=== PATIENT | female | born 1945 | race Caucasian/White ===

== ENCOUNTER 2016-09-05 20:29 | Emergency (ER) | payer OTHER, MEDICARE ==
[~2016-09-05] VITALS: Ht 167.6 cm; Wt 81.7 kg
[~2016-09-05 20:29] MED LIST: CALCTAB5 PO; CHOL100010 PO; CLON1TAB3 PO; FLEC100T21 PO; HYD50 PO; MAGN400T6 PO; METO25TA56 PO; PRT/40 PO; RIVA1TAB4 PO
[2016-09-05 20:37] VITALS: TEMP 36.8; Ht 167.6 cm; Wt 81.7 kg
[2016-09-05] MEDS ORDERED: HydrALAZINE HCL 20 MG/ML VIAL IV. STA (21:36)
--- NOTE | 2016-09-05 21:56 | DIAGNOSTIC IMAGING REPORT ---
CHEST ONE VIEW PORTABLE CLINICAL HISTORY: Chest pain. COMPARISON STUDY: Chest radiograph September 21, 2015. FINDINGS: Lung volumes are normal. There is no pneumothorax or pleural effusion. There is no evidence of pulmonary edema. Mild cardiomegaly is unchanged. No consolidation is identified to suggest pneumonia. IMPRESSION: No acute cardiopulmonary findings. No change in appearance of the chest. Electronically signed by: Joey Hill M.D. 09/05/2016 9:55 PM Dictated Date/Time: 09/05/2016 9:54 PM
[2016-09-05] MEDS ORDERED: CHOL200010 PO (22:08)
[2016-09-05] MEDS ORDERED: FLEC150T PO (22:08)
[2016-09-05] MEDS ORDERED: CALC-393 PO (22:08)
[2016-09-05 22:10] VITALS: O2SAT 98
[2016-09-05 22:17] LABS: BASO % 0.3 %; BASO ABS # 0.03 K/uL (0-0.2); COMPLETE YES; EOS % 2.5 %; HEMATOCRIT 41.5 % (37-47); IG% 0.2 %; LYMPH % 22.3 %; LYMPH ABS # 1.99 K/uL (1.2-3.4); MEAN CELL VOLUME 88.1 fL (80-100); MEAN CORPUSCULAR HEMOGLOBIN 31.8 pg (25-34); MEAN CORPUSCULAR HGB CONC 36.1 g/dl (32-36); MEAN PLATELET VOLUME 9.5 fL (7.4-10.4); MONO % 12.6 %; NEUT % 62.1 %; PLATELET COUNT 260 K/uL (130-400); RED BLOOD COUNT 4.71 M/uL (4.2-5.4); WHITE BLOOD COUNT 8.94 K/uL (4.8-10.8)
[2016-09-05 22:36] LABS: URINE APPEARANCE CLEAR (CLEAR); URINE BILIRUBIN NEG (NEG); URINE COLOR YELLOW; URINE NITRITE NEG (NEG); URINE SPECIFIC GRAVITY 1.002 (1.000-1.030); UROBILINOGEN NEG (NEG); ZZUR CULT IF INDIC CLEAN CATCH NO
--- NOTE | 2016-09-05 22:36 | DIAGNOSTIC IMAGING REPORT ---
CT OF THE HEAD WITHOUT CONTRAST CLINICAL HISTORY: Headache. Hypertension. COMPARISON STUDY: Head CT November 30, 2015. CT DOSE: 537.48 mGy.cm TECHNIQUE: Helical axial images of the head were obtained without IV contrast. Automated exposure control was utilized for the study. FINDINGS: No acute intracranial hemorrhage, midline shift or mass effect is present. Ventricular system is stable. Basilar cisterns are patent. There are no extra-axial collections. Peña-white differentiation is maintained. There are no findings to suggest acute dural sinus thrombosis or acute territorial infarct. There are no significant calvarial abnormalities. Visualized portions of the sinuses and mastoid air cells are clear. IMPRESSION: No acute intracranial findings. Electronically signed by: Joey Hill M.D. 09/05/2016 10:34 PM Dictated Date/Time: 09/05/2016 10:32 PM
[2016-09-05 22:46] LABS: MANUAL MICROSCOPIC REQUIRED? NO; REVIEW REQ? NO
[2016-09-05 22:51] LABS: ALT/SGPT 27 U/L (12-78); BLOOD UREA NITROGEN 21 mg/dl (7-18); BUN/CREATININE RATIO 24.2 (10-20); CALCIUM 9.2 mg/dl (8.5-10.1); CARBON DIOXIDE 31 mmol/L (21-32); CHLORIDE 101 mmol/L (98-107); CREATININE 0.86 mg/dl (0.60-1.20); GLUCOSE 97 mg/dl (70-99); POTASSIUM 3.8 mmol/L (3.5-5.1); SODIUM 139 mmol/L (136-145)
[2016-09-05 23:04] LABS: ALKALINE PHOSPHATASE 107 U/L (45-117); AST/SGOT 21 U/L (15-37)
--- NOTE | 2016-09-05 23:13 | EMERGENCY ROOM VISIT NOTE ---
ED Visit Note First contact with patient: 21:27 Patient with history of hypertension and elevated blood pressure. Reexamination patient is nonfocal neurologically he has decreased blood pressure after IV hydralazine. I agree with Zo Hart physician butcher assistant workup Problem List Medical Problems: (1) AF (atrial fibrillation) Status: Chronic (2) GERD (gastroesophageal reflux disease) Status: Chronic (3) HTN (hypertension) Status: Chronic (4) Migraine Status: Chronic (5) Restless Legs Syndrome Status: Chronic Current/Historical Medications Scheduled Calcium Carbonate (Calcium), 600 MG PO DAILY Cholecalciferol (Vitamin D), 2,000 UNIT PO DAILY Clonazepam (Klonopin), 1 MG PO HS Flecainide Acetate (Flecainide Acetate), 150 MG PO BID Hydrochlorothiazide (Hydrochlorothiazide), 50 MG PO DAILY Magnesium Oxide (Mag-Ox), 800 MG PO QAM Metoprolol Tartrate (Lopressor) (Lopressor), 25 MG PO BID Pantoprazole (Pantoprazole Sodium), 40 MG PO QPM Rivaroxaban (Xarelto), 20 MG PO QPM Allergies Coded Allergies: Oxycodone (Verified Allergy, Unknown, adverse effects on blood pressure, ) Prednisone (Verified Adverse Reaction, Intermediate, WEAKNESS, 11/30/15) Lisinopril (Verified Adverse Reaction, Unknown, cough, 11/30/15) Reports Dr Meng/project director, took pt off this medication Morphine (Verified Adverse Reaction, Unknown, ADVERSE EFFECTS OF BLOOD PRESSURE, 11/30/15) Vital Signs Date Time Temp Pulse Resp B/P Pulse Ox O2 Delivery O2 Flow Rate FiO2 09/05/16 22:10 98 Room Air 09/05/16 22:10 98 Room Air 09/05/16 22:10 66 16 199/100 98 Room Air 09/05/16 22:04 57 09/05/16 20:37 36.8 53 18 232/109 97 Room Air Laboratory Results 09/05/16 22:00 Red Blood Count 4.71, Mean Corpuscular Volume 88.1, Mean Corpuscular Hemoglobin 31.8, Mean Corpuscular Hemoglobin Concent 36.1, Mean Platelet Volume 9.5, Neutrophils (%) (Auto) 62.1, Lymphocytes (%) (Auto) 22.3, Monocytes (%) (Auto) 12.6, Eosinophils (%) (Auto) 2.5, Basophils (%) (Auto) 0.3, Neutrophils # (Auto ) 5.55, Lymphocytes # (Auto) 1.99, Monocytes # (Auto) 1.13, Eosinophils # (Auto ) 0.22, Basophils # (Auto) 0.03 09/05/16 22:00 Test 09/05/16 22:00 White Blood Count 8.94 K/uL (4.8-10.8) Red Blood Count 4.71 M/uL (4.2-5.4) Hemoglobin 15.0 g/dL (12.0-16.0) Hematocrit 41.5 % (37-47) Mean Corpuscular Volume 88.1 fL (80-100) Mean Corpuscular Hemoglobin 31.8 pg (25-34) Mean Corpuscular Hemoglobin Concent 36.1 g/dl (32-36) Platelet Count 260 K/uL (130-400) Mean Platelet Volume 9.5 fL (7.4-10.4) Neutrophils (%) (Auto) 62.1 % Lymphocytes (%) (Auto) 22.3 % Monocytes (%) (Auto) 12.6 % Eosinophils (%) (Auto) 2.5 % Basophils (%) (Auto) 0.3 % Neutrophils # (Auto) 5.55 K/uL (1.4-6.5) Lymphocytes # (Auto) 1.99 K/uL (1.2-3.4) Monocytes # (Auto) 1.13 K/uL (0.11-0.59) Eosinophils # (Auto) 0.22 K/uL (0-0.5) Basophils # (Auto) 0.03 K/uL (0-0.2) RDW Standard Deviation 38.5 fL (36.4-46.3) RDW Coefficient of Variation 12.0 % (11.5-14.5) Immature Granulocyte % (Auto) 0.2 % Immature Granulocyte # (Auto) 0.02 K/uL (0.00-0.02) Urine Color YELLOW Urine Appearance CLEAR (CLEAR) Urine pH 6.0 (4.5-7.5) Urine Specific [place] 1.002 (1.000-1.030) Urine Protein NEG (NEG) Urine Glucose (UA) NEG (NEG) Urine Ketones NEG (NEG) Urine Occult Blood NEG (NEG) Urine Nitrite NEG (NEG) Urine Bilirubin NEG (NEG) Urine Urobilinogen NEG (NEG) Urine Leukocyte Esterase MODERATE (NEG) Urine WBC (Auto) 5-10 /hpf (0-5) Urine RBC (Auto) 0-4 /hpf (0-4) Urine Hyaline Casts (Auto) 0 /lpf (0-5) Urine Epithelial Cells (Auto) 10-20 /lpf (0-5) Urine Bacteria (Auto) NEG (NEG) Anion Gap 7.0 mmol/L (3-11) Est Creatinine Clear Calc Drug Dose 62.8 ml/min Estimated GFR () 77.7 Estimated GFR (Non- 67.0 BUN/Creatinine Ratio 24.2 (10-20) Calcium Level 9.2 mg/dl (8.5-10.1) Total Bilirubin 0.3 mg/dl (0.2-1) Direct Bilirubin mg/dl (0-0.2) Aspartate Amino Transf (AST/SGOT) 21 U/L (15-37) Alanine Aminotransferase (ALT/SGPT) 27 U/L (12-78) Alkaline Phosphatase 107 U/L (45-117) Troponin I < 0.015 ng/ml (0-0.045) Total Protein 7.3 gm/dl (6.4-8.2) Albumin 3.7 gm/dl (3.4-5.0) Thyroid Stimulating Hormone (TSH) 3.560 uIu/ml (0.300-4.500) Chemistry Specimen Hemolysis Medications Administered Medications (Trade) Dose Ordered Sig/Rebecca Route Start Time Stop Time Status Last Admin Dose Admin Hydralazine HCl (HydrALAZINE INJ) 10 mg NOW STAT IV. 09/05/16 21:36 09/05/16 21:37 DC 09/05/16 22:15 10 MG Departure Information Referrals Tessie Pathak DO (PCP) Patient Instructions My [facility]
[2016-09-05 23:20] VITALS: BP 148/84; PULSE 70; O2SAT 98
--- NOTE | 2016-09-06 01:05 | EMERGENCY ROOM VISIT NOTE ---
History First contact with patient: 21:27 Chief Complaint: HYPERTENSION Stated Complaint: HIGH BP History of Present Illness The patient is a 71 year old female who presents to the Emergency Room with complaints of headache and head pressure with elevated blood pressure today that started around 5:30 PM. Patient states she's had problems with her blood pressure. She describes the headache as throbbing, ranging in severity 5 out of 10 throughout the frontal region. Nothing makes it better or worse. Patient denies chest pain, dyspnea, fever, chills, nausea, vomiting, diarrhea, weakness, numbness, tingling, vision problems, leg pain or swelling. No other complains per patient. No history of heart attack or stroke. She is on Xarelto for A. fib. No Other blood thinners. 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 Review of Systems See HPI for pertinent positives & negatives. A total of 10 systems reviewed and were otherwise negative. Past Medical/Surgical History Medical Problems: (1) AF (atrial fibrillation) (2) GERD (gastroesophageal reflux disease) (3) HTN (hypertension) (4) Migraine (5) Restless Legs Syndrome Family History Cancer FH: heart disease Stroke Social History Smoking Status: Never Smoker Marital Status: Housing Status: lives with significant other Occupation Status: retired Current/Historical Medications Scheduled Calcium Carbonate (Calcium), 600 MG PO DAILY Cholecalciferol (Vitamin D), 2,000 UNIT PO DAILY Clonazepam (Klonopin), 1 MG PO HS Flecainide Acetate (Flecainide Acetate), 150 MG PO BID Hydrochlorothiazide (Hydrochlorothiazide), 50 MG PO DAILY Magnesium Oxide (Mag-Ox), 800 MG PO QAM Metoprolol Tartrate (Lopressor) (Lopressor), 25 MG PO BID Pantoprazole (Pantoprazole Sodium), 40 MG PO QPM Rivaroxaban (Xarelto), 20 MG PO QPM Allergies Coded Allergies: Oxycodone (Verified Allergy, Unknown, adverse effects on blood pressure, ) Prednisone (Verified Adverse Reaction, Intermediate, WEAKNESS, 11/30/15) Lisinopril (Verified Adverse Reaction, Unknown, cough, 11/30/15) Reports Dr Meng/pigment making supervisor, took pt off this medication Morphine (Verified Adverse Reaction, Unknown, ADVERSE EFFECTS OF BLOOD PRESSURE, 11/30/15) Physical Exam Vital Signs Date Time Temp Pulse Resp B/P Pulse Ox O2 Delivery O2 Flow Rate FiO2 09/05/16 23:20 70 16 148/84 98 09/05/16 22:10 98 Room Air 09/05/16 22:10 98 Room Air 09/05/16 22:10 66 16 199/100 98 Room Air 09/05/16 22:04 57 09/05/16 20:37 36.8 53 18 232/109 97 Room Air Physical Exam VITALS: Vitals are noted on the nurse's note and reviewed by myself. Vital signs hypertensive. GENERAL: Pleasant female, in no acute distress, nondiaphoretic, well-developed well-nourished. SKIN: The skin was without rashes, erythema, edema, or bruising. There is no tenting of the skin. Capillary reflex less than 2 seconds. HEAD: Normocephalic atraumatic. EARS: External auditory canals clear, tympanic membranes pearly dewey without erythema or effusion bilaterally. EYES: Pupils equal round and reactive to light and accommodation. Conjunctivae without injection, sclerae without icterus. Extraocular movements intact. NOSE: Patent, turbinates without inflammation or discharge. No sinus tenderness. MOUTH: Mucous membranes moist. Pharynx without erythema or exudate. Uvula midline. Airway patent. Tongue does not deviate. NECK: Supple without nuchal rigidity. No lymphadenopathy. No thyromegaly. Cervical spine is nontender. No JVD. HEART: Regular rate and rhythm without murmurs gallops or rubs. LUNGS: Clear to auscultation bilaterally without wheezes, rales or rhonchi. No dullness to percussion. No retractions or accessory muscle use. ABDOMEN: Positive bowel sounds x 4. Normal tympanic percussion. Soft, nontender, without masses or organomegaly. Carrillo sign negative. No guarding or rebound tenderness. MUSCULOSKELETAL: No muscle atrophy, erythema, or edema noted. NEURO: Patient was alert and oriented to person place and time. Normal sensation to light and sharp touch. No focal neurological deficits. Cranial nerves II through XII grossly intact. No pronator drift. Cerebellar exam intact. 5 out of 5 strength throughout Medical Decision & Procedures Laboratory Results 09/05/16 22:00 Red Blood Count 4.71, Mean Corpuscular Volume 88.1, Mean Corpuscular Hemoglobin 31.8, Mean Corpuscular Hemoglobin Concent 36.1, Mean Platelet Volume 9.5, Neutrophils (%) (Auto) 62.1, Lymphocytes (%) (Auto) 22.3, Monocytes (%) (Auto) 12.6, Eosinophils (%) (Auto) 2.5, Basophils (%) (Auto) 0.3, Neutrophils # (Auto ) 5.55, Lymphocytes # (Auto) 1.99, Monocytes # (Auto) 1.13, Eosinophils # (Auto ) 0.22, Basophils # (Auto) 0.03 09/05/16 22:00 Test 09/05/16 22:00 White Blood Count 8.94 K/uL (4.8-10.8) Red Blood Count 4.71 M/uL (4.2-5.4) Hemoglobin 15.0 g/dL (12.0-16.0) Hematocrit 41.5 % (37-47) Mean Corpuscular Volume 88.1 fL (80-100) Mean Corpuscular Hemoglobin 31.8 pg (25-34) Mean Corpuscular Hemoglobin Concent 36.1 g/dl (32-36) Platelet Count 260 K/uL (130-400) Mean Platelet Volume 9.5 fL (7.4-10.4) Neutrophils (%) (Auto) 62.1 % Lymphocytes (%) (Auto) 22.3 % Monocytes (%) (Auto) 12.6 % Eosinophils (%) (Auto) 2.5 % Basophils (%) (Auto) 0.3 % Neutrophils # (Auto) 5.55 K/uL (1.4-6.5) Lymphocytes # (Auto) 1.99 K/uL (1.2-3.4) Monocytes # (Auto) 1.13 K/uL (0.11-0.59) Eosinophils # (Auto) 0.22 K/uL (0-0.5) Basophils # (Auto) 0.03 K/uL (0-0.2) RDW Standard Deviation 38.5 fL (36.4-46.3) RDW Coefficient of Variation 12.0 % (11.5-14.5) Immature Granulocyte % (Auto) 0.2 % Immature Granulocyte # (Auto) 0.02 K/uL (0.00-0.02) Urine Color YELLOW Urine Appearance CLEAR (CLEAR) Urine pH 6.0 (4.5-7.5) Urine Specific [place] 1.002 (1.000-1.030) Urine Protein NEG (NEG) Urine Glucose (UA) NEG (NEG) Urine Ketones NEG (NEG) Urine Occult Blood NEG (NEG) Urine Nitrite NEG (NEG) Urine Bilirubin NEG (NEG) Urine Urobilinogen NEG (NEG) Urine Leukocyte Esterase MODERATE (NEG) Urine WBC (Auto) 5-10 /hpf (0-5) Urine RBC (Auto) 0-4 /hpf (0-4) Urine Hyaline Casts (Auto) 0 /lpf (0-5) Urine Epithelial Cells (Auto) 10-20 /lpf (0-5) Urine Bacteria (Auto) NEG (NEG) Anion Gap 7.0 mmol/L (3-11) Est Creatinine Clear Calc Drug Dose 62.8 ml/min Estimated GFR () 77.7 Estimated GFR (Non- 67.0 BUN/Creatinine Ratio 24.2 (10-20) Calcium Level 9.2 mg/dl (8.5-10.1) Total Bilirubin 0.3 mg/dl (0.2-1) Direct Bilirubin mg/dl (0-0.2) Aspartate Amino Transf (AST/SGOT) 21 U/L (15-37) Alanine Aminotransferase (ALT/SGPT) 27 U/L (12-78) Alkaline Phosphatase 107 U/L (45-117) Troponin I < 0.015 ng/ml (0-0.045) Total Protein 7.3 gm/dl (6.4-8.2) Albumin 3.7 gm/dl (3.4-5.0) Thyroid Stimulating Hormone (TSH) 3.560 uIu/ml (0.300-4.500) Chemistry Specimen Hemolysis Medications Administered Medications (Trade) Dose Ordered Sig/Rebecca Route Start Time Stop Time Status Last Admin Dose Admin Hydralazine HCl (HydrALAZINE INJ) 10 mg NOW STAT IV. 09/05/16 21:36 09/05/16 21:37 DC 09/05/16 22:15 10 MG ED Course Prior records/ancillary studies reviewed regarding the history above. Triage Nursing notes reviewed. Additional history obtained from the family. The patient's history was concerning for hypertension. Differential diagnosis: Etiologies such as benign hypertension, hypertensive emergency, cardiovascular pathology, pheochromocytoma, electrolyte abnormality, renal disease, endorgan damage, as well as others were entertained. Physical examination: As above. No signs of end organ damage. ER treatment provided: Hydralazine On reassessment the patient felt better. Diagnostic interpretation by me: The electrocardiogram was negative for pathologic change. Normal sinus, normal intervals, no acute ST-T wave changes. Impression sinus bradycardia interpreted by myself The labs revealed no worrisome leukocytosis or electrolyte abnormality Imaging studies: Head CT was read by radiology and negative for intracranial bleed This appears to be consistent with effort and urgency. Patient's blood pressure did improve. She is advised to monitor her blood pressure. Patient was neurovascularly and neurologically intact. She is well-appearing. She is advised to monitor blood pressure and follow-up family care in a few days or here in the ER sooner for chest pain, difficulty breathing, elevated blood pressure, numbness, tingling, worsening signs or symptoms or as needed. By the evaluation outlined above emergent etiologies such as hypertensive emergency, pheochromocytoma, endorgan damage, cardiac ischemia, aortic dissection, pulmonary embolism, pneumonia, pneumothorax, infections, gastrointestinal, as well as others were deemed relatively unlikely. The pt informed about the findings as listed above. All questions were answered and pleased with the treatment. Return instructions were outlined and the patient was discharged in stable condition. Referral: The patient was referred back to their primary care physician for follow-up in 2 to 3 days for a recheck of the current condition. Case reviewed with my attending Medical Decision As above Impression Primary Impression: Hypertensive urgency Departure Information Referrals Tessie Pathak DO (PCP) Patient Instructions My [facility]
[2016-09-26] MEDS ORDERED: CRG125 PO (13:18)
[2016-09-26] MEDS ORDERED: CZR25 PO (13:18)
== END 2016-09-05 23:24 | disposition home or self-care (01) ==
LOC: C.EDB 20:32 → C.EDC 23:24
DX: I16.0 Hypertensive urgency (principal); I48.91 Unspecified atrial fibrillation; K21.9 Gastro-esophageal reflux disease without esophagitis; G43.909 Migraine, unspecified, not intractable, without status migrainosus; G25.81 Restless legs syndrome; Z80.9 Family history of malignant neoplasm, unspecified; Z82.49 Family history of ischemic heart disease and other diseases of the circulatory system; Z79.01 Long term (current) use of anticoagulants; Z79.899 Other long term (current) drug therapy

== ENCOUNTER 2016-09-24 20:26 | Observation (INO) | payer OTHER, MEDICARE ==
[~2016-09-24] VITALS: Ht 167.6 cm; Wt 81.2 kg
[~2016-09-24 20:26] MED LIST changes: +CALC-393 PO; -CALCTAB5 PO; -CHOL100010 PO; +CHOL200010 PO; -FLEC100T21 PO; +FLEC150T PO; +PANT40TA2 PO; -PRT/40 PO
--- NOTE | 2016-09-24 21:04 | DIAGNOSTIC IMAGING REPORT ---
CHEST ONE VIEW PORTABLE CLINICAL HISTORY: Chest pain. Hypertension COMPARISON STUDY: Chest radiograph September 05, 2016. FINDINGS: There is no pneumothorax or pleural effusion. Linear left basilar opacity is suggestive of atelectasis. Mild cardiomegaly is unchanged. Interstitial thickening is unchanged. There is no consolidation to suggest pneumonia. IMPRESSION: No acute cardiopulmonary findings. Stable cardiomegaly and interstitial thickening. Electronically signed by: Joey Hill M.D. 09/24/2016 9:03 PM Dictated Date/Time: 09/24/2016 9:02 PM
[2016-09-24 21:06] LABS: BASO % 0.4 %; BASO ABS # 0.03 K/uL (0-0.2); COMPLETE YES; EOS % 3.6 %; HEMATOCRIT 40.9 % (37-47); IG% 0.1 %; LYMPH % 28.6 %; LYMPH ABS # 1.91 K/uL (1.2-3.4); MEAN CELL VOLUME 88.7 fL (80-100); MEAN CORPUSCULAR HEMOGLOBIN 31.9 pg (25-34); MEAN CORPUSCULAR HGB CONC 35.9 g/dl (32-36); MEAN PLATELET VOLUME 9.9 fL (7.4-10.4); MONO % 12.6 %; NEUT % 54.7 %; PLATELET COUNT 266 K/uL (130-400); RED BLOOD COUNT 4.61 M/uL (4.2-5.4); WHITE BLOOD COUNT 6.67 K/uL (4.8-10.8)
[2016-09-24] MEDS ORDERED: LABETALOL HCL IV 5 MG/ML 20ML IV STA (21:12)
[2016-09-24 21:15] LABS: INR 1.1 (0.9-1.1); PARTIAL THROMBOPLASTIN RATIO 1.3
[2016-09-24 21:50] LABS: POTASSIUM 3.7 mmol/L (3.5-5.1)
[2016-09-24 21:51] LABS: BUN/CREATININE RATIO 19.6 (10-20); CALCIUM 9.2 mg/dl (8.5-10.1); CREATININE 0.93 mg/dl (0.60-1.20)
[2016-09-24] MEDS ORDERED: CTP1CL PO (22:12)
[2016-09-24 22:39] LABS: MAGNESIUM 1.7 mg/dl (1.8-2.4)
[2016-09-24] MEDS ORDERED: LOSARTAN POTASSIUM 25 MG TAB PO ONE (23:34)
[2016-09-24] MEDS ORDERED: POTASSIUM CHLORIDE 10 MEQ TABCR PO STA (23:34)
[2016-09-24] MEDS ORDERED: CLONAZEPAM 1 MG TAB PO ONE (23:34)
[2016-09-24] MEDS ORDERED: MAGNESIUM SULFATE 1GM / D5W 1 GM in PREMIXED IN D5W 100 ML IV ONE (23:45)
[2016-09-24] MEDS ORDERED: HYDROmorphone INJ 0.5 MG/0.5 ML SYR IV PRN (23:45)
[2016-09-24] MEDS ORDERED: ONDANSETRON INJ 2 MG/ML 2 ML VIAL IV PRN (23:45)
[2016-09-24] MEDS ORDERED: LORAZEPAM 2 MG/ML 1 ML VIAL IV PRN (23:45)
[2016-09-24] MEDS ORDERED: TRAMADOL HCL 50 MG TAB PO PRN (23:45)
[2016-09-25] VITALS (11 sets, daily range): BP systolic 118–199; BP diastolic 74–93; PULSE 51–80; TEMP 36.3–36.5; O2SAT 94–97; Ht 167.6 cm; Wt 81.2 kg
[2016-09-25] MEDS ORDERED: IV FLUIDS COMPLETED PRN (00:15)
[2016-09-25] MEDS ORDERED: MAGNESIUM SULFATE 1GM / D5W 1 GM BAG ONE (00:26)
[2016-09-25] MEDS ORDERED: CLONAZEPAM 0.5 MG TAB ONE (00:26)
--- NOTE | 2016-09-25 00:28 | EMERGENCY ROOM VISIT NOTE ---
History Report prepared by Carlin: Veronika Tariq Under the Supervision of: Dr. Lázaro Painter M.D. First contact with patient: 20:31 Chief Complaint: CHEST PAIN Stated Complaint: CHEST PAIN, HIGH BP 191/98 History of Present Illness The patient is a 71 year old female who presents to the Emergency Room with complaints of intermittent left sided chest pain beginning 30 minutes prior to arrival. She described the pain as a heaviness and gas sensation. The patient is experiencing shortness of breath. She also notes her blood pressure has been rising for the past 2 hours with her highest reading being 191/98. She states that she is taking her blood pressure medication. The patient's blood pressure medication was recently adjusted after her last ED visit for hypertension. She is currently on Losartan and Clonidine. She states her last dosage of Clonidine was at 6:30pm this evening. She states she stopped taking losartan because of side effects. The patient denies chest pain like this before, nausea, or diaphoresis. 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 A total of 10 systems reviewed and were otherwise negative. Past Medical & Surgical Medical Problems: (1) AF (atrial fibrillation) (2) GERD (gastroesophageal reflux disease) (3) HTN (hypertension) (4) Migraine (5) Restless Legs Syndrome Family History Cancer FH: heart disease Stroke Social History Smoking Status: Never Smoker Marital Status: Housing Status: lives with significant other Occupation Status: retired Current/Historical Medications Scheduled Calcium Carbonate (Calcium), 600 MG PO DAILY Cholecalciferol (Vitamin D), 2,000 UNIT PO DAILY Clonazepam (Klonopin), 1 MG PO HS Flecainide Acetate (Flecainide Acetate), 150 MG PO BID Hydrochlorothiazide (Hydrochlorothiazide), 50 MG PO DAILY Magnesium Oxide (Mag-Ox), 800 MG PO QAM Metoprolol Tartrate (Lopressor) (Lopressor), 25 MG PO BID Pantoprazole (Pantoprazole Sodium), 40 MG PO QPM Rivaroxaban (Xarelto), 20 MG PO QPM Scheduled PRN Clonidine Hcl (Catapres), 0.1 MG PO BID PRN for blood pressure Allergies Coded Allergies: Oxycodone (Verified Allergy, Unknown, adverse effects on blood pressure, ) Prednisone (Verified Adverse Reaction, Intermediate, WEAKNESS, 09/24/16) Lisinopril (Verified Adverse Reaction, Unknown, cough, 09/24/16) Reports Dr Meng/brush material preparer, took pt off this medication Morphine (Verified Adverse Reaction, Unknown, ADVERSE EFFECTS OF BLOOD PRESSURE, 09/24/16) Physical Exam Vital Signs Date Time Temp Pulse Resp B/P Pulse Ox O2 Delivery O2 Flow Rate FiO2 09/24/16 21:40 60 09/24/16 21:26 153/88 09/24/16 20:51 95 Room Air 09/24/16 20:30 36.8 62 20 210/86 96 Room Air Physical Exam Constitutional: Vital signs reviewed. Severely hypertensive. Eyes: Pupils are equal round reactive to light. Conjunctiva are noninjected. ENT: Pharynx is clear without erythema or exudate. Mucous membranes are moist. Neck supple without meningeal signs. Respiratory: Clear to auscultation bilaterally. Breath sounds are equal bilaterally. Cardiovascular: Regular rate and rhythm. No rubs or gallops. GI: Soft, nondistended and nontender. Bowel sounds are present. Musculoskeletal: No peripheral edema. No lower extremity tenderness. Integumentary: No cyanosis. Neurological: The patient is awake and alert. No focal deficits. Psychiatric: Normal affect. Medical Decision & Procedures ER Provider Diagnostic Interpretation: X-ray results as stated below per interpretation by me and the radiologist: CHEST ONE VIEW PORTABLE CLINICAL HISTORY: Chest pain. Hypertension COMPARISON STUDY: Chest radiograph September 05, 2016. FINDINGS: There is no pneumothorax or pleural effusion. Linear left basilar opacity is suggestive of atelectasis. Mild cardiomegaly is unchanged. Interstitial thickening is unchanged. There is no consolidation to suggest pneumonia. IMPRESSION: No acute cardiopulmonary findings. Stable cardiomegaly and interstitial thickening. Electronically signed by: Joey Hill M.D. 09/24/2016 9:03 PM Dictated Date/Time: 09/24/2016 9:02 PM Laboratory Results 09/24/16 20:48 Red Blood Count 4.61, Mean Corpuscular Volume 88.7, Mean Corpuscular Hemoglobin 31.9, Mean Corpuscular Hemoglobin Concent 35.9, Mean Platelet Volume 9.9, Neutrophils (%) (Auto) 54.7, Lymphocytes (%) (Auto) 28.6, Monocytes (%) (Auto) 12.6, Eosinophils (%) (Auto) 3.6, Basophils (%) (Auto) 0.4, Neutrophils # (Auto ) 3.64, Lymphocytes # (Auto) 1.91, Monocytes # (Auto) 0.84, Eosinophils # (Auto ) 0.24, Basophils # (Auto) 0.03 09/24/16 20:48 Test 09/24/16 20:48 09/24/16 20:54 White Blood Count 6.67 K/uL (4.8-10.8) Red Blood Count 4.61 M/uL (4.2-5.4) Hemoglobin 14.7 g/dL (12.0-16.0) Hematocrit 40.9 % (37-47) Mean Corpuscular Volume 88.7 fL (80-100) Mean Corpuscular Hemoglobin 31.9 pg (25-34) Mean Corpuscular Hemoglobin Concent 35.9 g/dl (32-36) Platelet Count 266 K/uL (130-400) Mean Platelet Volume 9.9 fL (7.4-10.4) Neutrophils (%) (Auto) 54.7 % Lymphocytes (%) (Auto) 28.6 % Monocytes (%) (Auto) 12.6 % Eosinophils (%) (Auto) 3.6 % Basophils (%) (Auto) 0.4 % Neutrophils # (Auto) 3.64 K/uL (1.4-6.5) Lymphocytes # (Auto) 1.91 K/uL (1.2-3.4) Monocytes # (Auto) 0.84 K/uL (0.11-0.59) Eosinophils # (Auto) 0.24 K/uL (0-0.5) Basophils # (Auto) 0.03 K/uL (0-0.2) RDW Standard Deviation 38.7 fL (36.4-46.3) RDW Coefficient of Variation 12.1 % (11.5-14.5) Immature Granulocyte % (Auto) 0.1 % Immature Granulocyte # (Auto) 0.01 K/uL (0.00-0.02) Prothrombin Time 12.0 SECONDS (9.0-12.0) Prothromb Time International Ratio 1.1 (0.9-1.1) Activated Partial Thromboplast Time 33.6 SECONDS (21.0-31.0) Partial Thromboplastin Ratio 1.3 Anion Gap 10.0 mmol/L (3-11) Est Creatinine Clear Calc Drug Dose 58.3 ml/min Estimated GFR () 70.7 Estimated GFR (Non- 61.0 BUN/Creatinine Ratio 19.6 (10-20) Calcium Level 9.2 mg/dl (8.5-10.1) Magnesium Level 1.7 mg/dl (1.8-2.4) Total Bilirubin 0.3 mg/dl (0.2-1) Direct Bilirubin 0.1 mg/dl (0-0.2) Aspartate Amino Transf (AST/SGOT) 23 U/L (15-37) Alanine Aminotransferase (ALT/SGPT) 48 U/L (12-78) Alkaline Phosphatase 119 U/L (45-117) Total Protein 7.1 gm/dl (6.4-8.2) Albumin 3.9 gm/dl (3.4-5.0) Lipase 433 U/L (73-393) Bedside Troponin I 0.000 ng/ml (0-0.045) Laboratory results as reviewed by me. Medications Administered Medications (Trade) Dose Ordered Sig/Rebecca Route Start Time Stop Time Status Last Admin Dose Admin Clonazepam (Klonopin Tab) 1 mg STK-MED ONCE .ROUTE 09/25/16 00:26 09/25/16 00:27 DC 09/25/16 00:21 1 MG Magnesium Sulfate (Magnesium Sulfate) 1 gm STK-MED ONCE .ROUTE 09/25/16 00:26 09/25/16 00:27 DC 09/25/16 00:22 1 GM ECG Indication: chest pain Rate (beats per minute): 61 Rhythm: sinus rhythm Findings: no acute ischemic change, no ectopy ED Course 2032: The patient was evaluated in room C5. A complete history and physical exam was performed. 2110: Patient blood pressure is 170/11. No chest pain at this time. 2111: Normodyne IV 10 mg IV. 2128: Nurse went to give Labetalol and pressure was 153/88. Medication will be cancelled. 2155: I reassessed the patient and discussed her test results with her. 2201: I spoke with Dr. OcKaterin. We discussed the patient and her results. The patient will be further evaluated by Dr. Joseph Pedraza. Medical Decision This is a 71-year-old female presents with high blood pressure and chest pain. Differential diagnosis includes unstable angina, SD, pleurisy, hypertensive emergency, medication noncompliance. I did perform a limited focused review of portions of the patient's old chart on the electronic medical record. The patient was in the ED September 05 for headache and high blood pressure. A head CT was negative. She was treated with Hydralazine and discharged home. I did evaluate the patient as noted above. She is not currently having any chest pain at this time. IV access was established. The patient was placed on a continuous urology surgeon. I did order and personally review the patient's 12-lead EKG and chest x-ray as described above. I did order and review the patient's blood work as noted in the electronic medical record. Troponin is negative. Initially the patient was severely hypertensive. I did watch her for some time and her blood pressure did come down but was still significantly elevated. I therefore ordered her IV labetalol but as the patient was about to receive it her nurse rechecked her blood pressure and it came down significantly and so the labetalol was canceled. I did discuss the test results with the patient. I did recommend hospitalization for repeat cardiac enzymes and further evaluation. I did discuss the case with the hospitalist and comp field case manager. Consults Time Called: 2199 Consulting Physician: Dr. Joseph Pedraza Returned Call: [address] Ray. We discussed the patient and her results. The patient will be further evaluated by Dr. Joseph Pedraza. Impression Primary Impression: Left sided chest pain Additional Impression: Poorly-controlled hypertension Scribe Attestation The scribe's documentation has been prepared under my direct and personally reviewed by me in its entirety. I confirm that the note above accurately reflects all work, treatment, procedures, and medical decision making performed by me. Departure Information Dispostion Being Evaluated By Hospitalist Referrals Tessie Pathak DO (PCP) Problem Qualifiers
[2016-09-25] MEDS ORDERED: ACETAMINOPHEN 325 MG TAB PO PRN (00:45)
[2016-09-25] MEDS ORDERED: NITROGLYCERIN 0.4 MG SL PER TAB CHARGE SL PRN (00:45)
--- NOTE | 2016-09-25 07:23 | HISTORY & PHYSICAL EXAMINATION ---
DATE OF ADMISSION: 09/24/2016 PRIMARY CARE DOCTOR: Dr. Pathak Hx obtained from px and records. CHIEF COMPLAINT: Chest pain. HISTORY OF PRESENT ILLNESS: Medical history is significant for PA-Fib on Xarelto, hypertension, arthritis and PSVT as per records. Recent confinement in October 2014 for knee surgery. In the last few weeks, patient's blood pressure was noted to be high - SBP as high as 230s at home sometimes. She would feel tired, short of breath with palpitations. No unusual stress but px's daughter feels patient is tired out by out of town travels. Patient admits to some fluid retention. Hands little swollen. Rings feel "tight'" Denies dietary indiscretion. Denies NSAID intake. She was seen at the Emergency Room a few weeks ago. She was seen by her PCP a few weeks ago. Losartan was added to her regimen. Clonidine was prescribed for SBP > 160. SBP down to 90s w one dose of Losartan as per px. PX felt that her throat would close off w/ one dose Clonidine. Patient was in touch with her communications media professor as well. Scheduled a followup in 2 weeks. Tonight she had left-sided chest pain like gas, no fever, no chills. SBP noted to be in the 210s. Patient was given labetalol in the Emergency Room. Currently, blood pressure was noted to be in the 150s. PX currently comfortable. MEDICAL HISTORY: As above. 2D Echo March 2015 LVH, normal systolic function. SURGERIES: She has had knee surgery. HOME MEDICATIONS: Include; magnesium oxide, Lopressor, Protonix, Xarelto and flecainide ALLERGIES: TO LISINOPRIL AND PREDNISONE. FAMILY HISTORY: Heart disease. PERSONAL AND SOCIAL HISTORY: Nonsmoker. No chronic intake of alcoholic beverages. 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 REVIEW OF SYSTEMS: As per HPI. all other ROS negative PHYSICAL EXAMINATION: VITAL SIGNS: Blood pressure was noted to be 210/86 later 150/70 pulse rate 60, RR 20 temp 36.3, sats 97 on room air. GENERAL: Noted to be comfortable, slightly overweight. no respiratory distress, slightly anxious. SKIN: Normal color. HEENT: Maybeury palpebral conjunctivae. Dry mucosa. NECK: Short neck. LUNGS: Decreased breath sounds. HEART: Regular rate and rhythm. ABDOMEN: Soft and nontender. EXTREMITIES: No LE edema, no tenderness. NEUROLOGIC: No gross focality. LABORATORIES: Hemoglobin was noted to be 14.7, hematocrit 40, white cell count 6.6, platelets 266. Sodium 140, K 3.7, chloride 96, CO2 30, BUN 18, creatinine 0.93, glucose 100 trop 0 Chest x-ray; cardiomegaly, interstitial thickening. EKG; rate 60, normal sinus rhythm, no ischemia. ASSESSMENT: 1. Chest pain likely secondary to hypertensive urgency unclear precipitant. 2. Paroxysmal atrial fibrillation, px NSR on Xarelto. PLAN: Observation PCU. Monitor BP response to addition of Losartan to regimen 2D echo. Cardio consult RE, chest pain, HTN (Patient known to Dr. Zambrano) Further management as per G cardiology. DVT prophylaxis, Xarelto. Full code. MTDD
[2016-09-25] MEDS: LOSARTAN POTASSIUM 25 MG TAB PO SCH (07:56)
[2016-09-25 08:10] LABS: BASO % 0.6 %; BASO ABS # 0.03 K/uL (0-0.2); COMPLETE YES; EOS % 3.4 %; HEMATOCRIT 40.9 % (37-47); IG% 0.2 %; LYMPH % 27.7 %; LYMPH ABS # 1.29 K/uL (1.2-3.4); MEAN CELL VOLUME 87.8 fL (80-100); MEAN CORPUSCULAR HEMOGLOBIN 31.1 pg (25-34); MEAN CORPUSCULAR HGB CONC 35.5 g/dl (32-36); MEAN PLATELET VOLUME 9.6 fL (7.4-10.4); MONO % 12.7 %; NEUT % 55.4 %; PLATELET COUNT 246 K/uL (130-400); RED BLOOD COUNT 4.66 M/uL (4.2-5.4); WHITE BLOOD COUNT 4.66 K/uL (4.8-10.8)
[2016-09-25 08:41] LABS: BLOOD UREA NITROGEN 19 mg/dl (7-18); BUN/CREATININE RATIO 25.2 (10-20); CALCIUM 9.2 mg/dl (8.5-10.1); CARBON DIOXIDE 31 mmol/L (21-32); CHLORIDE 100 mmol/L (98-107); CREATININE 0.75 mg/dl (0.60-1.20); GLUCOSE 95 mg/dl (70-99); POTASSIUM 3.9 mmol/L (3.5-5.1); SODIUM 138 mmol/L (136-145)
[2016-09-25] MEDS: FLECAINIDE ACETATE 100 MG TAB PO SCH ×2 (08:54→20:54)
[2016-09-25] MEDS: HYDROCHLOROTHIAZIDE 50 MG TAB PO SCH (08:56)
[2016-09-25] MEDS ORDERED: METOPROLOL TARTRATE 25 MG TAB PO SCH (09:00)
[2016-09-25] MEDS ORDERED: CARVEDILOL 6.25 MG TAB PO ONE (10:45)
--- NOTE | 2016-09-25 12:36 | CARDIOLOGY CONSULTATION ---
DATE OF CONSULTATION: 09/25/2016 DATE OF CONSULTATION: 09/25/2016. REFERRING PHYSICIAN: Dr. Ruiz. REASON FOR CONSULTATION: Hypertensive urgency. CHIEF COMPLAINT ON ADMISSION: Headache, elevated blood pressure. HISTORY OF PRESENT ILLNESS: Ms. Dumont is a 71-year-old female with a history of PSVT, AFib, labile hypertension with recent hospitalizations for hypertensive urgency. She presented to the Emergency Department with elevated blood pressure, headache, and fleeting chest discomfort. The patient took oral clonidine prior to arrival in the ED. She was given intravenous labetalol. Blood pressures have improved overnight. Her a.m. dose of metoprolol was held due to parameters. Her blood pressure slowly trending upwards. She is currently feeling well from a cardiovascular perspective. Denies chest pain, shortness of breath, palpitations, visual changes, focal weakness, slurred speech, or gait instability. No lightheadedness, dizziness, syncope or near syncope. Denies personal history of coronary disease, congestive heart failure, rheumatic fever as a child, or peripheral vascular disease. Her most recent stress test was performed in 2014 and was negative for inducible ischemia. Recent medication changes include addition of losartan 25 mg daily by her PCP as well as the addition of p.r.n. clonidine by her PCP for episodes of elevated systolic blood pressure. The patient notes travelling recently to [place]. She experienced 2-3 episodes of elevated blood pressure during that trip. She admits to eating frequently in restaurants as well as intermittent excessive sodium intake. Offers no other complaints at this time. REVIEW OF SYSTEMS: The pertinent positives noted above. A comprehensive 10-system review is otherwise negative. PAST MEDICAL HISTORY: 1. Paroxysmal atrial fibrillation. 2. Labile hypertension. 3. Paroxysmal supraventricular tachycardia. 4. GERD. 5. Restless leg syndrome. 6. Osteoarthritis status post knee replacement. 7. Atypical chest pain. 8. 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 PAST SURGICAL HISTORY: Knee replacement. FAMILY HISTORY: Negative for premature coronary artery disease or sudden cardiac . SOCIAL HISTORY: Lifelong smoker. Denies alcohol or illicit drug use. ALLERGIES: LISINOPRIL -- COUGH. PREDNISONE. OUTPATIENT MEDICATIONS: 1. Losartan 25 mg daily. 2. Clonidine 0.1 mg tablet twice a day as needed. 3. Xarelto 20 mg daily. 4. Zovirax 1 capsule every 4 hours while awake. 5. Klonopin 1 tablet at bedtime as needed. 6. Flecainide 150 mg twice daily. 7. Hydrochlorothiazide 50 mg daily. 8. Protonix 40 mg daily. 9. Metoprolol 25 mg twice daily. 10. Albuterol inhaler daily. 11. Magnesium 400 mg twice daily. 12. Vitamin D daily. 13. Calcium daily. ECG on admission demonstrates sinus bradycardia, no acute ST changes. Chest x-ray on admission, no acute cardiopulmonary findings. LABORATORY DATA: Cardiac enzymes are negative x2 sets. Sodium 138, potassium 3.9, chloride 100, CO2 is 31, BUN is 19, creatinine is 0.75, INR is 1.1. White blood cell count 6.67, hemoglobin is 14.5. Platelet count is 246. INR is 1.1. Resting 2D transthoracic echo is pending. PHYSICAL EXAMINATION: VITAL SIGNS: Temperature 36.4 degrees centigrade, pulse 54 beats per minute and regular, respiratory rate is 18 breaths per minute, blood pressure 160/74. SAO2 is 97% on room air. GENERAL: NAD, awake, alert and oriented x3. HEAD, EYES, EARS, NOSE, AND THROAT: Her mucous membranes are moist. No scleral icterus. Conjunctivae pink. Left-sided subconjunctival hemorrhage. NECK: Supple. There is no JVD, no HJR, no carotid bruit. HEART: Regular with a normal S1 and S2. There is no murmur, rub, or gallop. LUNGS: Clear. There are no rales, rhonchi or wheeze. ABDOMEN: Soft and nontender. There is no rebound or guarding. Normal bowel sounds. EXTREMITIES: Warm and dry without clubbing, cyanosis, or edema. Dorsalis pedis pulses are 2/4 bilaterally. NEUROLOGIC EXAMINATION: Demonstrates no focal motor deficit. Cranial nerves are grossly intact. PSYCHIATRIC: Normal affect and mood. FINAL IMPRESSIONS: 1. Hypertensive urgency. 2. Paroxysmal atrial fibrillation, currently sinus rhythm on chronic flecainide therapy. Chronically anticoagulated with Xarelto. 3. Atypical chest discomfort. 4. Transient headache related to #1. 5. History of paroxysmal supraventricular tachycardia -- no recurrence. 6. History of tdpdhoyfhip-slbhemuyae-bpvrsl inhibitor induced cough, tolerating angiotensin-receptor alejandro. PLAN AND RECOMMENDATIONS: I had a long discussion with the patient regarding her poorly controlled labile hypertension and multiple ER visits in recent weeks regarding spikes in her blood pressure. It appears she was intolerant to clonidine due to an abnormal "lump in her throat." She has tolerated low dose angiotensin receptor alejandro recently added by her PCP. I will discontinue her metoprolol today in favor of carvedilol 6.25 mg twice daily. Other cardiovascular medications will be continued as listed above which I reviewed and updated today. Testing 2D transthoracic echo will be reviewed when available.
--- NOTE | 2016-09-25 14:19 | Progress Note ---
Internal Med Progress Note Date of Service: Sep 25, 2016. Provider Documentation: SUBJECTIVE: The patient was seen and examined Feels a lot better today BP is improving Denies any chest pain,palpitation ,sob OBJECTIVE: Vital Signs-as noted below Exam: General-no distress at rest Eyes-normal ENT-normal Neck-Supple Lungs-clear to ausucltate bilaterally Heart-Regular,no murmur appreciated Abdomen-Benign,no masses,bowel sound present Extremities-No edema Neuro-AAox3 Lab data as noted below. ASSESSMENT & PLAN: Hypertensive Urgency Seems to have labile HTN Symptoms are suggestive from High BP Appreciate Cardiology input Has been on Coreg,HCTZ and ACEI Medications titrated and BP is improving Chest pain likely secondary to hypertensive urgency Serial Hipolito negative Await ECHO Paroxysmal atrial fibrillation, px NSR on Xarelto. No acute issue DVT prophylaxis, Xarelto. Full code. DISPOSITION Awaited Vital Signs: Date Time Temp Pulse Resp B/P Pulse Ox O2 Delivery O2 Flow Rate FiO2 09/25/16 11:00 36.4 64 176/87 96 Room Air 09/25/16 10:00 51 160/74 58 179/81 09/25/16 07:26 36.4 54 18 169/75 97 Room Air 09/25/16 04:00 Room Air 09/25/16 04:00 36.3 80 18 118/74 97 Room Air 09/25/16 01:45 36.5 60 20 168/77 94 Room Air 09/25/16 00:27 57 18 150/69 93 Room Air 09/24/16 21:40 60 09/24/16 21:26 153/88 09/24/16 20:51 95 Room Air 09/24/16 20:30 36.8 62 20 210/86 96 Room Air Lab Results: Results Past 24 Hours Test 09/24/16 20:48 09/24/16 20:54 09/25/16 07:34 Range/Units White Blood Count 6.67 4.66 4.8-10.8 K/uL Red Blood Count 4.61 4.66 4.2-5.4 M/uL Hemoglobin 14.7 14.5 12.0-16.0 g/dL Hematocrit 40.9 40.9 37-47 % Mean Corpuscular Volume 88.7 87.8 80-100 fL Mean Corpuscular Hemoglobin 31.9 31.1 25-34 pg Mean Corpuscular Hemoglobin Concent 35.9 35.5 32-36 g/dl Platelet Count 266 246 130-400 K/uL Mean Platelet Volume 9.9 9.6 7.4-10.4 fL Neutrophils (%) (Auto) 54.7 55.4 % Lymphocytes (%) (Auto) 28.6 27.7 % Monocytes (%) (Auto) 12.6 12.7 % Eosinophils (%) (Auto) 3.6 3.4 % Basophils (%) (Auto) 0.4 0.6 % Neutrophils # (Auto) 3.64 2.58 1.4-6.5 K/uL Lymphocytes # (Auto) 1.91 1.29 1.2-3.4 K/uL Monocytes # (Auto) 0.84 0.59 0.11-0.59 K/uL Eosinophils # (Auto) 0.24 0.16 0-0.5 K/uL Basophils # (Auto) 0.03 0.03 0-0.2 K/uL RDW Standard Deviation 38.7 38.6 36.4-46.3 fL RDW Coefficient of Variation 12.1 12.1 11.5-14.5 % Immature Granulocyte % (Auto) 0.1 0.2 % Immature Granulocyte # (Auto) 0.01 0.01 0.00-0.02 K/uL Prothrombin Time 12.0 9.0-12.0 SECONDS Prothromb Time International Ratio 1.1 0.9-1.1 Activated Partial Thromboplast Time 33.6 21.0-31.0 SECONDS Partial Thromboplastin Ratio 1.3 Sodium Level 136 138 136-145 mmol/L Potassium Level 3.7 3.9 3.5-5.1 mmol/L Chloride Level 96 100 98-107 mmol/L Carbon Dioxide Level 30 31 21-32 mmol/L Anion Gap 10.0 7.0 3-11 mmol/L Blood Urea Nitrogen 18 19 7-18 mg/dl Creatinine 0.93 0.75 0.60-1.20 mg/dl Est Creatinine Clear Calc Drug Dose 58.3 71.8 ml/min Estimated GFR () 70.7 91.7 Estimated GFR (Non- 61.0 79.1 BUN/Creatinine Ratio 19.6 25.2 10-20 Random Glucose 123 95 70-99 mg/dl Calcium Level 9.2 9.2 8.5-10.1 mg/dl Magnesium Level 1.7 2.0 1.8-2.4 mg/dl Total Bilirubin 0.3 0.2-1 mg/dl Direct Bilirubin 0.1 0-0.2 mg/dl Aspartate Amino Transf (AST/SGOT) 23 15-37 U/L Alanine Aminotransferase (ALT/SGPT) 48 12-78 U/L Alkaline Phosphatase 119 45-117 U/L Total Protein 7.1 6.4-8.2 gm/dl Albumin 3.9 3.4-5.0 gm/dl Lipase 433 339 73-393 U/L Bedside Troponin I 0.000 0-0.045 ng/ml Troponin I < 0.015 0-0.045 ng/ml Thyroid Stimulating Hormone (TSH) 3.010 0.300-4.500 uIu/ml
--- NOTE | 2016-09-25 15:46 | ECHOCARDIOGRAM REPORT ---
*NOTICE TO RECEIVING REPUBLICAN AGENCY This information is strictly Confidential and protected under [place] law. [place] law prohibits you from making any further disclosure of this information unless further disclosure is expressly permitted by the written consent of the person to whom it pertains or is authorized by law. A general authorization for the release of medical or other information is not sufficient for this purpose. Hospital accepts no responsibility if the information is made available to any other person, INCLUDING THE PATIENT. Interpretation Summary * Name: NAFISA ALANIS Study Date: 09/25/2016 08:58 AM BP: 118/74 mmHg * Patient Location: .[facility]\S\N280\S\2 HR: 53 * : 1945 (M/d/yyy) Gender: Female Height: 66 in * Age: 71 yrs Ethnicity: [place] Weight: 182 lb * Ordering Physician: aHwk Ruiz * Referring Physician: Self, Referred * Performed By: Alessia Perez RCS * * Reason For Study: CHEST PAIN * BSA: 1.9 m2 * The study was technically adequate. * Compared to prior study, there is no significant change. * -- Conclusions -- * Left ventricular systolic function is normal. * Ejection Fraction = 65-70%. * There is mild concentric left ventricular hypertrophy. * Diastolic dysfunction, Grade II (pseudonormalization pattern). * There is mild tricuspid regurgitation. Procedure Details * A complete two-dimensional transthoracic echocardiogram was performed (2D, M-mode, Doppler and color flow Doppler). Left Ventricle * The left ventricle is normal in size. * There is no thrombus. * There is mild concentric left ventricular hypertrophy. * Ejection Fraction = 65-70%. * Left ventricular systolic function is normal. * The left ventricular wall motion is normal. Right Ventricle * The right ventricular cavity size is normal (basal dimension <4.2 cm in right ventricular apical 4-chamber view). * The right ventricular systolic function is normal as assessed by tricuspid annular plane systolic excursion (TAPSE) (normal >1.5 cm). Atria * The left atrium is mildly dilated. * Right atrial size is normal. * There is no evidence of atrial septal defect, but resolution does not allow assessment for a patent foramen ovale. Mitral Valve * The mitral valve anatomy is normal. * There is no mitral valve stenosis. * Significant mitral regurgitation is absent. Tricuspid Valve * The tricuspid valve anatomy is normal. * There is no tricuspid stenosis. * There is mild tricuspid regurgitation. * Doppler findings do not suggest pulmonary hypertension. Aortic Valve * The aortic valve is trileaflet. * Aortic valve sclerosis mild, without significant aortic valvular stenosis. * There is no significant aortic regurgitation. Pulmonic Valve * The pulmonary valve is inadequately visualized, but the Doppler data is adequate for interpretation. * There is no pulmonic valvular stenosis. * Mild pulmonic valvular regurgitation. Great Vessels * The aortic root is normal size. Pericardium/Pleural * There is no pericardial effusion. Left Ventricular Diastolic Function * Diastolic dysfunction, Grade II (pseudonormalization pattern). MMode 2D Measurements and Calculations IVSd 1.3 cm IVSs 1.4 cm LVIDd 3.8 cm LVIDs 2.9 cm LVPWd 1.2 cm LVPWs 1.5 cm IVS/LVPW 1.1 FS 25.2 % EDV(Teich) 63.3 ml ESV(Teich) 31.4 ml EF(Teich) 50.4 % EDV(cubed) 56.3 ml ESV(cubed) 23.6 ml EF(cubed) 58.1 % % IVS thick 7.2 % % LVPW thick 27.4 % LV mass(C)d 161.0 grams LV mass(C)dI 83.8 grams/m\S\2 LV mass(C)s 138.3 grams LV mass(C)sI 72.0 grams/m\S\2 SV(Teich) 31.9 ml SI(Teich) 16.6 ml/m\S\2 SV(cubed) 32.7 ml SI(cubed) 17.0 ml/m\S\2 Ao root diam 3.4 cm Ao root area 9.2 cm\S\2 ACS 2.0 cm LA dimension 3.2 cm LA/Ao 0.95 LVOT diam 2.0 cm LVOT area 3.1 cm\S\2 LVAd ap4 29.9 cm\S\2 LVLd ap4 7.8 cm EDV(MOD-sp4) 92.5 ml EDV(sp4-el) 97.9 ml LVAs ap4 18.5 cm\S\2 LVLs ap4 6.2 cm ESV(MOD-sp4) 46.8 ml ESV(sp4-el) 46.9 ml EF(MOD-sp4) 49.4 % EF(sp4-el) 52.1 % LVAd ap2 25.5 cm\S\2 LVLd ap2 6.7 cm EDV(MOD-sp2) 79.8 ml EDV(sp2-el) 82.0 ml LVAs ap2 16.9 cm\S\2 LVLs ap2 6.2 cm ESV(MOD-sp2) 38.2 ml ESV(sp2-el) 39.0 ml EF(MOD-sp2) 52.1 % EF(sp2-el) 52.5 % LVLd %diff -15.02 % EDV(MOD-bp) 90.7 ml LVLs %diff 0.71 % ESV(MOD-bp) 42.2 ml EF(MOD-bp) 53.5 % SV(MOD-sp4) 45.7 ml SI(MOD-sp4) 23.8 ml/m\S\2 SV(MOD-sp2) 41.6 ml SI(MOD-sp2) 21.6 ml/m\S\2 SV(MOD-bp) 48.5 ml SI(MOD-bp) 25.3 ml/m\S\2 SV(sp4-el) 51.0 ml SI(sp4-el) 26.6 ml/m\S\2 SV(sp2-el) 43.0 ml SI(sp2-el) 22.4 ml/m\S\2 Doppler Measurements and Calculations MV E max dale 71.2 cm/sec MV A max dale 39.9 cm/sec MV E/A 1.8 MV P1/2t max dale 105.3 cm/sec MV P1/2t 61.0 msec MVA(P1/2t) 3.6 cm\S\2 MV dec slope 505.2 cm/sec\S\2 MV dec time 0.33 sec Ao V2 max 118.1 cm/sec Ao max PG 5.6 mmHg Ao max PG (full) 1.4 mmHg GENE(V,A) 2.7 cm\S\2 GENE(V,D) 2.7 cm\S\2 LV V1 max PG 4.2 mmHg LV V1 max 102.3 cm/sec PA V2 max 111.8 cm/sec PA max PG 5.0 mmHg PI max dale 198.9 cm/sec PI max PG 15.8 mmHg PI dec slope 205.1 cm/sec\S\2 PI P1/2t 284.1 msec TR max dale 235.5 cm/sec
[2016-09-25] MEDS: CARVEDILOL 6.25 MG TAB PO SCH (18:25)
[2016-09-25] MEDS ORDERED: PANTOprazole SOD 40 MG TAB PO SCH (21:00)
[2016-09-25] MEDS ORDERED: CLONAZEPAM 1 MG TAB PO SCH (21:00)
[2016-09-25] MEDS ORDERED: RIVAROXABAN 10 MG TAB PO SCH (21:00)
[2016-09-26 00:01] VITALS: O2SAT 94
[2016-09-26 04:00] VITALS: O2SAT 94
[2016-09-26 04:27] VITALS: BP 169/81; PULSE 63; TEMP 36.8; O2SAT 94
[2016-09-26 07:15] VITALS: BP 158/80; PULSE 60; TEMP 36.4; O2SAT 95
[2016-09-26 07:43] LABS: BUN/CREATININE RATIO 21.8 (10-20); CALCIUM 8.9 mg/dl (8.5-10.1); CREATININE 0.79 mg/dl (0.60-1.20); POTASSIUM 3.8 mmol/L (3.5-5.1)
[2016-09-26] MEDS: LOSARTAN POTASSIUM 25 MG TAB PO SCH (07:55)
[2016-09-26] MEDS: FLECAINIDE ACETATE 100 MG TAB PO SCH (07:55)
[2016-09-26] MEDS: CARVEDILOL 6.25 MG TAB PO SCH (07:55)
[2016-09-26] MEDS: HYDROCHLOROTHIAZIDE 50 MG TAB PO SCH (07:55)
[2016-09-26 08:00] VITALS: O2SAT 95
[2016-09-26] MEDS ORDERED: CARVEDILOL 6.25 MG TAB PO STA (10:51)
--- NOTE | 2016-09-26 11:02 | Cardiology Follow-Up ---
Subjective General Date of Service: Sep 26, 2016. Pt evaluation today including: conversation w/ patient, conversation w/ family , physical exam, chart review, lab review, review of studies, review of inpatient medication list History of Present Illness The patient is a 71 year old female seen and examined. Reports fatigue today. No CP, CLAROS, or SOB. Denies focal weakness. Complains of having a 'raspy' voice. Offers no other complaints. 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, took pt off this medication Morphine (Verified Adverse Reaction, Unknown, ADVERSE EFFECTS OF BLOOD PRESSURE, 09/24/16) Social History Smoking Status: Never Smoker Hx Tobacco Use In Past Year?: No Hx Alcohol Use - Type And Amou: Yes (WINE-A GLASS ON A RARE OCCASION) Hx Substance Use - Type And Am: No Problem List Medical Problems: (1) Anticoagulant long-term use Status: Acute (2) Concussion Status: Acute (3) Hypertensive urgency Status: Acute (4) Hypertensive urgency Status: Acute (5) Left sided chest pain Status: Acute (6) Poorly-controlled hypertension Status: Acute Review of Systems Respiratory: No cough, No dyspnea at rest, No dyspnea on exertion, No hemoptysis, No shortness of breath, No sputum, No wheezing Cardiac: No PND, No chest pain, No claudication, No edema, No orthopnea, No palpitations Physical Exam Vital Signs Last Vital Signs Documentation Date Time Temp Pulse Resp B/P Pulse Ox O2 Delivery O2 Flow Rate FiO2 09/26/16 08:00 95 Room Air 09/26/16 07:15 36.4 60 18 158/80 Physical Exam Constitutional: General Apperance: overweight Level of Distress: NAD Ambulation: ambulating normally Head: normocephalic, atraumatic ENMT: pertinent finding (left sided subconjunctial hemorrhage) Neck: supple, trachea midline Lungs: Auscultation: breath sounds normal, no wheezing, no rales/crackles, no rhonchi Cardiovascular: Heart Auscultation: RRR, normal S1, normal S2, no murmurs Peripheral Pulses: Carotid Pulse: normal on the left, normal on the right Abdomen: Bowel Sounds: normal Inspection & Palpation: soft, non-distended, no tenderness, guarding & rebound Musculoskeletal: normal, normal strength (5/5 throughout) Extremities: no cyanosis, no edema, no clubbing, no ulcers Neurologic: Gait & Station: pertinent finding (No focal neurologic deficit) Cranial Nerves: grossly intact Assessment and Plan Assessment and Plan FINAL IMPRESSIONS: 1. Hypertensive urgency - resolved - BP improved with transition to carvedilol 2. Paroxysmal atrial fibrillation, currently sinus rhythm on chronic flecainide therapy. Chronically anticoagulated with Xarelto. 3. Atypical chest discomfort - resolved 4. Transient headache related to #1. 5. History of paroxysmal supraventricular tachycardia -- no recurrence. 6. History of rjwjxtezxla-bfiahlrnhm-vvxaqv inhibitor induced cough, tolerating angiotensin-receptor alejandro. PLAN AND RECOMMENDATIONS: Increase carvedilol to 12.5mg BID. Give additional 6.25mg x1 this AM. Continue losartan and HCTZ as previously ordered. No further cardiac testing at this time. Patient will be discharged to follow up with her PCP. She will follow up with Dr. Zambrano as outpatient as well. Laboratory Results Last 24 Hours Test 09/26/16 06:50 Sodium Level 138 mmol/L Potassium Level 3.8 mmol/L Chloride Level 101 mmol/L Carbon Dioxide Level 29 mmol/L Anion Gap 8.0 mmol/L Blood Urea Nitrogen 17 mg/dl Creatinine 0.79 mg/dl Est Creatinine Clear Calc Drug Dose 68.1 ml/min Estimated GFR () 86.1 Estimated GFR (Non- 74.3 BUN/Creatinine Ratio 21.8 Random Glucose 95 mg/dl Calcium Level 8.9 mg/dl
--- NOTE | 2016-09-26 11:51 | Progress Note ---
Internal Med Progress Note Date of Service: Sep 26, 2016. Provider Documentation: SUBJECTIVE: The patient was seen and examined Feels a lot better today BP is improving Denies any chest pain,palpitation ,sob Ambulating well Ready to go home OBJECTIVE: Vital Signs-as noted below Exam: General-no distress at rest Eyes-normal ENT-normal Neck-Supple Lungs-clear to ausucltate bilaterally Heart-Regular,no murmur appreciated Abdomen-Benign,no masses,bowel sound present Extremities-No edema Neuro-AAox3 Lab data as noted below. ASSESSMENT & PLAN: Hypertensive Urgency Seems to have labile HTN Symptoms are suggestive from High BP Appreciate Cardiology input Has been on Coreg,HCTZ and ACEI Medications titrated and BP is improving Blood pressure is well controlled with increasing dose of medication Chest pain likely secondary to hypertensive urgency Serial Hipolito negative Await ECHO- * Left ventricular systolic function is normal. * Ejection Fraction = 65-70%. * There is mild concentric left ventricular hypertrophy. * Diastolic dysfunction, Grade II (pseudonormalization pattern). * There is mild tricuspid regurgitation. Paroxysmal atrial fibrillation, px NSR on Xarelto. No acute issue DVT prophylaxis, Xarelto. Full code. DISPOSITION Discharge home today Vital Signs: Date Time Temp Pulse Resp B/P Pulse Ox O2 Delivery O2 Flow Rate FiO2 09/26/16 08:00 95 Room Air 09/26/16 07:15 36.4 60 18 158/80 95 Room Air 09/26/16 04:27 36.8 63 20 169/81 94 Room Air 09/26/16 04:00 94 Room Air 09/26/16 04:00 Room Air 09/26/16 00:01 94 Room Air 09/25/16 23:09 36.4 61 16 153/74 97 Room Air 09/25/16 20:37 177/93 09/25/16 20:00 94 Room Air 09/25/16 18:25 199/80 09/25/16 16:00 94 Room Air 09/25/16 14:27 36.4 56 16 137/81 94 Room Air Lab Results: Results Past 24 Hours Test 09/26/16 06:50 Range/Units Sodium Level 138 136-145 mmol/L Potassium Level 3.8 3.5-5.1 mmol/L Chloride Level 101 98-107 mmol/L Carbon Dioxide Level 29 21-32 mmol/L Anion Gap 8.0 3-11 mmol/L Blood Urea Nitrogen 17 7-18 mg/dl Creatinine 0.79 0.60-1.20 mg/dl Est Creatinine Clear Calc Drug Dose 68.1 ml/min Estimated GFR () 86.1 Estimated GFR (Non- 74.3 BUN/Creatinine Ratio 21.8 10-20 Random Glucose 95 70-99 mg/dl Calcium Level 8.9 8.5-10.1 mg/dl
[2016-09-26] MEDS ORDERED: CZR25 PO (13:18)
[2016-09-26] MEDS ORDERED: CRG125 PO (13:18)
--- NOTE | 2016-09-26 13:20 | Discharge Instructions ---
Discharge Instructions Date of Service Sep 26, 2016. Admission Reason for Admission: Chest Pain Discharge Discharge Diagnosis / Problem: Hypertensive Urgency,Chest pain Discharge Goals Goal(s): Prevent Disease Progression Activity Recommendations Activity Limitations: resume your previous activity . Instructions / Follow-Up Instructions / Follow-Up Dr Pathak on 10/01/16 at 11:20AM Current Hospital Diet Patient's current hospital diet: AHA Diet (Heart Healthy) Discharge Diet Recommended Diet: AHA Diet (Heart Healthy), Low Sodium Diet (2gm Na) Pending Studies Studies pending at discharge: no Medical Emergencies . Who to Call and When: Medical Emergencies: If at any time you feel your situation is an emergency, please call 911 immediately. . Non-Emergent Contact Non-Emergency issues call your: Primary Care Provider . Past History Medical & Surgical History: (1) History of atrial fibrillation (2) Hypertension (3) AF (atrial fibrillation) (4) Chest pain (5) Hypertensive urgency . "Provider Documentation" section prepared by Giuliana Duron. VTE Core Measure Inpt VTE Proph given/why not?: Other Anticoagulation (Xarelto)
[2016-09-26 13:25] VITALS: BP 158/80; PULSE 60; TEMP 36.4; O2SAT 95
--- NOTE | 2016-09-26 17:57 | Discharge Summary ---
Discharge Summary Date of Service Sep 26, 2016. Discharge Summary Admission Date: Sep 24, 2016 at 23:08 Discharge Date: Sep 26, 2016 Discharge Disposition: Home Principal Diagnosis: Hypertensive Urgency,Chest pain Secondary Diagnoses/Problems: Please see H&P and Hospital Progress note Consultations: Cardiology Medication Reconciliation New Medications: Carvedilol (Carvedilol) 12.5 Mg Tab 12.5 MG PO BID for 30 Days, #60 TAB Losartan Potassium (Losartan Potassium) 25 Mg Tab 25 MG PO QAM for 30 Days, #30 TAB Continued Medications: Calcium Carbonate (Calcium) 600 Mg Tab 600 MG PO DAILY Cholecalciferol (Vitamin D) 2,000 Unit Cap 2000 UNIT PO DAILY Clonazepam (Klonopin) 1 Mg Tab 1 MG PO HS, #50 RESTLESS LEG Clonidine Hcl (Catapres) 0.1 Mg Tab 0.1 MG PO BID PRN for blood pressure, #60 TAKES NEEDED FOR BLOOD PRESSUE Flecainide Acetate (Flecainide Acetate) 150 Mg Tab 150 MG PO BID, #60 Hydrochlorothiazide (Hydrochlorothiazide) 50 Mg Tab 50 MG PO DAILY, #30 Magnesium Oxide (Mag-Ox) 400 Mg Tab 800 MG PO QAM, TAB Pantoprazole (Pantoprazole Sodium) 40 Mg Tab 40 MG PO QPM, #60 Rivaroxaban (Xarelto) 20 Mg Tab 20 MG PO QPM, #30 with supper Discontinued Medications: Metoprolol Tartrate (Lopressor) (Lopressor) 25 Mg Tab 25 MG PO BID, #60 Admission Information HPI (per Admitting provider): DATE OF ADMISSION: 09/24/2016 PRIMARY CARE DOCTOR: Dr. Pathak Hx obtained from px and records. CHIEF COMPLAINT: Chest pain. HISTORY OF PRESENT ILLNESS: Medical history is significant for PA-Fib on Xarelto, hypertension, arthritis and PSVT as per records. Recent confinement in October 2014 for knee surgery. In the last few weeks, patient's blood pressure was noted to be high - SBP as high as 230s at home sometimes. She would feel tired, short of breath with palpitations. No unusual stress but px's daughter feels patient is tired out by out of town travels. Patient admits to some fluid retention. Hands little swollen. Rings feel "tight'" Denies dietary indiscretion. Denies NSAID intake. She was seen at the Emergency Room a few weeks ago. She was seen by her PCP a few weeks ago. Losartan was added to her regimen. Clonidine was prescribed for SBP > 160. SBP down to 90s w one dose of Losartan as per px. PX felt that her throat would close off w/ one dose Clonidine. Patient was in touch with her commercial lines manager as well. Scheduled a followup in 2 weeks. Tonight she had left-sided chest pain like gas, no fever, no chills. SBP noted to be in the 210s. Patient was given labetalol in the Emergency Room. Currently, blood pressure was noted to be in the 150s. PX currently comfortable. MEDICAL HISTORY: As above. 2D Echo March 2015 LVH, normal systolic function. SURGERIES: She has had knee surgery. HOME MEDICATIONS: Include; magnesium oxide, Lopressor, Protonix, Xarelto and flecainide ALLERGIES: TO LISINOPRIL AND PREDNISONE. FAMILY HISTORY: Heart disease. PERSONAL AND SOCIAL HISTORY: Nonsmoker. No chronic intake of alcoholic beverages. 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 REVIEW OF SYSTEMS: As per HPI. all other ROS negative PHYSICAL EXAMINATION: VITAL SIGNS: Blood pressure was noted to be 210/86 later 150/70 pulse rate 60, RR 20 temp 36.3, sats 97 on room air. GENERAL: Noted to be comfortable, slightly overweight. no respiratory distress, slightly anxious. SKIN: Normal color. HEENT: Sehili palpebral conjunctivae. Dry mucosa. NECK: Short neck. LUNGS: Decreased breath sounds. HEART: Regular rate and rhythm. ABDOMEN: Soft and nontender. EXTREMITIES: No LE edema, no tenderness. NEUROLOGIC: No gross focality. LABORATORIES: Hemoglobin was noted to be 14.7, hematocrit 40, white cell count 6.6, platelets 266. Sodium 140, K 3.7, chloride 96, CO2 30, BUN 18, creatinine 0.93, glucose 100 trop 0 Chest x-ray; cardiomegaly, interstitial thickening. EKG; rate 60, normal sinus rhythm, no ischemia. ASSESSMENT: 1. Chest pain likely secondary to hypertensive urgency unclear precipitant. 2. Paroxysmal atrial fibrillation, px NSR on Xarelto. PLAN: Observation PCU. Monitor BP response to addition of Losartan to regimen 2D echo. Cardio consult RE, chest pain, HTN (Patient known to Dr. Zambrano) Further management as per [facility] cardiology. DVT prophylaxis, Xarelto. Full code. Hospital Course Hypertensive Urgency Seems to have labile HTN Symptoms are suggestive from High BP Appreciate Cardiology input Has been on Coreg,HCTZ and ACEI Medications titrated and BP is improving Blood pressure is well controlled with increasing dose of medication Chest pain likely secondary to hypertensive urgency Serial Hipolito negative Await ECHO- * Left ventricular systolic function is normal. * Ejection Fraction = 65-70%. * There is mild concentric left ventricular hypertrophy. * Diastolic dysfunction, Grade II (pseudonormalization pattern). * There is mild tricuspid regurgitation. Paroxysmal atrial fibrillation, px NSR on Xarelto. No acute issue DVT prophylaxis, Xarelto. Full code. DISPOSITION Discharge home today Total time spent on discharge = 35 minutes This includes examination of the patient, discharge planning, medication reconciliation, and communication with other providers. Discharge Instructions Date of Service Sep 26, 2016. Admission Reason for Admission: Chest Pain Discharge Discharge Diagnosis / Problem: Hypertensive Urgency,Chest pain Discharge Goals Goal(s): Prevent Disease Progression Activity Recommendations Activity Limitations: resume your previous activity . Instructions / Follow-Up Instructions / Follow-Up Dr Pathak on 10/01/16 at 11:20AM Current Hospital Diet Patient's current hospital diet: AHA Diet (Heart Healthy) Discharge Diet Recommended Diet: AHA Diet (Heart Healthy), Low Sodium Diet (2gm Na) Pending Studies Studies pending at discharge: no Medical Emergencies . Who to Call and When: Medical Emergencies: If at any time you feel your situation is an emergency, please call 911 immediately. . Non-Emergent Contact Non-Emergency issues call your: Primary Care Provider . Past History Medical & Surgical History: (1) History of atrial fibrillation (2) Hypertension (3) AF (atrial fibrillation) (4) Chest pain (5) Hypertensive urgency . "Provider Documentation" section prepared by Giuliana Duron. VTE Core Measure Inpt VTE Proph given/why not?: Other Anticoagulation (Xarelto) <Electronically signed by Giuliana Duron M.D.> Additional Copies To Tessie Pathak,DO
[2016-09-26] MEDS ORDERED: CARVEDILOL 12.5 MG TAB PO SCH (21:00)
[2017-02-26] MEDS ORDERED: HYDR-2977 PO (17:51)
== END 2016-09-26 13:46 | disposition home or self-care (01) ==
LOC: ENRESERVDT → ENRESERVTM → C.EDB 20:27 → C.MED 23:08
PROVIDERS: ADMIT Internal Medicine; ATTEND Internal Medicine
DX: I16.0 Hypertensive urgency (principal); R07.9 Chest pain, unspecified; I48.0 Paroxysmal atrial fibrillation; K21.9 Gastro-esophageal reflux disease without esophagitis; Z88.5 Allergy status to narcotic agent; Z88.8 Allergy status to other drugs, medicaments and biological substances; Z79.01 Long term (current) use of anticoagulants; Z82.49 Family history of ischemic heart disease and other diseases of the circulatory system; M19.90 Unspecified osteoarthritis, unspecified site

== ENCOUNTER → 2016-10-29 | Outpatient (CLI) | payer OTHER, MEDICARE ==
[~2016-10-29] MED LIST changes: +CHOL1000 PO; +CRG125 PO; +CTP1CL PO; +CZR25 PO; +CZR50 PO; +HYDR-2977 PO; -METO25TA56 PO; +ZNTT/150 PO
--- NOTE | 2016-10-29 14:26 | MAMMOGRAPHY REPORT ---
BILATERAL DIGITAL SCREENING MAMMOGRAM WITH CAD: 10/29/2016 CLINICAL HISTORY: Routine screening. Patient has no complaints. TECHNIQUE: Bilateral CC and MLO views were obtained. Current study was also evaluated with a Comput er Aided Detection (CAD) system. COMPARISON: Comparison is made to exams dated: 10/06/2015 mammogram, 10/04/2014 mammogram, 08/28/2013 m ammogram, 07/29/2012 mammogram, 07/09/2011 mammogram, and 07/07/2010 mammogram - [facility] enter. BREAST COMPOSITION: There are scattered areas of fibroglandular density in both breasts. FINDINGS: There are benign-appearing calcifications, stable in each breast. No new suspicious mass, architectural distortion or cluster of microcalcifications is seen. IMPRESSION: ACR BI-RADS CATEGORY 1: NEGATIVE There is no mammographic evidence of malignancy. A 1 year screening mammogram is recommended. The p atient will receive written notification of the results. Approximately 10% of breast cancers are not detected with mammography. A negative mammographic repor t should not delay biopsy if a clinically suggestive mass is present. Ramya Resendez M.D. ay/:10/29/2016 13:51:21 Orientor: Marlin PIMENTEL(Yadiel)(M), [facility] letter sent: Normal 1/2 BI-RADS Code: ACR BI-RADS Category 1: Negative
== END | disposition home or self-care (01) ==
LOC: C.MAMM 11:26
PROVIDERS: ATTEND Family Medicine
DX: Z12.31 Encounter for screening mammogram for malignant neoplasm of breast (principal)

== ENCOUNTER 2017-02-26 16:20 | Observation (INO) | payer OTHER, MEDICARE ==
[~2017-02-26] VITALS: Ht 167.6 cm; Wt 80.4 kg
[~2017-02-26 16:20] MED LIST changes: -CHOL1000 PO; -CZR50 PO; -HYDR-2977 PO; -PANT40TA2 PO; +PRT/40 PO; -ZNTT/150 PO
[2017-02-26] MEDS ORDERED: HydrALAZINE HCL 20 MG/ML VIAL IV. STA ×2 (16:37→17:55)
--- NOTE | 2017-02-26 16:42 | EMERGENCY ROOM VISIT NOTE ---
History Report prepared by Carlin: Dixon Hale Under the Supervision of: Dr. Brian Ross M.D. First contact with patient: 16:29 Chief Complaint: NEURO SYMPTOMS Stated Complaint: NUMBNESS IN LEFT SIDE, FACE AND LEG PAIN Nursing Triage Summary: Pt reports numbness on left side of face, tingling in left arm, tightness in left leg, h/a, fatigue, pressure under left eye. Sx intermittently x 3 days. Denies problems with vision or speech. Hx of a.fib. "This morning it felt like I went into a. fib." History of Present Illness The patient is a 72 year old female who presents to the Emergency Room with complaints of constant tingling in her left side beginning three days ago. The patient states that her left arm, leg, and face have been tingling for the last three days. She reports that she also has had generalized weakness, but her left leg is more weak than her right leg. The patient notes that she cannot walk up a hill without becoming weak. She states that the veins in her left legs have felt achy. The patient reports that she has also developed slight numbness in the front of her head. She notes that since yesterday, her left lower quadriceps have felt tight. The patient states that she has a history or paroxysmal atrial fibrillation. She reports that she thinks she was in atrial fibrillation this morning, but she has not been in it over the past three days. The patient notes that she is on Xarelto. She states that she has a history of hypertension, but she has not been admitted for it. The patient reports that she is on medication for it, but she does not remember what it is. She denies changes in appetite, changes in fluid consumption, nausea, diarrhea, GI bug, abdominal pain, back pain, slurred speech, and facial droop. The patient also denies falling, head injuries, alcohol use, drug use, taking aspirin, and a history of a CVA or [place]. Source of History: patient Onset: three days ago Position: other (left-sided) Quality: other (tingling) Timing: constant Associated Symptoms: + weakness (globalized, more on the left), + numbness ( front of head), No nausea, No vomiting, No abdominal pain, No back pain Note: Associated symptoms: achy veins, muscle tightness Denies: changes in appetite, changes in fluid consumption, GI bug, slurred speech, and facial droop Review of Systems See HPI for pertinent positives & negatives. A total of 10 systems reviewed and were otherwise negative. Past Medical & Surgical Medical Problems: (1) AF (atrial fibrillation) (2) GERD (gastroesophageal reflux disease) (3) HTN (hypertension) (4) Migraine (5) Restless Legs Syndrome Surgical Problems: (1) S/P TKR (total knee replacement) Family History Cancer FH: heart disease Stroke Social History Smoking Status: Never Smoker Marital Status: Housing Status: lives with significant other Occupation Status: retired Current/Historical Medications Scheduled Calcium Carbonate (Calcium), 1,200 MG PO DAILY Carvedilol (Carvedilol), 12.5 MG PO BID Cholecalciferol (Vitamin D3), 1 TAB PO DAILY Flecainide Acetate (Flecainide Acetate), 150 MG PO BID Hydralazine HCl (Hydralazine HCl), 10 MG PO BID Hydrochlorothiazide (Hydrochlorothiazide), 50 MG PO DAILY Losartan Potassium (Losartan Potassium), 50 MG PO BID Magnesium Oxide (Mag-Ox), 400 MG PO QAM Ranitidine (Zantac), 150 MG PO DAILY Rivaroxaban (Xarelto), 20 MG PO QPM Scheduled PRN Clonazepam (Klonopin), 1 MG PO HS PRN for restless legs Allergies Coded Allergies: Oxycodone (Verified Allergy, Unknown, adverse effects on blood pressure, ) Clonidine Derivatives (Verified Adverse Reaction, Intermediate, 0, 02/26/17) throat closing Prednisone (Verified Adverse Reaction, Intermediate, WEAKNESS, 02/26/17) Lisinopril (Verified Adverse Reaction, Unknown, cough, 02/26/17) 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 HEENT: No acute trauma, normocephalic atraumatic, mucous membranes moist, no nasal congestion, no scleral icterus. NECK: No stridor, no adenopathy, no meningismus, trachea is midline. LUNGS: No dyspnea. Clear to auscultation and equal bilaterally. No wheeze, no rhonchi. HEART: Regular rate and rhythm. No murmurs, rubs, gallops appreciated. ABDOMEN: Soft, nontender, bowel sounds positive, no masses appreciated, no peritonitis. BACK: No midline tenderness, no CVA tenderness EXTREMITIES: Normal motion all extremities, no cyanosis, no edema. NEUROLOGIC: Alert and oriented, no acute motor or sensory deficits, no focal weakness, cranial nerves grossly intact. SKIN: No rash, no jaundice, no diaphoresis. Medical Decision & Procedures ER Provider Diagnostic Interpretation: Radiology results and stated below per my review and radiologist interpretation: HEAD WITHOUT CONTRAST (CT) CLINICAL HISTORY: 72 years-old Female with Generalized Weakness. Acute generalized weakness. Initial exam. TECHNIQUE: Multiple axial CT images of the head were obtained without contrast. A dose lowering technique was utilized adhering to the principles of ALARA. CT DOSE: 537.48 mGy.cm COMPARISON: CT head 09/05/2016. FINDINGS: No acute intracranial hemorrhage, midline shift, mass, large territorial ischemia, hydrocephalus or abnormal extra-axial collection. There is mild atrophy with a degree of ex vacuo ventriculomegaly. The calvarium is intact. The paranasal sinuses, mastoid air cells, and middle ear cavities are clear. IMPRESSION: No acute intracranial abnormality. The above report was generated using voice recognition software. It may contain grammatical, syntax or spelling errors. Electronically signed by: Brandon Clinton M.D. 02/26/2017 5:29 PM Dictated Date/Time: 02/26/2017 5:27 PM CHEST ONE VIEW PORTABLE CLINICAL HISTORY: Generalized Weakness dyspnea COMPARISON STUDY: 09/24/2016 FINDINGS: Mild stable cardiomegaly. Lungs remain clear. Slight chronic interstitial change. IMPRESSION: Mild stable cardiomegaly. Otherwise negative study. No acute process. The above report was generated using voice recognition software. It may contain grammatical, syntax or spelling errors. Electronically signed by: Jose R Sweet M.D. 02/26/2017 4:50 PM Dictated Date/Time: 02/26/2017 4:49 PM Laboratory Results 02/26/17 17:30 Red Blood Count 4.68, Mean Corpuscular Volume 89.1, Mean Corpuscular Hemoglobin 30.3, Mean Corpuscular Hemoglobin Concent 34.1, Mean Platelet Volume 9.8, Neutrophils (%) (Auto) 52.7, Lymphocytes (%) (Auto) 29.7, Monocytes (%) (Auto) 13.8, Eosinophils (%) (Auto) 3.0, Basophils (%) (Auto) 0.5, Neutrophils # (Auto ) 3.18, Lymphocytes # (Auto) 1.79, Monocytes # (Auto) 0.83, Eosinophils # (Auto ) 0.18, Basophils # (Auto) 0.03 02/26/17 17:30 Test 02/26/17 17:30 White Blood Count 6.03 K/uL (4.8-10.8) Red Blood Count 4.68 M/uL (4.2-5.4) Hemoglobin 14.2 g/dL (12.0-16.0) Hematocrit 41.7 % (37-47) Mean Corpuscular Volume 89.1 fL (80-100) Mean Corpuscular Hemoglobin 30.3 pg (25-34) Mean Corpuscular Hemoglobin Concent 34.1 g/dl (32-36) Platelet Count 306 K/uL (130-400) Mean Platelet Volume 9.8 fL (7.4-10.4) Neutrophils (%) (Auto) 52.7 % Lymphocytes (%) (Auto) 29.7 % Monocytes (%) (Auto) 13.8 % Eosinophils (%) (Auto) 3.0 % Basophils (%) (Auto) 0.5 % Neutrophils # (Auto) 3.18 K/uL (1.4-6.5) Lymphocytes # (Auto) 1.79 K/uL (1.2-3.4) Monocytes # (Auto) 0.83 K/uL (0.11-0.59) Eosinophils # (Auto) 0.18 K/uL (0-0.5) Basophils # (Auto) 0.03 K/uL (0-0.2) RDW Standard Deviation 38.0 fL (36.4-46.3) RDW Coefficient of Variation 11.9 % (11.5-14.5) Immature Granulocyte % (Auto) 0.3 % Immature Granulocyte # (Auto) 0.02 K/uL (0.00-0.02) Prothrombin Time 11.1 SECONDS (9.0-12.0) Prothromb Time International Ratio 1.0 (0.9-1.1) Activated Partial Thromboplast Time 30.8 SECONDS (21.0-31.0) Partial Thromboplastin Ratio 1.2 Anion Gap 7.0 mmol/L (3-11) Est Creatinine Clear Calc Drug Dose 67.8 ml/min Estimated GFR () 86.8 Estimated GFR (Non- 74.9 BUN/Creatinine Ratio 26.5 (10-20) Calcium Level 9.3 mg/dl (8.5-10.1) Magnesium Level 1.8 mg/dl (1.8-2.4) Troponin I < 0.015 ng/ml (0-0.045) Laboratory results as reviewed by me. Medications Administered Medications (Trade) Dose Ordered Sig/Rebecca Route Start Time Stop Time Status Last Admin Dose Admin Hydralazine HCl (HydrALAZINE INJ) 10 mg NOW STAT IV. 02/26/17 16:37 02/26/17 16:38 DC 02/26/17 17:11 10 MG Hydralazine HCl (HydrALAZINE INJ) 10 mg NOW STAT IV. 02/26/17 17:55 02/26/17 17:56 DC 02/26/17 18:00 10 MG Acetaminophen (Tylenol Tab) 650 mg Q6H PRN PO 02/26/17 19:00 03/28/17 18:59 02/26/17 19:34 650 MG ECG Indication: weakness Rate (beats per minute): 62 Rhythm: sinus rhythm Findings: 1st degree AV block, no acute ischemic change, no ectopy ED Course 1634: The patient was evaluated in room A03. A complete history and physical exam was performed. 1637: Ordered Hydralazine HCl 10mg IV 1755: Ordered Hydralazine HCl 10mg IV 1800: Upon reevaluation, the patient is feeling a resolution of symptoms and feeling better. Her blood pressure was 184/116. 1824: I reevaluated the patient, and she has no symptoms present. Discussed results and treatment plan with the patient. She verbalized understanding and agreement with the treatment plan. The patient will be evaluated for further management. 1829: I discussed the patient's case with IGNACIO Romoist. She will evaluated the patient for further treatment. Medical Decision Differential: Sepsis, Infectious (UTI/Pneumonia/Meningitis/etc), Metabolic/ Electrolyte Abnormality, Cardiac, Hepatic, Endocrine, Toxicologic, Neurologic, amongst other pathologies entertained. 72 yr old female arrives for evaluation of left sided paresthesias with perceived weakness. No neuro deficits on examination and ongoing for last 3 days thus not stroke alert nor TPA candidate. BP is very highly elevated though after 2 round Hydralazine BP much improved and symptoms have resolved. On Xarelto thus I feel it unlikely this is stroke and more likely hypertensive emergency, however will need to come in for further work-up of TIA like symptoms. EKG looks OK and not currently in AFib. Labs otherwise look good. She is feeling much better at time of hospitalist consult other than mild headache. Medication Reconcilliation Current Medication List: was personally reviewed by me Blood Pressure Screening Patient's blood pressure: Elevated blood pressure Monitored by hospitalist Consults Time Called: 1822 Consulting Physician: IGNACIO Romoist Returned Call: 1829 I discussed the patient's case with IGNACIO Romoist. She will evaluated the patient for further treatment. Impression Primary Impression: Hypertensive emergency Scribe Attestation The scribe's documentation has been prepared under my direction and personally reviewed by me in its entirety. I confirm that the note above accurately reflects all work, treatment, procedures, and medical decision making performed by me. Departure Information Dispostion Being Evaluated By Hospitalist Referrals Tessie Pathak DO (PCP) Patient Instructions [facility]
--- NOTE | 2017-02-26 16:51 | DIAGNOSTIC IMAGING REPORT ---
CHEST ONE VIEW PORTABLE CLINICAL HISTORY: Generalized Weakness dyspnea COMPARISON STUDY: 09/24/2016 FINDINGS: Mild stable cardiomegaly. Lungs remain clear. Slight chronic interstitial change. IMPRESSION: Mild stable cardiomegaly. Otherwise negative study. No acute process. The above report was generated using voice recognition software. It may contain grammatical, syntax or spelling errors. Electronically signed by: Jose R Sweet M.D. 02/26/2017 4:50 PM Dictated Date/Time: 02/26/2017 4:49 PM
--- NOTE | 2017-02-26 17:30 | DIAGNOSTIC IMAGING REPORT ---
HEAD WITHOUT CONTRAST (CT) CLINICAL HISTORY: 72 years-old Female with Generalized Weakness. Acute generalized weakness. Initial exam. TECHNIQUE: Multiple axial CT images of the head were obtained without contrast. A dose lowering technique was utilized adhering to the principles of ALARA. CT DOSE: 537.48 mGy.cm COMPARISON: CT head 09/05/2016. FINDINGS: No acute intracranial hemorrhage, midline shift, mass, large territorial ischemia, hydrocephalus or abnormal extra-axial collection. There is mild atrophy with a degree of ex vacuo ventriculomegaly. The calvarium is intact. The paranasal sinuses, mastoid air cells, and middle ear cavities are clear. IMPRESSION: No acute intracranial abnormality. The above report was generated using voice recognition software. It may contain grammatical, syntax or spelling errors. Electronically signed by: Brandon Clinton M.D. 02/26/2017 5:29 PM Dictated Date/Time: 02/26/2017 5:27 PM
[2017-02-26 17:47] LABS: BASO % 0.5 %; BASO ABS # 0.03 K/uL (0-0.2); COMPLETE YES; HEMATOCRIT 41.7 % (37-47); IG% 0.3 %; LYMPH % 29.7 %; LYMPH ABS # 1.79 K/uL (1.2-3.4); MEAN CELL VOLUME 89.1 fL (80-100); MEAN CORPUSCULAR HEMOGLOBIN 30.3 pg (25-34); MEAN CORPUSCULAR HGB CONC 34.1 g/dl (32-36); MEAN PLATELET VOLUME 9.8 fL (7.4-10.4); MONO % 13.8 %; NEUT % 52.7 %; PLATELET COUNT 306 K/uL (130-400); RED BLOOD COUNT 4.68 M/uL (4.2-5.4); WHITE BLOOD COUNT 6.03 K/uL (4.8-10.8)
[2017-02-26] MEDS ORDERED: ZNTT/150 PO (17:51)
[2017-02-26] MEDS ORDERED: HYDR-4322 PO (17:51)
[2017-02-26] MEDS ORDERED: CZR50 PO (17:51)
[2017-02-26 17:56] LABS: PARTIAL THROMBOPLASTIN RATIO 1.2; PROTHROMBIN TIME (PATIENT) 11.1 SECONDS (9.0-12.0)
[2017-02-26 18:11] LABS: BLOOD UREA NITROGEN 21 mg/dl (7-18); BUN/CREATININE RATIO 26.5 (10-20); CALCIUM 9.3 mg/dl (8.5-10.1); CARBON DIOXIDE 28 mmol/L (21-32); CHLORIDE 100 mmol/L (98-107); CREATININE 0.78 mg/dl (0.60-1.20); GLUCOSE 91 mg/dl (70-99); MAGNESIUM 1.8 mg/dl (1.8-2.4); POTASSIUM 3.5 mmol/L (3.5-5.1); SODIUM 135 mmol/L (136-145)
[2017-02-26] MEDS ORDERED: ACETAMINOPHEN 325 MG TAB PO PRN (19:00)
[2017-02-26] MEDS ORDERED: ONDANSETRON INJ 2 MG/ML 2 ML VIAL IV PRN (19:15)
[2017-02-26] MEDS ORDERED: CHOL1000 PO (19:20)
[2017-02-26] MEDS ORDERED: PHARMACIST DISCHARGE MED REC CONSULT PRN (19:30)
[2017-02-26] MEDS ORDERED: HydrALAZINE HCL 20 MG/ML VIAL IV. PRN (19:30)
[2017-02-26] MEDS ORDERED: CLONAZEPAM 1 MG TAB PO PRN (19:30)
[2017-02-26] MEDS ORDERED: IV FLUIDS COMPLETED PRN (20:00)
--- NOTE | 2017-02-26 20:11 | History and Physical ---
History & Physical Date & Time of Service: Feb 26, 2017 ~ 18:45 Chief Complaint: Left Facial and Left Arm Numbness Primary Care Physician: Tessie Pathak DO History of Present Illness 72 year old female who presents to the ER with left facial and left arm numbness. Patient reports she has felt generally weak and fatigued the past few days. This morning when she woke up she reports she had a mild frontal headache and suspected she was in atrial fibrillation. She reports that she took her pulse and it was irregular. BP was normal at that time. Later in the day, she developed left arm and left facial numbness. She reports it lasted for about two hours and then she came to the ED for further evaluation. Her BP was found to be significantly high and once it was lowered, symptoms resolved. She denies any unilateral weakness, difficulty speaking, understanding, or swallowing. She denies chest pain, palpitations, and shortness of breath. No abdominal pain, nausea, vomiting, or diarrhea. She denies fever and chills. No urinary symptoms. In the ED, patient's BP was 205/107. She was given Hydralazine 10mg IV x 2 with improvement in BP. Head CT is negative for acute findings. Past Medical/Surgical History Medical Problems: (1) AF (atrial fibrillation) Status: Chronic (2) GERD (gastroesophageal reflux disease) Status: Chronic (3) HTN (hypertension) Status: Chronic (4) Migraine Status: Chronic (5) Restless Legs Syndrome Status: Chronic Surgical Problems: (1) S/P TKR (total knee replacement) Status: Chronic Family History Stroke FATHER Social History Smoking Status: Never Smoker Alcohol Use: occasionally Immunizations History of Influenza Vaccine: Yes Influenza Vaccine Date: Mar 20, 2017 History of Tetanus Vaccine?: Yes Tetanus Immunization Date: Jul 26, 2015 History of Pneumococcal: Yes Pneumococcal Date: Sep 17, 2014 Multi-Drug Resistant Organisms History of MDRO: No Allergies Coded Allergies: Oxycodone (Verified Allergy, Unknown, adverse effects on blood pressure, ) Clonidine Derivatives (Verified Adverse Reaction, Intermediate, 0, 02/26/17) throat closing Prednisone (Verified Adverse Reaction, Intermediate, WEAKNESS, 02/26/17) Lisinopril (Verified Adverse Reaction, Unknown, cough, 02/26/17) 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, took pt off this medication Morphine (Verified Adverse Reaction, Unknown, ADVERSE EFFECTS OF BLOOD PRESSURE, 02/26/17) Home Medications Scheduled Calcium Carbonate (Calcium), 1,200 MG PO DAILY Carvedilol (Carvedilol), 12.5 MG PO BID Cholecalciferol (Vitamin D3), 1 TAB PO DAILY Flecainide Acetate (Flecainide Acetate), 150 MG PO BID Hydralazine HCl (Hydralazine HCl), 10 MG PO BID Hydrochlorothiazide (Hydrochlorothiazide), 50 MG PO DAILY Losartan Potassium (Losartan Potassium), 50 MG PO BID Magnesium Oxide (Mag-Ox), 400 MG PO QAM Ranitidine (Zantac), 150 MG PO DAILY Rivaroxaban (Xarelto), 20 MG PO QPM Scheduled PRN Clonazepam (Klonopin), 1 MG PO HS PRN for restless legs Review of Systems ROS per HPI, all other systems reviewed and negative Physical Exam Vital Signs Date Time Temp Pulse Resp B/P (MAP) Pulse Ox O2 Delivery O2 Flow Rate FiO2 02/26/17 18:26 73 20 140/73 98 Room Air 02/26/17 18:09 70 02/26/17 17:40 64 18 182/116 98 Room Air 02/26/17 16:27 36.6 67 18 205/107 95 Room Air General Appearance: no apparent distress Head: normocephalic, atraumatic Eyes: normal inspection, PERRL, sclerae normal ENT: hearing grossly normal Neck: supple, no JVD Respiratory/Chest: lungs clear, normal breath sounds, no respiratory distress Cardiovascular: regular rate, rhythm, no edema, normal peripheral pulses Abdomen/GI: normal bowel sounds, non tender, soft Extremities/Musculoskelatal: normal inspection, no calf tenderness Neurologic/Psych: no motor/sensory deficits, alert, normal mood/affect, oriented x 3 Skin: normal color, warm/dry Diagnostics Laboratory Results Results Past 24 Hours Test 02/26/17 17:30 02/26/17 19:26 Range/Units White Blood Count 6.03 4.8-10.8 K/uL Red Blood Count 4.68 4.2-5.4 M/uL Hemoglobin 14.2 12.0-16.0 g/dL Hematocrit 41.7 37-47 % Mean Corpuscular Volume 89.1 80-100 fL Mean Corpuscular Hemoglobin 30.3 25-34 pg Mean Corpuscular Hemoglobin Concent 34.1 32-36 g/dl Platelet Count 306 130-400 K/uL Mean Platelet Volume 9.8 7.4-10.4 fL Neutrophils (%) (Auto) 52.7 % Lymphocytes (%) (Auto) 29.7 % Monocytes (%) (Auto) 13.8 % Eosinophils (%) (Auto) 3.0 % Basophils (%) (Auto) 0.5 % Neutrophils # (Auto) 3.18 1.4-6.5 K/uL Lymphocytes # (Auto) 1.79 1.2-3.4 K/uL Monocytes # (Auto) 0.83 0.11-0.59 K/uL Eosinophils # (Auto) 0.18 0-0.5 K/uL Basophils # (Auto) 0.03 0-0.2 K/uL RDW Standard Deviation 38.0 36.4-46.3 fL RDW Coefficient of Variation 11.9 11.5-14.5 % Immature Granulocyte % (Auto) 0.3 % Immature Granulocyte # (Auto) 0.02 0.00-0.02 K/uL Prothrombin Time 11.1 9.0-12.0 SECONDS Prothromb Time International Ratio 1.0 0.9-1.1 Activated Partial Thromboplast Time 30.8 21.0-31.0 SECONDS Partial Thromboplastin Ratio 1.2 Sodium Level 135 136-145 mmol/L Potassium Level 3.5 3.5-5.1 mmol/L Chloride Level 100 98-107 mmol/L Carbon Dioxide Level 28 21-32 mmol/L Anion Gap 7.0 3-11 mmol/L Blood Urea Nitrogen 21 7-18 mg/dl Creatinine 0.78 0.60-1.20 mg/dl Est Creatinine Clear Calc Drug Dose 67.8 ml/min Estimated GFR () 86.8 Estimated GFR (Non- 74.9 BUN/Creatinine Ratio 26.5 10-20 Random Glucose 91 70-99 mg/dl Calcium Level 9.3 8.5-10.1 mg/dl Magnesium Level 1.8 1.8-2.4 mg/dl Troponin I < 0.015 0-0.045 ng/ml Diagnostic Radiology CT HEAD IMPRESSION: No acute intracranial abnormality. CXR IMPRESSION: Mild stable cardiomegaly. Otherwise negative study. No acute process. Impression Assessment and Plan HYPERTENSIVE EMERGENCY - admit to tele - patient presenting with left facial and left arm numbness; found to have BP 205/107 in the ED - long standing history of labile hypertension - symptoms improved once BP was lowered in the ED with IV hydralazine x 2 doses ; currently no focal deficits on exam - head CT negative; MRI / MRA brain ordered - neuro checks - echo 09/2016 - EF 65%, grade II diastolic dysfunction; will hold on repeating for now - troponin negative, will continue to cycle - BP now controlled after hydralazine given in ED so will continue home doses of losartan, carvedilol, and HCTZ for now PAROXYSMAL ATRIAL FIBRILLATION - currently in NSR - rhythm controlled on Flecainide, rate controlled on carvedilol - anticoagulated with Xarelto DVT PROPHYLAXIS - on Xarelto DISPO - The patient will be placed as observation status for now until further work up is complete. Attending addendum: Agree with the above H&P; please see above for more details. Patient is a 72 yo female who presented to the hospital for complaints left sided numbness; per history she has had several admissions in the past for similar complaints involving her left side. She states her left face and left arm felt numb and she woke up with a headache and generally not feeling well. She states she felt as though she was in a fib again and checked her pulse which felt irregular. Cardiac: RR, S1 and S2 auscultated, no murmurs or gallops appreciated Resp: CTA B/L, no wheezes, rales, rhonchi GI: soft, NT, ND, +BSx4 LEFT SIDED NUMBNESS: -previously underwent workup for this, was negative -repeat MRI for further evaluation -Neuro checks -patient is fully anticoagulated with xarelto which will be continued HTN URGENCY: -restart patient's home medications -can use hydralazine PRN if needed for BP above SBP 180 while adjusting home medications -avoid aggressive BP lowering until stroke/TIA have been ruled out VTE Prophylaxis VTE Risk Assessment Done? Y/N: Yes Risk Level: Moderate Given or contraindicated: Other Anticoagulation
[2017-02-26] MEDS ORDERED: LORAZEPAM 2 MG/ML 1 ML VIAL IV STA (20:52)
[2017-02-26] MEDS ORDERED: RIVAROXABAN 10 MG TAB PO SCH (21:00)
[2017-02-26 21:49] LABS: URINE APPEARANCE CLEAR (CLEAR); URINE BILIRUBIN NEG (NEG); URINE COLOR YELLOW; URINE NITRITE NEG (NEG); URINE PH 7.5 (4.5-7.5); URINE SPECIFIC GRAVITY 1.012 (1.000-1.030); UROBILINOGEN NEG (NEG); ZZUR CULT IF INDIC CLEAN CATCH YES
[2017-02-26 21:55] LABS: MANUAL MICROSCOPIC REQUIRED? NO; REVIEW REQ? NO
--- NOTE | 2017-02-26 22:12 | DIAGNOSTIC IMAGING REPORT ---
BRAIN COMBO CLINICAL HISTORY: Stroke mental status change COMPARISON STUDY: No previous studies for comparison. TECHNIQUE: Utilizing a 1.5 Mary magnet and dedicated coil, multiplanar, multiecho imaging of the brain was performed pre and postcontrast administration. IV administration of 6.5 mL of Gadavist contrast was uneventful. FINDINGS: No evidence for acute ischemic insult. Signal characteristics indicate minimal chronic small vessel change of aging. Mild age-related atrophy is also present. The ventricular system is midline. No evidence for abnormal postcontrast enhancement. IMPRESSION: Negative MRI of the brain for age. The above report was generated using voice recognition software. It may contain grammatical, syntax or spelling errors. Electronically signed by: Jose R Sweet M.D. 02/26/2017 10:10 PM Dictated Date/Time: 02/26/2017 10:08 PM
[2017-02-26] MEDS ORDERED: GADAVIST IV PRN ×2 (22:15)
--- NOTE | 2017-02-26 22:15 | DIAGNOSTIC IMAGING REPORT ---
MRA HEAD WITHOUT CONTRAST HISTORY: Mental status change stroke TECHNIQUE: 3-D [id number] MRA of the brain was performed without contrast. COMPARISON STUDY: None. FINDINGS: Visualized intracranial internal carotid arteries, distal vertebral arteries, and basilar artery are widely patent. There is no significant stenosis, occlusion, or aneurysm seen within the bilateral ACAs, MCAs, or assistant executive housekeeper. IMPRESSION: No significant stenosis, occlusion, or aneurysm within the [place]. The above report was generated using voice recognition software. It may contain grammatical, syntax or spelling errors. Electronically signed by: Jose R Sweet M.D. 02/26/2017 10:13 PM Dictated Date/Time: 02/26/2017 10:12 PM
[2017-02-26 22:30] VITALS: BP 136/65; PULSE 62; TEMP 36.5; O2SAT 96; Ht 167.6 cm; Wt 80.4 kg
[2017-02-26 22:48] VITALS: BP 136/65; PULSE 70; TEMP 36.5; O2SAT 94
[2017-02-26] MEDS: LOSARTAN POTASSIUM 50 MG TAB PO SCH (23:56)
[2017-02-26] MEDS: HydrALAZINE 10 MG TAB PO SCH (23:56)
[2017-02-26] MEDS: CARVEDILOL 12.5 MG TAB PO SCH (23:57)
[2017-02-26] MEDS: FLECAINIDE ACETATE 100 MG TAB PO SCH (23:58)
[2017-02-27] VITALS (7 sets, daily range): BP systolic 111–147; BP diastolic 63–68; PULSE 62–66; TEMP 36.4–36.8; O2SAT 95–97
[2017-02-27 04:56] LABS: HEMATOCRIT 39.6 % (37-47); MEAN CELL VOLUME 89.6 fL (80-100); MEAN CORPUSCULAR HEMOGLOBIN 31.7 pg (25-34); MEAN CORPUSCULAR HGB CONC 35.4 g/dl (32-36); MEAN PLATELET VOLUME 9.3 fL (7.4-10.4); PLATELET COUNT 281 K/uL (130-400); RED BLOOD COUNT 4.42 M/uL (4.2-5.4)
[2017-02-27 05:12] LABS: BLOOD UREA NITROGEN 19 mg/dl (7-18); BUN/CREATININE RATIO 20.9 (10-20); CARBON DIOXIDE 30 mmol/L (21-32); CHLORIDE 100 mmol/L (98-107); CREATININE 0.93 mg/dl (0.60-1.20); GLUCOSE 110 mg/dl (70-99); SODIUM 135 mmol/L (136-145)
[2017-02-27 05:45] LABS: ESTIMATED AVERAGE GLUCOSE 103 mg/dl; HA1C FLAG Normal (Normal)
[2017-02-27] MEDS: CARVEDILOL 12.5 MG TAB PO SCH (08:08)
[2017-02-27] MEDS: HydrALAZINE 10 MG TAB PO SCH (08:08)
[2017-02-27] MEDS: LOSARTAN POTASSIUM 50 MG TAB PO SCH (08:09)
[2017-02-27] MEDS: FLECAINIDE ACETATE 100 MG TAB PO SCH (08:10)
[2017-02-27] MEDS ORDERED: HYDROCHLOROTHIAZIDE 50 MG TAB PO SCH (09:00)
[2017-02-27] MEDS ORDERED: RANITIDINE HCL 150 MG TAB PO SCH (09:00)
[2017-02-27] MEDS ORDERED: CHOLECALCIFEROL 1000 INTER.UNIT TAB PO SCH (09:00)
[2017-02-27] MEDS ORDERED: CALCIUM CARBONATE 1250MG TAB PO SCH (09:00)
[2017-02-27] MEDS ORDERED: MAGNESIUM OXIDE 400 MG TAB PO SCH (09:00)
--- NOTE | 2017-02-27 16:17 | Progress Note ---
Internal Med Progress Note Date of Service: Feb 27, 2017. Provider Documentation: SUBJECTIVE: no weakness or paresthesia today on left face or arm ambulating independently in hallway no headache or visual symptoms BP has been stable , pt is continued with home medications MRI/MRA of brain negative for CVA pt and eager to be discharged home already has follow up appointment scheduled with family physician Dr Pathak in tomorrow OBJECTIVE: Vital Signs-as noted below Exam: General-no sign of distress Eyes-sclera non icteric ENT-NAD Neck-no JVD Lungs-CTA Heart-regular S1/S2 Abdomen-soft, non tender Extremities-no lower ext edema Neuro-AAO x3, no focal deficit Lab data as noted below. ASSESSMENT & PLAN: HYPERTENSIVE EMERGENCY - not sure of the etiology at baseline -very labile HTN , on multiple antihypertensives at home mentions of taking her BP meds regularly without missing doses - patient presented with left facial and left arm numbness; found to have BP 205/107 in the ED - long standing history of labile hypertension - symptoms resolved as BP stabilized pt is continued with home medications - head CT negative; MRI / MRA brain -negative study - neuro checks - echo 09/2016 - EF 65%, grade II diastolic dysfunction stable to be discharged home today scheduled to follow up with family physician tomorrow pt is asked to check BP in Am 2 hrs after breakfast and AM meds /resting for 50 mins -keep log and bring to physician visit scheduled to follow up with Cardiology on Mar 2017 LEFT FACIAL /LEFT SIDED NUMBNESS : due to hypertensive urgency no evidence of CVA in detail neuro imaging ( CT head /MRI/MRA of brain - negative study ) symptom resolved after BP has stabilized -no neurological deficit , walking in hallway , no headache or visual symptom pt is continued with out pt antihypertensives close follow up with family physician and cardiology PAROXYSMAL ATRIAL FIBRILLATION - currently in NSR - rhythm controlled on Flecainide, rate controlled on carvedilol - anticoagulated with Xarelto DVT PROPHYLAXIS - on Xarelto DISPOSITION discharge home today Vital Signs: Date Time Temp Pulse Resp B/P (MAP) Pulse Ox O2 Delivery O2 Flow Rate FiO2 02/27/17 16:50 36.6 65 18 97 Room Air 02/27/17 16:08 36.6 65 18 147/68 (94) 97 Room Air 02/27/17 16:00 95 Room Air 02/27/17 12:00 95 Room Air Lab Results:
--- NOTE | 2017-02-27 16:45 | Discharge Instructions ---
Discharge Instructions Date of Service Feb 27, 2017. Admission Reason for Admission: Hypertensive Emergency Discharge Discharge Diagnosis / Problem: UNCONTROLLED HYPERTENSION Discharge Goals Goal(s): Decrease discomfort, Improve disease control, Diagnostic testing, Therapeutic intervention Activity Recommendations Activity Limitations: resume your previous activity . Instructions / Follow-Up Instructions / Follow-Up HOSPITAL FOLLOW UP : 02/28/2017 10:40 AM Tessie Pathak DO [facility] CARDIOLOGY FOLLOW UP : 04/05/2017 10:45 AM Raffaele Zambrano DO Cardiology, [facility] Diet Patient's current hospital diet: AHA Diet (Heart Healthy) Discharge Diet Recommended Diet: AHA Diet (Heart Healthy) Pending Studies Studies pending at discharge: no Laboratory Results Hemoglobin A1c Test 02/26/17 17:30 Range/Units Estimated Average Glucose 103 mg/dl Hemoglobin A1c 5.2 4.5-5.6 % Medical Emergencies . Who to Call and When: Medical Emergencies: If at any time you feel your situation is an emergency, please call 911 immediately. . Non-Emergent Contact Non-Emergency issues call your: Primary Care Provider . . "Provider Documentation" section prepared by Charlene Torres. . VTE Core Measure Inpt VTE Proph given/why not?: Other Anticoagulation
--- NOTE | 2017-02-27 19:03 | Discharge Summary ---
Discharge Summary Date of Service Feb 27, 2017. Discharge Summary Admission Date: Feb 26, 2017 at 19:09 Discharge Date: Feb 27, 2017 Discharge Disposition: Home Principal Diagnosis: UNCONTROLLED HYPERTENSION Procedures: CT HEAD WITH OUT CONTRAST : IMPRESSION: No acute intracranial abnormality. MRI /MRA OF BRAIN : NORMAL STUDY IMPRESSION: No significant stenosis, occlusion, or aneurysm within the [place]. Medication Reconciliation Continued Medications: Calcium Carbonate (Calcium) 600 Mg Tab 1200 MG PO DAILY Carvedilol (Carvedilol) 12.5 Mg Tab 12.5 MG PO BID for 30 Days, #60 TAB Cholecalciferol (Vitamin D3) 1,000 Unit Tab 1 TAB PO DAILY for 30 Days, #30 TAB 5 Refills Clonazepam (Klonopin) 1 Mg Tab 1 MG PO HS PRN for restless legs, #50 Flecainide Acetate (Flecainide Acetate) 150 Mg Tab 150 MG PO BID, #60 Hydralazine HCl (Hydralazine HCl) 10 Mg Tab 10 MG PO BID, #180 Hydrochlorothiazide (Hydrochlorothiazide) 50 Mg Tab 50 MG PO DAILY, #30 Losartan Potassium (Losartan Potassium) 50 Mg Tab 50 MG PO BID, #60 Magnesium Oxide (Mag-Ox) 400 Mg Tab 400 MG PO QAM, TAB Ranitidine (Zantac) 150 Mg Tab 150 MG PO DAILY, TAB Rivaroxaban (Xarelto) 20 Mg Tab 20 MG PO QPM, #30 with supper Admission Information HPI (per Admitting provider): 72 year old female who presents to the ER with left facial and left arm numbness. Patient reports she has felt generally weak and fatigued the past few days. This morning when she woke up she reports she had a mild frontal headache and suspected she was in atrial fibrillation. She reports that she took her pulse and it was irregular. BP was normal at that time. Later in the day, she developed left arm and left facial numbness. She reports it lasted for about two hours and then she came to the ED for further evaluation. Her BP was found to be significantly high and once it was lowered, symptoms resolved. She denies any unilateral weakness, difficulty speaking, understanding, or swallowing. She denies chest pain, palpitations, and shortness of breath. No abdominal pain, nausea, vomiting, or diarrhea. She denies fever and chills. No urinary symptoms. In the ED, patient's BP was 205/107. She was given Hydralazine 10mg IV x 2 with improvement in BP. Head CT is negative for acute findings. Physical Exam (per Admitting): General Appearance: no apparent distress Head: normocephalic, atraumatic Eyes: normal inspection, PERRL, sclerae normal ENT: hearing grossly normal Neck: supple, no JVD Respiratory/Chest: lungs clear, normal breath sounds, no respiratory distress Cardiovascular: regular rate, rhythm, no edema, normal peripheral pulses Abdomen/GI: normal bowel sounds, non tender, soft Extremities/Musculoskelatal: normal inspection, no calf tenderness Neurologic/Psych: no motor/sensory deficits, alert, normal mood/affect, oriented x 3 Skin: normal color, warm/dry Hospital Course HYPERTENSIVE EMERGENCY - not sure of the etiology at baseline -very labile HTN , on multiple antihypertensives at home mentions of taking her BP meds regularly without missing doses - patient presented with left facial and left arm numbness; found to have BP 205/107 in the ED - long standing history of labile hypertension - symptoms resolved as BP stabilized pt is continued with home medications - head CT negative; MRI / MRA brain -negative study - neuro checks - echo 09/2016 - EF 65%, grade II diastolic dysfunction stable to be discharged home today scheduled to follow up with family physician tomorrow pt is asked to check BP in Am 2 hrs after breakfast and AM meds /resting for 50 mins -keep log and bring to physician visit scheduled to follow up with Cardiology on Mar 2017 LEFT FACIAL /LEFT SIDED NUMBNESS : due to hypertensive urgency no evidence of CVA in detail neuro imaging ( CT head /MRI/MRA of brain - negative study ) symptom resolved after BP has stabilized -no neurological deficit , walking in hallway , no headache or visual symptom pt is continued with out pt antihypertensives close follow up with family physician and cardiology PAROXYSMAL ATRIAL FIBRILLATION - currently in NSR - rhythm controlled on Flecainide, rate controlled on carvedilol - anticoagulated with Xarelto DVT PROPHYLAXIS - on Xarelto DISPOSITION discharge home today Discharge Instructions Discharge Instructions Date of Service Feb 27, 2017. Admission Reason for Admission: Hypertensive Emergency Discharge Discharge Diagnosis / Problem: UNCONTROLLED HYPERTENSION Discharge Goals Goal(s): Decrease discomfort, Improve disease control, Diagnostic testing, Therapeutic intervention Activity Recommendations Activity Limitations: resume your previous activity . Instructions / Follow-Up Instructions / Follow-Up HOSPITAL FOLLOW UP : 02/28/2017 10:40 AM Tessie Pathak DO [facility] CARDIOLOGY FOLLOW UP : 04/05/2017 10:45 AM Raffaele Zambrano DO Cardiology, [facility] Hospital Diet Patient's current hospital diet: AHA Diet (Heart Healthy) Discharge Diet Recommended Diet: AHA Diet (Heart Healthy) Pending Studies Studies pending at discharge: no Laboratory Results Hemoglobin A1c Test 02/26/17 17:30 Range/Units Estimated Average Glucose 103 mg/dl Hemoglobin A1c 5.2 4.5-5.6 % Medical Emergencies . Who to Call and When: Medical Emergencies: If at any time you feel your situation is an emergency, please call 911 immediately. . Non-Emergent Contact Non-Emergency issues call your: Primary Care Provider . . "Provider Documentation" section prepared by Charlene Torres. . VTE Core Measure Inpt VTE Proph given/why not?: Other Anticoagulation Additional Copies To Tessie Pathak,Raffaele Tam,DMelchorO.
--- NOTE | 2017-03-05 09:44 | EDITING REQUIRED CODING QUERY ---
SUPPORTING DIAGNOSIS NEEDED Nan GARCÍA, A supporting diagnosis is required for the test/procedure performed on this patient in order for us to be reimbursed by the patient's insurance. Please provide a supporting diagnosis for the following test/procedure listed below next to the test name along with your signature. *If there is no additional diagnosis for this patient that would support the following test/procedure please document that below next to the test/procedure. Test(s)/Procedure(s) that require a supporting diagnosis: * ([id number]) MRA HEAD, NECK DIAGNOSIS: hypertensive emergency, unilateral weakness DATE OF SERVICE: 02/26/17 Provider Signature: RICKY Romo Date: 03/12/17 Thank you [facility] Information Management Once completed, please kindly fax back to [phone] For questions please call [phone]
== END 2017-02-27 17:21 | disposition home or self-care (01) ==
LOC: C.EDB 16:21 → C.MED 19:09 → ENRESERV 19:25 → EDBEDREQ 19:43
PROVIDERS: ADMIT Internal Medicine; ATTEND Hospitalist
DX: I16.1 Hypertensive emergency (principal); I48.0 Paroxysmal atrial fibrillation; K21.9 Gastro-esophageal reflux disease without esophagitis; G25.81 Restless legs syndrome; Z82.3 Family history of stroke; R29.898 Other symptoms and signs involving the musculoskeletal system; Z79.01 Long term (current) use of anticoagulants; Z79.899 Other long term (current) drug therapy

== ENCOUNTER 2017-03-13 13:39 | Emergency (ER) | payer OTHER, MEDICARE ==
[~2017-03-13] VITALS: Ht 167.6 cm; Wt 81.5 kg
[~2017-03-13 13:39] MED LIST changes: +CHOL1000 PO; -CHOL200010 PO; -CTP1CL PO; -CZR25 PO; +CZR50 PO; +HYDR-4322 PO; -PRT/40 PO; +ZNTT/150 PO
[2017-03-13 13:42] VITALS: TEMP 36.4; Ht 167.6 cm; Wt 81.5 kg
[2017-03-13] MEDS ORDERED: HydrALAZINE HCL 20 MG/ML VIAL IV. STA (13:59)
[2017-03-13 14:18] LABS: HEMATOCRIT 39.8 % (37-47); MEAN CORPUSCULAR HGB CONC 35.9 g/dl (32-36); MEAN PLATELET VOLUME 9.1 fL (7.4-10.4); PLATELET COUNT 270 K/uL (130-400); RED BLOOD COUNT 4.47 M/uL (4.2-5.4); WHITE BLOOD COUNT 5.48 K/uL (4.8-10.8)
[2017-03-13 14:19] LABS: BASO % 0.5 %; BASO ABS # 0.03 K/uL (0-0.2); COMPLETE YES; EOS % 2.7 %; IG% 0.2 %; LYMPH % 26.6 %; LYMPH ABS # 1.46 K/uL (1.2-3.4); MONO % 18.6 %; NEUT % 51.4 %
[2017-03-13 14:28] LABS: INR 1.1 (0.9-1.1); PARTIAL THROMBOPLASTIN RATIO 1.2; PROTHROMBIN TIME (PATIENT) 11.4 SECONDS (9.0-12.0)
[2017-03-13 14:39] LABS: CALCIUM 9.3 mg/dl (8.5-10.1); CREATININE 0.86 mg/dl (0.60-1.20); POTASSIUM 3.8 mmol/L (3.5-5.1)
[2017-03-13 14:54] VITALS: BP 167/80; PULSE 61; O2SAT 94
--- NOTE | 2017-03-13 17:27 | EMERGENCY ROOM VISIT NOTE ---
History Report prepared by Carlin: Dorie Beckwith Under the Supervision of: Dr. Lázaro Painter M.D. First contact with patient: 13:48 Chief Complaint: HYPERTENSION Stated Complaint: ELEVATED BP History of Present Illness The patient is a 72 year old female who presents to the Emergency Room with complaints of an episode of high blood pressure beginning this morning. The patient was blood pressure was 212/111 before leaving her house this morning. She denies being more stressed than her normal baseline. The patient states she got the chills when her blood pressure went up today. She states this is normal for her when she has high blood pressure episodes. She denies any fever, headache, problems urinating, chest discomfort or shortness of breath. The patient followed up with Dr. Zambrano-Cardiology after last being admitted for hypertension. Dr. Zambrano did not want to change any of the patient's mediations and advised her to see a kidney specialist . The patient is scheduled to see a kidney specialist tomorrow at [facility]. Source of History: patient Onset: this morning Position: other (generalized) Symptom Intensity: 212/111 Quality: other (high blood pressure) Timing: other (episode) Associated Symptoms: + chills, No chest pain, No SOB Review of Systems See HPI for pertinent positives & negatives. A total of 10 systems reviewed and were otherwise negative. Past Medical & Surgical Medical Problems: (1) AF (atrial fibrillation) (2) GERD (gastroesophageal reflux disease) (3) HTN (hypertension) (4) Migraine (5) Restless Legs Syndrome Surgical Problems: (1) S/P TKR (total knee replacement) Family History Stroke FATHER Social History Smoking Status: Never Smoker Housing Status: lives with significant other Current/Historical Medications Scheduled Calcium Carbonate (Calcium), 1,200 MG PO DAILY Carvedilol (Carvedilol), 12.5 MG PO BID Cholecalciferol (Vitamin D3), 1 TAB PO DAILY Flecainide Acetate (Flecainide Acetate), 150 MG PO BID Hydralazine HCl (Hydralazine HCl), 10 MG PO BID Hydrochlorothiazide (Hydrochlorothiazide), 50 MG PO DAILY Losartan Potassium (Losartan Potassium), 50 MG PO BID Magnesium Oxide (Mag-Ox), 400 MG PO QAM Ranitidine (Zantac), 150 MG PO DAILY Rivaroxaban (Xarelto), 20 MG PO QPM Scheduled PRN Clonazepam (Klonopin), 1 MG PO HS PRN for restless legs Allergies Coded Allergies: Oxycodone (Verified Allergy, Unknown, adverse effects on blood pressure, ) Clonidine Derivatives (Verified Adverse Reaction, Intermediate, 0, 03/13/17 ) throat closing Prednisone (Verified Adverse Reaction, Intermediate, WEAKNESS, 03/13/17) Lisinopril (Verified Adverse Reaction, Unknown, cough, 03/13/17) Reports Dr Meng/[employer] supervisor, took pt off this medication Morphine (Verified Adverse Reaction, Unknown, ADVERSE EFFECTS OF BLOOD PRESSURE, 03/13/17) Physical Exam Vital Signs Date Time Temp Pulse Resp B/P (MAP) Pulse Ox O2 Delivery O2 Flow Rate FiO2 03/13/17 14:54 61 18 167/80 94 Room Air 03/13/17 14:16 59 18 177/100 96 Room Air 03/13/17 14:12 61 18 203/100 96 Room Air 03/13/17 14:10 59 03/13/17 13:42 36.4 64 19 215/102 97 Room Air Physical Exam Constitutional: Vital signs reviewed. Eyes: Pupils are equal round reactive to light. Conjunctiva are noninjected. ENT: Pharynx is clear without erythema or exudate. Mucous membranes are moist. Neck supple without meningeal signs. Respiratory: Clear to auscultation bilaterally. Breath sounds are equal bilaterally. Cardiovascular: Regular rate and rhythm. No rubs or gallops. GI: Soft, nondistended and nontender. Bowel sounds are present. Musculoskeletal: No peripheral edema. No lower extremity tenderness. Integumentary: No cyanosis. Neurological: The patient is awake and alert. No focal deficits. Psychiatric: Normal affect. Medical Decision & Procedures Laboratory Results 03/13/17 14:05 Red Blood Count 4.47, Mean Corpuscular Volume 89.0, Mean Corpuscular Hemoglobin 32.0, Mean Corpuscular Hemoglobin Concent 35.9, Mean Platelet Volume 9.1, Neutrophils (%) (Auto) 51.4, Lymphocytes (%) (Auto) 26.6, Monocytes (%) (Auto) 18.6, Eosinophils (%) (Auto) 2.7, Basophils (%) (Auto) 0.5, Neutrophils # (Auto ) 2.81, Lymphocytes # (Auto) 1.46, Monocytes # (Auto) 1.02, Eosinophils # (Auto ) 0.15, Basophils # (Auto) 0.03 03/13/17 14:05 Test 03/13/17 14:05 03/13/17 14:15 White Blood Count 5.48 K/uL (4.8-10.8) Red Blood Count 4.47 M/uL (4.2-5.4) Hemoglobin 14.3 g/dL (12.0-16.0) Hematocrit 39.8 % (37-47) Mean Corpuscular Volume 89.0 fL (80-100) Mean Corpuscular Hemoglobin 32.0 pg (25-34) Mean Corpuscular Hemoglobin Concent 35.9 g/dl (32-36) Platelet Count 270 K/uL (130-400) Mean Platelet Volume 9.1 fL (7.4-10.4) Neutrophils (%) (Auto) 51.4 % Lymphocytes (%) (Auto) 26.6 % Monocytes (%) (Auto) 18.6 % Eosinophils (%) (Auto) 2.7 % Basophils (%) (Auto) 0.5 % Neutrophils # (Auto) 2.81 K/uL (1.4-6.5) Lymphocytes # (Auto) 1.46 K/uL (1.2-3.4) Monocytes # (Auto) 1.02 K/uL (0.11-0.59) Eosinophils # (Auto) 0.15 K/uL (0-0.5) Basophils # (Auto) 0.03 K/uL (0-0.2) RDW Standard Deviation 38.6 fL (36.4-46.3) RDW Coefficient of Variation 12.0 % (11.5-14.5) Immature Granulocyte % (Auto) 0.2 % Immature Granulocyte # (Auto) 0.01 K/uL (0.00-0.02) Prothrombin Time 11.4 SECONDS (9.0-12.0) Prothromb Time International Ratio 1.1 (0.9-1.1) Activated Partial Thromboplast Time 32.4 SECONDS (21.0-31.0) Partial Thromboplastin Ratio 1.2 Anion Gap 8.0 mmol/L (3-11) Est Creatinine Clear Calc Drug Dose 61.8 ml/min Estimated GFR () 77.1 Estimated GFR (Non- 66.6 BUN/Creatinine Ratio 19.0 (10-20) Calcium Level 9.3 mg/dl (8.5-10.1) Total Bilirubin 0.5 mg/dl (0.2-1) Direct Bilirubin 0.1 mg/dl (0-0.2) Aspartate Amino Transf (AST/SGOT) 18 U/L (15-37) Alanine Aminotransferase (ALT/SGPT) 22 U/L (12-78) Alkaline Phosphatase 89 U/L (45-117) Total Protein 7.4 gm/dl (6.4-8.2) Albumin 3.9 gm/dl (3.4-5.0) Bedside Troponin I < 0.030 ng/ml (0-0.045) Laboratory results as reviewed by me. Medications Administered Medications (Trade) Dose Ordered Sig/Rebecca Route Start Time Stop Time Status Last Admin Dose Admin Hydralazine HCl (HydrALAZINE INJ) 10 mg NOW STAT IV. 03/13/17 13:59 03/13/17 14:00 DC 03/13/17 14:12 10 MG ECG Indication: other (hypertension) Rate (beats per minute): 62 Rhythm: sinus rhythm Findings: 1st degree AV block, nonspecific-ST abn (Lateral), no ectopy Comparison ECG Date: 02/27/17 Change: no significant change ED Course 1352: The patient was evaluated in room B5. A complete history and physical exam was performed. 1359: Hydralazine HCl 10 mg IV. 1457: The patient is now asymptomatic and her blood pressure is now 167/80. 1505: Upon reevaluation, the patient appeared to have improvement of her symptoms. I discussed tonight's findings with the patient. She verbalized agreement of the treatment plan. The patient was discharged home. Medical Decision This is a 72-year-old female who presents for elevated blood pressure. I did perform a limited focused review of portions of the patient's old chart on the electronic medical record. The patient was admitted February 26 for uncontrolled hypertension. She had a negative MRI MRA of the brain and was discharged home to follow up. I did evaluate the patient as noted above. The patient is presenting with blood pressure elevation without any other symptoms. Her only symptoms are chills which she states usually indicates that her blood pressure is high. She has had no fevers or pain anywhere. IV access was established. The patient was placed on a continuous monitor tech. I did treat the patient with hydralazine IV. I did order and personally review the patient's 12-lead EKG as described above. I did order and review the patient's blood work as noted in the electronic medical record. Laboratory results are unremarkable. I did reassess the patient. Her blood pressure did improve significantly. I did discuss the test results with her. She does have an appointment to see her director prison tomorrow which she will keep. She was discharged in good condition. She was given return instructions as outlined below. Medication Reconcilliation Current Medication List: was personally reviewed by me Blood Pressure Screening Patient's blood pressure: Elevated blood pressure Blood pressure disposition: Referred to PCP Impression Primary Impression: Poorly-controlled hypertension Scribe Attestation The scribe's documentation has been prepared under my direct and personally reviewed by me in its entirety. I confirm that the note above accurately reflects all work, treatment, procedures, and medical decision making performed by me. Departure Information Dispostion Home / Self-Care Referrals Tessie Pathak DO (PCP) Forms HOME CARE DOCUMENTATION FORM, IMPORTANT VISIT INFORMATION, WORK / SCHOOL INSTRUCTIONS Patient Instructions ED Hypertension Conf Out Of Control, My [facility] Additional Instructions You have been examined and treated today on an emergency basis only. This is not a substitute for, or an effort to provide, complete comprehensive medical care. It is impossible to recognize and treat all injuries or illnesses in a single emergency department visit. It is therefore important that you follow up closely with your physicians per your appointment. Return for worsening symptoms or if you develop headache, chest pain, palpitations, numbness or weakness on one side your body, trouble with your speech, thinking or walking, vomiting, or any other concerning symptoms.
== END 2017-03-13 15:09 | disposition home or self-care (01) ==
LOC: C.EDB 13:41
DX: I10 Essential (primary) hypertension (principal); I44.0 Atrioventricular block, first degree; I48.91 Unspecified atrial fibrillation; K21.9 Gastro-esophageal reflux disease without esophagitis; R45.1 Restlessness and agitation; Z96.659 Presence of unspecified artificial knee joint; Z79.899 Other long term (current) drug therapy; Z82.3 Family history of stroke; Z88.5 Allergy status to narcotic agent; Z88.8 Allergy status to other drugs, medicaments and biological substances

== ENCOUNTER 2017-09-09 17:20 | Emergency (ER) | payer OTHER, MEDICARE ==
[~2017-09-09] VITALS: Ht 165.1 cm; Wt 83.0 kg
[~2017-09-09 17:20] MED LIST changes: +HYDR-2977 PO; -HYDR-4322 PO; +RANI150T85 PO; -ZNTT/150 PO
[2017-09-09 17:33] VITALS: Ht 165.1 cm; Wt 83.0 kg
--- NOTE | 2017-09-09 19:19 | DIAGNOSTIC IMAGING REPORT ---
CHEST ONE VIEW PORTABLE CLINICAL HISTORY: Hypertension. Atypical chest pain. COMPARISON STUDY: 02/26/2017 FINDINGS: The cardiac and mediastinal contours are normal. There is no evidence of focal pulmonary consolidation. There is no evidence of failure. No pleural effusions are visualized.[ IMPRESSION: No active disease in the chest. Electronically signed by: Broderick Xiong M.D. 09/09/2017 7:18 PM Dictated Date/Time: 09/09/2017 7:17 PM
--- NOTE | 2017-09-09 19:23 | EMERGENCY ROOM VISIT NOTE ---
History Report prepared by Carlin: Mauricio Patel Under the Supervision of: Dr. Audelia Ortega M.D. First contact with patient: 19:00 Chief Complaint: HYPERTENSION Stated Complaint: HBP,FEELS FLUSHED,HEADACHE History of Present Illness The patient is a 72 year old female with a history of hypertension and atrial fibrillation who presents to the Emergency Room with complaints of intermittent chest pain that started yesterday. She states that she has no pain currently, but gets a twinge occasionally. The patient says that it is a "little zap of pain" that is sharp. She adds that it does not hurt to take a deep breath. She says that she last had the pain a couple minutes ago. The patient denies any current shortness of breath. She notes that she has had a cough that has been bad in the mornings. She states that the cough is nonproductive. The patient says that she checked her blood pressure around 3 hours ago, and it was noted to be high around the 160s/98. The patient states that she then got a headache, and her face got flushed, but since she has gotten here, she feels mostly better. The patient says that her blood pressure has gotten as high as over 200 systolic, but that was over a year ago. The patient notes that she has always been cold recently. The patient says that recently it has been more difficult to exert herself. She states that for example, she gets a bit short of breath going up steps. The patient states that she does not get sweaty or have chest discomfort with exertion. She adds that she takes Xarelto. She states that she last had a stress test last month and it was fine. The patient is a non-smoker. Source of History: patient, spouse/significant other Onset: Yesterday Position: chest Symptom Intensity: little zaps Quality: sharp, other (pain) Timing: intermittent Associated Symptoms: + headache (resolved), + cough, + SOB (with exertion) Note: Associated symptoms: High blood pressure. Face was flushed earlier. Review of Systems See HPI for pertinent positives & negatives. A total of 10 systems reviewed and were otherwise negative. Past Medical & Surgical Medical Problems: (1) AF (atrial fibrillation) (2) GERD (gastroesophageal reflux disease) (3) HTN (hypertension) (4) Migraine (5) Restless Legs Syndrome Surgical Problems: (1) S/P TKR (total knee replacement) Family History Stroke FATHER Social History Smoking Status: Never Smoker Smokeless Tobacco Use: No Drug Use: none Marital Status: Housing Status: lives with significant other Occupation Status: retired Current/Historical Medications Scheduled Calcium Carbonate (Calcium), 1,200 MG PO DAILY Carvedilol (Carvedilol), 12.5 MG PO BID Cholecalciferol (Vitamin D3), 1 TAB PO DAILY Flecainide Acetate (Flecainide Acetate), 150 MG PO BID Hydralazine HCl (Hydralazine HCl), 10 MG PO BID Hydrochlorothiazide (Hydrochlorothiazide), 50 MG PO DAILY Losartan Potassium (Losartan Potassium), 50 MG PO BID Magnesium Oxide (Mag-Ox), 400 MG PO QAM Ranitidine (Zantac), 150 MG PO DAILY Rivaroxaban (Xarelto), 20 MG PO QPM Scheduled PRN Clonazepam (Klonopin), 1 MG PO HS PRN for restless legs Allergies Coded Allergies: Oxycodone (Verified Allergy, Unknown, adverse effects on blood pressure, ) Clonidine Derivatives (Verified Adverse Reaction, Intermediate, 0, 03/13/17 ) throat closing Prednisone (Verified Adverse Reaction, Intermediate, WEAKNESS, 03/13/17) Lisinopril (Verified Adverse Reaction, Unknown, cough, 03/13/17) Reports Dr Meng/title i coordinator, took pt off this medication Morphine (Verified Adverse Reaction, Unknown, ADVERSE EFFECTS OF BLOOD PRESSURE, 03/13/17) Physical Exam Vital Signs Date Time Temp Pulse Resp B/P (MAP) Pulse Ox O2 Delivery O2 Flow Rate FiO2 09/09/17 21:52 36.5 60 22 137/80 95 09/09/17 20:39 62 22 156/91 95 Room Air 09/09/17 19:47 61 20 157/87 94 09/09/17 19:35 62 09/09/17 17:33 36.5 66 18 181/84 94 Room Air Physical Exam Vital signs reviewed. General: Well-appearing 72 year old female, in no significant distress. HEENT: No scleral icterus, PERRLA, neck supple. Atraumatic. Cardiovascular: Regular rate and rhythm, no extra sounds. Pulmonary: Clear to auscultation bilaterally, normal work of breathing. Abdomen: Soft, nontender, nondistended, positive bowel sounds. Musculoskeletal: Atraumatic, no peripheral edema. Neurologic: Patient awake alert and oriented x 3, full strength in all 4 extremities. Cranial nerves 2 through 12 grossly intact. Skin: Warm, dry, no rash Medical Decision & Procedures ER Provider Diagnostic Interpretation: X-ray results as stated below per interpretation by me and the radiologist: CHEST ONE VIEW PORTABLE CLINICAL HISTORY: Hypertension. Atypical chest pain. COMPARISON STUDY: 02/26/2017 FINDINGS: The cardiac and mediastinal contours are normal. There is no evidence of focal pulmonary consolidation. There is no evidence of failure. No pleural effusions are visualized.[ IMPRESSION: No active disease in the chest. Electronically signed by: Broderick Xiong M.D. 09/09/2017 7:18 PM Dictated Date/Time: 09/09/2017 7:17 PM Laboratory Results 09/09/17 19:05 Red Blood Count 4.99, Mean Corpuscular Volume 87.2, Mean Corpuscular Hemoglobin 31.7, Mean Corpuscular Hemoglobin Concent 36.3, Mean Platelet Volume 9.3, Neutrophils (%) (Auto) 55.7, Lymphocytes (%) (Auto) 27.2, Monocytes (%) (Auto) 13.5, Eosinophils (%) (Auto) 2.9, Basophils (%) (Auto) 0.6, Neutrophils # (Auto ) 3.83, Lymphocytes # (Auto) 1.87, Monocytes # (Auto) 0.93, Eosinophils # (Auto ) 0.20, Basophils # (Auto) 0.04 09/09/17 19:05 Test 09/09/17 19:05 09/09/17 19:10 09/09/17 20:19 White Blood Count 6.88 K/uL (4.8-10.8) Red Blood Count 4.99 M/uL (4.2-5.4) Hemoglobin 15.8 g/dL (12.0-16.0) Hematocrit 43.5 % (37-47) Mean Corpuscular Volume 87.2 fL (80-100) Mean Corpuscular Hemoglobin 31.7 pg (25-34) Mean Corpuscular Hemoglobin Concent 36.3 g/dl (32-36) Platelet Count 304 K/uL (130-400) Mean Platelet Volume 9.3 fL (7.4-10.4) Neutrophils (%) (Auto) 55.7 % Lymphocytes (%) (Auto) 27.2 % Monocytes (%) (Auto) 13.5 % Eosinophils (%) (Auto) 2.9 % Basophils (%) (Auto) 0.6 % Neutrophils # (Auto) 3.83 K/uL (1.4-6.5) Lymphocytes # (Auto) 1.87 K/uL (1.2-3.4) Monocytes # (Auto) 0.93 K/uL (0.11-0.59) Eosinophils # (Auto) 0.20 K/uL (0-0.5) Basophils # (Auto) 0.04 K/uL (0-0.2) RDW Standard Deviation 39.1 fL (36.4-46.3) RDW Coefficient of Variation 12.2 % (11.5-14.5) Immature Granulocyte % (Auto) 0.1 % Immature Granulocyte # (Auto) 0.01 K/uL (0.00-0.02) Anion Gap 8.0 mmol/L (3-11) Est Creatinine Clear Calc Drug Dose 50.5 ml/min Estimated GFR () 61.3 Estimated GFR (Non- 52.9 BUN/Creatinine Ratio 24.9 (10-20) Calcium Level 9.2 mg/dl (8.5-10.1) Magnesium Level 1.9 mg/dl (1.8-2.4) Total Bilirubin 0.6 mg/dl (0.2-1) Direct Bilirubin 0.1 mg/dl (0-0.2) Aspartate Amino Transf (AST/SGOT) 25 U/L (15-37) Alanine Aminotransferase (ALT/SGPT) 35 U/L (12-78) Alkaline Phosphatase 103 U/L (45-117) Total Protein 8.5 gm/dl (6.4-8.2) Albumin 4.2 gm/dl (3.4-5.0) Urine Color YELLOW Urine Appearance CLEAR (CLEAR) Urine pH 7.0 (4.5-7.5) Urine Specific [place] 1.009 (1.000-1.030) Urine Protein NEG (NEG) Urine Glucose (UA) NEG (NEG) Urine Ketones NEG (NEG) Urine Occult Blood NEG (NEG) Urine Nitrite NEG (NEG) Urine Bilirubin NEG (NEG) Urine Urobilinogen NEG (NEG) Urine Leukocyte Esterase SMALL (NEG) Urine WBC (Auto) 1-5 /hpf (0-5) Urine RBC (Auto) 0-4 /hpf (0-4) Urine Hyaline Casts (Auto) 0 /lpf (0-5) Urine Epithelial Cells (Auto) 0-5 /lpf (0-5) Urine Bacteria (Auto) NEG (NEG) Troponin I < 0.015 ng/ml (0-0.045) Laboratory results per my review. Medications Administered Medications (Trade) Dose Ordered Sig/Rebecca Route Start Time Stop Time Status Last Admin Dose Admin Potassium Chloride (Klor-Con M10) 40 meq NOW STAT PO 09/09/17 20:03 09/09/17 20:04 DC 09/09/17 20:26 40 MEQ Rivaroxaban (Xarelto Tab) 20 mg NOW STAT PO 09/09/17 20:05 09/09/17 20:09 DC 09/09/17 20:28 20 MG Carvedilol (Coreg Tab) 12.5 mg NOW ONCE PO 09/09/17 20:15 09/09/17 20:16 DC 09/09/17 20:15 12.5 MG Flecainide Acetate (Tambocor Tab) 150 mg NOW STAT PO 09/09/17 20:05 09/09/17 20:09 DC 09/09/17 20:31 150 MG Hydralazine HCl (Apresoline Tab) 10 mg NOW STAT PO 09/09/17 20:05 09/09/17 20:09 DC 09/09/17 20:26 10 MG ECG Per My Interpretation Indication: other (hypertension) Rate (beats per minute): 64 Rhythm: sinus rhythm Findings: 1st degree AV block, no acute ischemic change, other (possible previous inferior infarct) ED Course 1913: Past medical records reviewed. The patient was evaluated in room B8. A complete history and physical examination was performed. 2002: Klor-Con M10 40 meq PO. 2005: Cozaar Tab 50 mg PO, Apresoline Tab 10 mg PO, Tambocor Tab 150 mg PO, Xarelto Tab 20 mg PO. 2015: Coreg Tab 12.5 mg PO. 2126: Old records reviewed from outside hospital: No inducible ischemia. Normal stress test. 2137: Upon reevaluation, the patient appeared to have improvement of her symptoms. I discussed findings with her. She verbalized agreement of the treatment plan. She was discharged home. Medical Decision Differential diagnosis: Acute coronary syndrome, pulmonary embolus, aortic dissection, musculoskeletal pain, pneumonia, pleural effusion, pneumothorax This patient was evaluated and appeared to be in no significant distress. Physical examination reveals a mild hypertension. Laboratory work reveals negative cardiac enzymes, patient is found to be hypokalemic and given 40 mEq of p.o. potassium chloride. Chest x-ray reveals no evidence of focal lung consolidation or failure. EKG reveals no acute ischemic change. Patient was given her evening blood pressure medications and Xarelto. 2 troponins are negative. Patient was advised to follow-up with her PCP for blood pressure recheck this week. She may warrant further cardiac evaluation although her recent stress test was nonischemic. Patient was discharged with her and will return to the ER for worsening of symptoms or any medical concerns. Medication Reconcilliation Current Medication List: was personally reviewed by me Blood Pressure Screening Patient's blood pressure: Elevated blood pressure Blood pressure disposition: Elevated BP felt to be situational Impression Primary Impression: Atypical chest pain Additional Impression: Hypertension Scribe Attestation The scribe's documentation has been prepared under my direction and personally reviewed by me in its entirety. I confirm that the note above accurately reflects all work, treatment, procedures, and medical decision making performed by me. Departure Information Dispostion Home / Self-Care Referrals Tessie Pathak DO (PCP) Patient Instructions My [facility] Additional Instructions Diagnosis: Chest pain, hypertension Please continue your medications as prescribed. Call Dr Zambrano's office tomorrow to arrange close follow up. Return to the ED for worsening of symptoms or any medical concerns. Problem Qualifiers
[2017-09-09 19:27] LABS: BASO % 0.6 %; BASO ABS # 0.04 K/uL (0-0.2); EOS % 2.9 %; HEMATOCRIT 43.5 % (37-47); HEMOGLOBIN 15.8 g/dL (12.0-16.0); IG# 0.01 K/uL (0.00-0.02); LYMPH % 27.2 %; LYMPH ABS # 1.87 K/uL (1.2-3.4); MEAN CELL VOLUME 87.2 fL (80-100); MEAN CORPUSCULAR HEMOGLOBIN 31.7 pg (25-34); MEAN CORPUSCULAR HGB CONC 36.3 g/dl (32-36); MEAN PLATELET VOLUME 9.3 fL (7.4-10.4); MONO % 13.5 %; MONO ABS # 0.93 K/uL (0.11-0.59); NEUT % 55.7 %; NEUT ABS # 3.83 K/uL (1.4-6.5); PLATELET COUNT 304 K/uL (130-400); RED CELL DISTRIBUTION WIDTH CV 12.2 % (11.5-14.5); RED CELL DISTRIBUTION WIDTH SD 39.1 fL (36.4-46.3); WHITE BLOOD COUNT 6.88 K/uL (4.8-10.8)
[2017-09-09 19:55] LABS: ALBUMIN 4.2 gm/dl (3.4-5.0); ALT/SGPT 35 U/L (12-78); BLOOD UREA NITROGEN 26 mg/dl (7-18); CALCIUM 9.2 mg/dl (8.5-10.1); CARBON DIOXIDE 30 mmol/L (21-32); CREATININE 1.04 mg/dl (0.60-1.20); GLUCOSE 92 mg/dl (70-99); SODIUM 135 mmol/L (136-145)
[2017-09-09 20:00] LABS: ALKALINE PHOSPHATASE 103 U/L (45-117); AST/SGOT 25 U/L (15-37); TOTAL PROTEIN 8.5 gm/dl (6.4-8.2)
[2017-09-09] MEDS ORDERED: POTASSIUM CHLORIDE 10 MEQ TABCR PO STA (20:03)
[2017-09-09] MEDS ORDERED: RIVAROXABAN 20 MG TAB PO STA (20:05)
[2017-09-09] MEDS ORDERED: FLECAINIDE ACETATE 100 MG TAB PO STA (20:05)
[2017-09-09] MEDS ORDERED: LOSARTAN POTASSIUM 50 MG TAB PO STA (20:05)
[2017-09-09] MEDS ORDERED: HydrALAZINE 10 MG TAB PO STA (20:05)
[2017-09-09] MEDS ORDERED: CARVEDILOL 12.5 MG TAB PO ONE (20:15)
[2017-09-09 21:52] VITALS: BP 137/80; PULSE 60; TEMP 36.5; O2SAT 95
== END 2017-09-09 21:52 | disposition home or self-care (01) ==
LOC: C.EDB 17:21
DX: R07.89 Other chest pain (principal); I10 Essential (primary) hypertension; Z79.02 Long term (current) use of antithrombotics/antiplatelets; I48.91 Unspecified atrial fibrillation; K21.9 Gastro-esophageal reflux disease without esophagitis; G25.81 Restless legs syndrome; Z96.659 Presence of unspecified artificial knee joint; Z82.3 Family history of stroke; Z79.899 Other long term (current) drug therapy; Z88.5 Allergy status to narcotic agent; Z88.8 Allergy status to other drugs, medicaments and biological substances

== ENCOUNTER → 2017-10-31 | Outpatient (CLI) | payer OTHER, MEDICARE ==
--- NOTE | 2017-11-01 07:49 | MAMMOGRAPHY REPORT ---
BILATERAL DIGITAL SCREENING MAMMOGRAM TOMOSYNTHESIS WITH CAD: 10/31/2017 CLINICAL HISTORY: Routine screening. TECHNIQUE: Breast tomosynthesis in addition to standard 2D mammography was performed. Current study was also evaluated with a Computer Aided Detection (CAD) system. COMPARISON: Comparison is made to exams dated: 10/29/2016 mammogram, 10/06/2015 mammogram, 10/04/2014 ma mmogram, 08/28/2013 mammogram, 07/29/2012 mammogram, and 07/09/2011 mammogram - [facility] er. BREAST COMPOSITION: There are scattered areas of fibroglandular density in both breasts. FINDINGS: No suspicious masses, calcifications, or areas of architectural distortion are noted in ei ther breast. There has been no significant interval change compared to prior exams. Scattered bilate ral benign-appearing calcifications are not significantly changed. IMPRESSION: ACR BI-RADS CATEGORY 2: BENIGN There is no mammographic evidence of malignancy. A 1 year screening mammogram is recommended. The pa tient will receive written notification of the results. Approximately 10% of breast cancers are not detected with mammography. A negative mammographic report should not delay biopsy if a clinically suggestive mass is present. Jocelyn De Leon M.D. /:10/31/2017 12:40:31 Patient Case Coordinator: Jonathan PIMENTEL(Yadiel)(M), [facility] letter sent: Normal 1/2 BI-RADS Code: ACR BI-RADS Category 2: Benign
== END | disposition home or self-care (01) ==
LOC: C.MAMM 11:12
PROVIDERS: ATTEND Family Medicine
DX: Z12.31 Encounter for screening mammogram for malignant neoplasm of breast (principal)

== ENCOUNTER 2017-11-10 20:38 | Emergency (ER) | payer OTHER, MEDICARE ==
[~2017-11-10] VITALS: Ht 167.6 cm; Wt 79.3 kg
[~2017-11-10 20:38] MED LIST changes: -CALC-393 PO; -FLEC150T PO
[2017-11-10 20:42] VITALS: TEMP 36.5; Ht 167.6 cm; Wt 79.3 kg
[2017-11-10 21:00] VITALS: O2SAT 97
[2017-11-10] MEDS ORDERED: POTA20TA13 PO (21:10)
[2017-11-10] MEDS ORDERED: KLN1X PO (21:10)
[2017-11-10] MEDS ORDERED: HYG25 PO (21:10)
[2017-11-10] MEDS ORDERED: AMLO2.5T PO (21:10)
[2017-11-10] MEDS ORDERED: XRL20 PO (21:10)
[2017-11-10] MEDS ORDERED: CRG625 PO (21:10)
[2017-11-10] MEDS ORDERED: ACYC-57 PO (21:14)
[2017-11-10] MEDS ORDERED: MOME6000 NAE (21:14)
[2017-11-10] MEDS ORDERED: VNTHFA/IN INH (21:14)
[2017-11-10] MEDS ORDERED: HydrALAZINE 10 MG TAB PO SCH (21:28)
[2017-11-10 21:29] LABS: BASO % 0.6 %; BASO ABS # 0.04 K/uL (0-0.2); EOS % 2.9 %; HEMATOCRIT 42.5 % (37-47); HEMOGLOBIN 15.6 g/dL (12.0-16.0); IG# 0.01 K/uL (0.00-0.02); LYMPH % 30.7 %; MEAN CELL VOLUME 87.6 fL (80-100); MEAN CORPUSCULAR HEMOGLOBIN 32.2 pg (25-34); MEAN CORPUSCULAR HGB CONC 36.7 g/dl (32-36); MEAN PLATELET VOLUME 9.7 fL (7.4-10.4); MONO % 13.2 %; NEUT % 52.5 %; NEUT ABS # 3.58 K/uL (1.4-6.5); PLATELET COUNT 271 K/uL (130-400); RED CELL DISTRIBUTION WIDTH CV 11.8 % (11.5-14.5); RED CELL DISTRIBUTION WIDTH SD 37.5 fL (36.4-46.3); WHITE BLOOD COUNT 6.83 K/uL (4.8-10.8)
[2017-11-10 21:35] LABS: CALCIUM 9.5 mg/dl (8.5-10.1); CREATININE 0.94 mg/dl (0.60-1.20); POTASSIUM 3.6 mmol/L (3.5-5.1)
[2017-11-10 21:40] LABS: INR 1.3 (0.9-1.1); PTT PATIENT 40.6 SECONDS (21.0-31.0)
[2017-11-10 22:03] VITALS: BP 153/87; PULSE 61; O2SAT 97
--- NOTE | 2017-11-10 22:03 | DIAGNOSTIC IMAGING REPORT ---
CHEST ONE VIEW PORTABLE HISTORY: Atypical chest pain COMPARISON: None. FINDINGS: The lungs are clear. Cardiac silhouette remains borderline enlarged. No pleural effusions. No pneumothorax. IMPRESSION: No significant change compared to the prior study. No acute process. Electronically signed by: Navjot Anders M.D. 11/10/2017 10:02 PM Dictated Date/Time: 11/10/2017 10:01 PM
[2017-11-10] MEDS ORDERED: FLEC150T PO (22:08)
[2017-11-10] MEDS ORDERED: CALC-393 PO (22:08)
[2017-11-10] MEDS ORDERED: HYDR-4715 PO (22:10)
--- NOTE | 2017-11-11 00:02 | EMERGENCY ROOM VISIT NOTE ---
History Report prepared by Carlin: Gosia Kessler Under the Supervision of: Dr. Lázaro Painter M.D. First contact with patient: 20:47 Chief Complaint: HYPERTENSION Stated Complaint: HIGH BLOOD PRESSURE,SHAKEY History of Present Illness The patient is a 72 year old female who presents to the Emergency Room with complaints of worsening hypertension starting yesterday. She has a history of hypertension, but her blood pressure had been well controlled recently. The patient then had some medication adjustments. She had been feeling weak after taking her morning medications so she was instructed to take her both her amlodipine pills at night. She also had a cardiac event monitor which showed that her heart rate was decreasing to 20 at night. They decided on trying medication adjustments before a pacemaker. Her flecainide and carvedilol doses were halved 2 days ago. Her blood pressure started becoming elevated yesterday and worsened today. Her blood pressure was 173/93. She has had a headache which she has had before with high blood pressure. She denies any chest pain, SOB, fever, vomiting, focal weakness or numbness. Source of History: patient Onset: yesterday Symptom Intensity: 173/93 Quality: other (high blood pressure) Timing: worsening Associated Symptoms: + headache, + weakness (Generalized), No fevers, No chest pain, No SOB, No vomiting, No numbness Review of Systems See HPI for pertinent positives & negatives. A total of 10 systems reviewed and were otherwise negative. Past Medical & Surgical Medical Problems: (1) AF (atrial fibrillation) (2) GERD (gastroesophageal reflux disease) (3) HTN (hypertension) (4) Migraine (5) Restless Legs Syndrome Surgical Problems: (1) S/P TKR (total knee replacement) Family History Stroke FATHER Social History Smoking Status: Never Smoker Drug Use: none Marital Status: Housing Status: lives with significant other Occupation Status: retired Current/Historical Medications Scheduled Amlodipine Besylate (Norvasc), 2.5 MG PO BID Calcium Carbonate (Calcium), 1,200 MG PO DAILY Carvedilol (Carvedilol), 6.25 MG PO BID Chlorthalidone (Chlorthalidone), 25 MG PO DAILY Cholecalciferol (Vitamin D3), 1,000 INTER.UNIT PO DAILY Flecainide Acetate (Flecainide Acetate), 75 MG PO BID Hydralazine Hcl (Apresoline), 1 TAB PO TID Magnesium Oxide (Mag-Ox), 400 MG PO QAM Potassium Chloride Microencaps (Potassium Chloride Er), 20 MEQ PO DAILY Rivaroxaban (Xarelto), 20 MG PO DAILY Scheduled PRN Acyclovir (Zovirax), 200 MG PO Q4H PRN for Cold Sore(s) Albuterol Hfa (Ventolin Hfa), 2 PUFFS INH Q4H PRN for Allergy Symptoms or Cough Clonazepam (Clonazepam), 1 MG PO HS PRN for Anxiety or Restless Legs Mometasone Furoate (Nasal) (Mometasone Furoate), 2 SPRAYS LINA DAILY PRN for Allergy Symptoms Ranitidine (Zantac), 150 MG PO DAILY PRN for Heartburn Allergies Coded Allergies: Oxycodone (Verified Allergy, Unknown, adverse effects on blood pressure, ) Clonidine Derivatives (Verified Adverse Reaction, Intermediate, 0, 03/13/17 ) throat closing Prednisone (Verified Adverse Reaction, Intermediate, WEAKNESS, 03/13/17) Lisinopril (Verified Adverse Reaction, Unknown, cough, 03/13/17) Reports Dr Meng/office worker, took pt off this medication Morphine (Verified Adverse Reaction, Unknown, ADVERSE EFFECTS OF BLOOD PRESSURE, 03/13/17) Physical Exam Vital Signs Date Time Temp Pulse Resp B/P (MAP) Pulse Ox O2 Delivery O2 Flow Rate FiO2 11/10/17 22:03 61 18 153/87 97 Room Air 11/10/17 21:02 61 18 191/85 97 Room Air 11/10/17 21:00 97 Room Air 11/10/17 20:59 64 11/10/17 20:42 36.5 62 18 198/88 96 Room Air Physical Exam Constitutional: Vital signs reviewed. Eyes: Pupils are equal round reactive to light. Conjunctiva are noninjected. ENT: Pharynx is clear without erythema or exudate. Mucous membranes are moist. Neck supple without meningeal signs. Respiratory: Clear to auscultation bilaterally. Breath sounds are equal bilaterally. Cardiovascular: Regular rate and rhythm. No rubs or gallops. GI: Soft, nondistended and nontender. Bowel sounds are present. Musculoskeletal: No peripheral edema. No lower extremity tenderness. Integumentary: No cyanosis. Neurological: The patient is awake and alert. No focal deficits. Psychiatric: Normal affect. Medical Decision & Procedures ER Provider Diagnostic Interpretation: X-ray results as stated below per interpretation by me and the radiologist: CHEST ONE VIEW PORTABLE HISTORY: Atypical chest pain COMPARISON: None. FINDINGS: The lungs are clear. Cardiac silhouette remains borderline enlarged. No pleural effusions. No pneumothorax. IMPRESSION: No significant change compared to the prior study. No acute process. Electronically signed by: Navjot Anders M.D. 11/10/2017 10:02 PM Dictated Date/Time: 11/10/2017 10:01 PM Laboratory Results 11/10/17 20:53 Red Blood Count 4.85, Mean Corpuscular Volume 87.6, Mean Corpuscular Hemoglobin 32.2, Mean Corpuscular Hemoglobin Concent 36.7, Mean Platelet Volume 9.7, Neutrophils (%) (Auto) 52.5, Lymphocytes (%) (Auto) 30.7, Monocytes (%) (Auto) 13.2, Eosinophils (%) (Auto) 2.9, Basophils (%) (Auto) 0.6, Neutrophils # (Auto ) 3.58, Lymphocytes # (Auto) 2.10, Monocytes # (Auto) 0.90, Eosinophils # (Auto ) 0.20, Basophils # (Auto) 0.04 11/10/17 20:53 Test 11/10/17 20:53 11/10/17 20:58 White Blood Count 6.83 K/uL (4.8-10.8) Red Blood Count 4.85 M/uL (4.2-5.4) Hemoglobin 15.6 g/dL (12.0-16.0) Hematocrit 42.5 % (37-47) Mean Corpuscular Volume 87.6 fL (80-100) Mean Corpuscular Hemoglobin 32.2 pg (25-34) Mean Corpuscular Hemoglobin Concent 36.7 g/dl (32-36) Platelet Count 271 K/uL (130-400) Mean Platelet Volume 9.7 fL (7.4-10.4) Neutrophils (%) (Auto) 52.5 % Lymphocytes (%) (Auto) 30.7 % Monocytes (%) (Auto) 13.2 % Eosinophils (%) (Auto) 2.9 % Basophils (%) (Auto) 0.6 % Neutrophils # (Auto) 3.58 K/uL (1.4-6.5) Lymphocytes # (Auto) 2.10 K/uL (1.2-3.4) Monocytes # (Auto) 0.90 K/uL (0.11-0.59) Eosinophils # (Auto) 0.20 K/uL (0-0.5) Basophils # (Auto) 0.04 K/uL (0-0.2) RDW Standard Deviation 37.5 fL (36.4-46.3) RDW Coefficient of Variation 11.8 % (11.5-14.5) Immature Granulocyte % (Auto) 0.1 % Immature Granulocyte # (Auto) 0.01 K/uL (0.00-0.02) Prothrombin Time 13.8 SECONDS (9.0-12.0) Prothromb Time International Ratio 1.3 (0.9-1.1) Activated Partial Thromboplast Time 40.6 SECONDS (21.0-31.0) Partial Thromboplastin Ratio 1.6 Anion Gap 6.0 mmol/L (3-11) Est Creatinine Clear Calc Drug Dose 55.8 ml/min Estimated GFR () 69.3 Estimated GFR (Non- 59.8 BUN/Creatinine Ratio 23.9 (10-20) Calcium Level 9.5 mg/dl (8.5-10.1) Bedside Troponin I < 0.030 ng/ml (0-0.045) Laboratory results as reviewed by me. ECG Per My Interpretation Indication: other (hypertension) Rate (beats per minute): 64 Rhythm: sinus rhythm Findings: 1st degree AV block, left axis deviation, other (VT interval 236, no ST elevation) Comparison ECG Date: 09-Sep-2017 Change: Patient had the AV block at that time. She also had a prolonged QT which she does not have today. ED Course 2048: The patient was evaluated in room A11B. A complete history and physical exam was performed. 2124: I discussed the patient's case with Dr. Zambrano, [facility] cardiology. He recommends adding hydralazine 10 mg TID and discharge home. 2199: I reevaluated the patient. Her blood pressure is now 152/87. She feels much better. Her headache is almost gone. I cancelled the hydralazine because she is due to take her amlodipine. She will get a prescription, but will recheck blood pressure in the morning to check if she needs to take additional medications. I discussed tontati's findings with her. She verbalized agreement of the treatment plan. She was discharged home. Medical Decision This is a 72-year-old female presents with elevated blood pressure. Differential diagnosis includes stress, hypertensive urgency, hypertensive emergency, renal dysfunction. I did perform a limited focused review of portions of the patient's old chart on the electronic medical record. The patient was seen here in August for hypertension and feeling flushed with a headache and chest pain. She had a work up here, was treated with oral medications, and discharged home. She was also seen here February of last year for hypertension. She was treated with hydralazine and discharged home. I did evaluate the patient as noted above. IV access was established. The patient was placed on a continuous information analyst. She is hypertensive here. I did order and personally review the patient's 12-lead EKG and chest x-ray as described above. I did order and review the patient's blood work as noted in the electronic medical record. She has mild hyponatremia. I did discuss the case with her office worker, Dr. Harvey, who recommended placing the patient on hydralazine 10 mg 3 times daily. I did order hydralazine here but when I went to recheck the patient her blood pressure improves spontaneously and was 153/87. She was due to take her amlodipine tonight and so I canceled the hydralazine here. She stated she felt better and her headache was almost resolved. I did give her prescription for hydralazine as instructed by the office worker but told her to keep an eye on her blood pressure before filling this prescription and talking to her office worker before starting it. She was discharged in good condition and given return instructions as outlined below. Medication Reconcilliation Current Medication List: was personally reviewed by me Blood Pressure Screening Patient's blood pressure: Elevated blood pressure Blood pressure disposition: Referred to PCP Consults Time Called: 2114 Consulting Physician: Keila Junior cardiology Returned Call: [phone] I discussed the patient's case with him. He recommends adding hydralazine 10 mg TID and discharge home. Impression Primary Impression: Poorly-controlled hypertension Additional Impression: Headache Scribe Attestation The scribe's documentation has been prepared under my direct and personally reviewed by me in its entirety. I confirm that the note above accurately reflects all work, treatment, procedures, and medical decision making performed by me. Departure Information Dispostion Home / Self-Care Prescriptions Hydralazine Hcl (APRESOLINE) 10 Mg Tab 1 TAB PO TID for 10 Days, #30 TAB 3 Refills Prov: Lázaro Painter M.D. 11/10/17 Referrals Tessie Pathak,DO Forms HOME CARE DOCUMENTATION FORM, IMPORTANT VISIT INFORMATION, WORK / SCHOOL INSTRUCTIONS Patient Instructions ED Hypertension Conf Out Of Control, My [facility] Additional Instructions You have been examined and treated today on an emergency basis only. This is not a substitute for, or an effort to provide, complete comprehensive medical care. It is impossible to recognize and treat all injuries or illnesses in a single emergency department visit. It is therefore important that you follow up closely with your physician. Call as soon as possible for an appointment. Return for worsening symptoms or if you develop chest pain, shortness of breath , numbness or weakness on one side of your body, difficulties with your speech or walking, or any other concerning symptoms. Take your medications as prescribed. Check your blood pressure in the morning. If it is not significantly elevated do not feel your prescription for hydralazine. Problem Qualifiers Additional Impression: Headache Headache type: unspecified Headache chronicity pattern: episodic headache Intractability: not intractable Qualified Codes: R51 - Headache
== END 2017-11-10 22:17 | disposition home or self-care (01) ==
LOC: C.EDB 20:39 → C.EDA 22:17
DX: I10 Essential (primary) hypertension (principal); R51 Headache; I48.91 Unspecified atrial fibrillation; Z96.659 Presence of unspecified artificial knee joint; Z88.5 Allergy status to narcotic agent; Z88.8 Allergy status to other drugs, medicaments and biological substances; Z82.3 Family history of stroke; Z79.01 Long term (current) use of anticoagulants; Z79.899 Other long term (current) drug therapy

== ENCOUNTER 2018-01-27 12:33 | Emergency (ER) | payer OTHER, MEDICARE ==
[~2018-01-27] VITALS: Ht 167.6 cm; Wt 77.5 kg
[~2018-01-27 12:33] MED LIST changes: +ACYC-57 PO; +AMLO2.5T PO; +CALC-393 PO; -CLON1TAB3 PO; -CRG125 PO; +CRG625 PO; -CZR50 PO; +FLEC150T PO; -HYD50 PO; -HYDR-2977 PO; +HYDR-4715 PO; +HYG25 PO; +KLN1X PO; +MOME6000 NAE; +POTA20TA13 PO; -RIVA1TAB4 PO; +VNTHFA/IN INH; +XRL20 PO
[2018-01-27 12:37] VITALS: TEMP 36.5; Ht 167.6 cm; Wt 77.5 kg
[2018-01-27] MEDS ORDERED: OMEP20CA9 PO (13:05)
[2018-01-27] MEDS ORDERED: HYDR-2977 PO (13:05)
[2018-01-27 13:25] LABS: BASO % 0.5 %; BASO ABS # 0.03 K/uL (0-0.2); EOS % 3.3 %; EOS ABS # 0.19 K/uL (0-0.5); HEMATOCRIT 42.1 % (37-47); HEMOGLOBIN 14.9 g/dL (12.0-16.0); IG# 0.01 K/uL (0.00-0.02); LYMPH % 24.5 %; LYMPH ABS # 1.43 K/uL (1.2-3.4); MEAN CELL VOLUME 88.1 fL (80-100); MEAN CORPUSCULAR HEMOGLOBIN 31.2 pg (25-34); MEAN CORPUSCULAR HGB CONC 35.4 g/dl (32-36); MEAN PLATELET VOLUME 9.7 fL (7.4-10.4); MONO % 13.7 %; NEUT % 57.8 %; NEUT ABS # 3.37 K/uL (1.4-6.5); PLATELET COUNT 291 K/uL (130-400); RED CELL DISTRIBUTION WIDTH CV 11.9 % (11.5-14.5); RED CELL DISTRIBUTION WIDTH SD 38.1 fL (36.4-46.3); WHITE BLOOD COUNT 5.83 K/uL (4.8-10.8)
--- NOTE | 2018-01-27 13:32 | EMERGENCY ROOM VISIT NOTE ---
History First contact with patient: 13:01 Chief Complaint: IRREGULAR HEARTBEAT Stated Complaint: AFIB History of Present Illness The patient is a 73 year old female who presents to the Emergency Room with complaints of possible atrial fibrillation. The patient states that she feels like she has been in and out of A. fib all day. She states she has felt weak and dizzy. She reports this is similar to episodes of atrial fibrillation in the past. She typically feels her pulse and it is rapid and irregular. She states she first developed symptoms yesterday morning but they resolved. She has symptoms this morning and was on the way here but then began to feel better and went home. Her symptoms returned and she had her drive her here. She reports feeling tired at this time. She has a history of atrial fibrillation and takes Xarelto. Her drafting clerk is Dr. Zambrano. She denies any chest pain, shortness of breath, focal weakness, headache, syncope, fevers or recent illness. Review of Systems A complete 10 point review of systems was reviewed with the patient with pertinent positives and negatives as per history of present illness. All else were negative. Past Medical/Surgical History Medical Problems: (1) AF (atrial fibrillation) (2) GERD (gastroesophageal reflux disease) (3) HTN (hypertension) (4) Migraine (5) Restless Legs Syndrome Surgical Problems: (1) S/P TKR (total knee replacement) Family History Stroke FATHER Social History Smoking Status: Never Smoker Drug Use: none Marital Status: Housing Status: lives with significant other Occupation Status: retired Current/Historical Medications Scheduled Amlodipine Besylate (Norvasc), 5 MG PO HS Calcium Carbonate (Calcium), 1,200 MG PO QAM Carvedilol (Carvedilol), 6.25 MG PO BID Chlorthalidone (Chlorthalidone), 25 MG PO QAM Cholecalciferol (Vitamin D3), 1,000 INTER.UNIT PO BID Hydralazine HCl (Hydralazine HCl), 1 TAB PO TID Magnesium Oxide (Mag-Ox), 400 MG PO BID Omeprazole (Prilosec), 1 CAP PO QAM Potassium Chloride Microencaps (Potassium Chloride Er), 20 MEQ PO QAM Ranitidine (Zantac), 150 MG PO BID Rivaroxaban (Xarelto), 20 MG PO PM Scheduled PRN Acyclovir (Zovirax), 200 MG PO Q4H PRN for Cold Sore(s) Albuterol Hfa (Ventolin Hfa), 2 PUFFS INH Q4H PRN for Allergy Symptoms or Cough Clonazepam (Clonazepam), 1 MG PO HS PRN for Anxiety or Restless Legs Mometasone Furoate (Nasal) (Mometasone Furoate), 2 SPRAYS LINA DAILY PRN for Allergy Symptoms Physical Exam Vital Signs Date Time Temp Pulse Resp B/P (MAP) Pulse Ox O2 Delivery O2 Flow Rate FiO2 01/27/18 16:07 72 18 137/88 98 01/27/18 14:33 68 18 96 01/27/18 14:31 139/76 01/27/18 14:12 156/88 01/27/18 14:03 66 18 95 01/27/18 14:01 155/80 01/27/18 13:52 63 01/27/18 13:31 134/79 01/27/18 12:37 36.5 65 18 176/81 99 Room Air Physical Exam VITALS: Vitals are noted on the nurse's note and reviewed by myself. Vital signs stable. GENERAL: This is a 73-year-old female, in no acute distress, nondiaphoretic, well-developed well-nourished. SKIN: The skin was without rashes. EARS: External auditory canals clear, tympanic membranes pearly dewey without erythema or effusion bilaterally. EYES: Pupils equal round and reactive to light and accommodation. MOUTH: Mucous membranes moist. Tonsils are not enlarged. Pharynx without erythema or exudate. HEART: Regular rate and rhythm without murmurs gallops or rubs. LUNGS: Clear to auscultation bilaterally without wheezes, rales or rhonchi. MUSCULOSKELETAL: Strength 5/5 throughout. NEURO: Patient was alert and oriented to person place and time. No focal neurological deficits. Medical Decision & Procedures Laboratory Results 01/27/18 12:50 Red Blood Count 4.78, Mean Corpuscular Volume 88.1, Mean Corpuscular Hemoglobin 31.2, Mean Corpuscular Hemoglobin Concent 35.4, Mean Platelet Volume 9.7, Neutrophils (%) (Auto) 57.8, Lymphocytes (%) (Auto) 24.5, Monocytes (%) (Auto) 13.7, Eosinophils (%) (Auto) 3.3, Basophils (%) (Auto) 0.5, Neutrophils # (Auto ) 3.37, Lymphocytes # (Auto) 1.43, Monocytes # (Auto) 0.80, Eosinophils # (Auto ) 0.19, Basophils # (Auto) 0.03 01/27/18 12:50 Test 01/27/18 12:50 01/27/18 15:32 White Blood Count 5.83 K/uL (4.8-10.8) Red Blood Count 4.78 M/uL (4.2-5.4) Hemoglobin 14.9 g/dL (12.0-16.0) Hematocrit 42.1 % (37-47) Mean Corpuscular Volume 88.1 fL (80-100) Mean Corpuscular Hemoglobin 31.2 pg (25-34) Mean Corpuscular Hemoglobin Concent 35.4 g/dl (32-36) Platelet Count 291 K/uL (130-400) Mean Platelet Volume 9.7 fL (7.4-10.4) Neutrophils (%) (Auto) 57.8 % Lymphocytes (%) (Auto) 24.5 % Monocytes (%) (Auto) 13.7 % Eosinophils (%) (Auto) 3.3 % Basophils (%) (Auto) 0.5 % Neutrophils # (Auto) 3.37 K/uL (1.4-6.5) Lymphocytes # (Auto) 1.43 K/uL (1.2-3.4) Monocytes # (Auto) 0.80 K/uL (0.11-0.59) Eosinophils # (Auto) 0.19 K/uL (0-0.5) Basophils # (Auto) 0.03 K/uL (0-0.2) RDW Standard Deviation 38.1 fL (36.4-46.3) RDW Coefficient of Variation 11.9 % (11.5-14.5) Immature Granulocyte % (Auto) 0.2 % Immature Granulocyte # (Auto) 0.01 K/uL (0.00-0.02) Anion Gap 7.0 mmol/L (3-11) Est Creatinine Clear Calc Drug Dose 70.9 ml/min Estimated GFR () 94.9 Estimated GFR (Non- 81.9 BUN/Creatinine Ratio 25.0 (10-20) Calcium Level 9.2 mg/dl (8.5-10.1) Magnesium Level 1.7 mg/dl (1.8-2.4) Total Bilirubin 0.5 mg/dl (0.2-1) Aspartate Amino Transf (AST/SGOT) 19 U/L (15-37) Alanine Aminotransferase (ALT/SGPT) 31 U/L (12-78) Alkaline Phosphatase 96 U/L (45-117) Troponin I < 0.015 ng/ml (0-0.045) Total Protein 7.7 gm/dl (6.4-8.2) Albumin 4.0 gm/dl (3.4-5.0) Globulin 3.7 gm/dl (2.5-4.0) Albumin/Globulin Ratio 1.1 (0.9-2) Thyroid Stimulating Hormone (TSH) 1.880 uIu/ml (0.300-4.500) Urine Color YELLOW Urine Appearance CLEAR (CLEAR) Urine pH 8.0 (4.5-7.5) Urine Specific [place] 1.005 (1.000-1.030) Urine Protein NEG (NEG) Urine Glucose (UA) NEG (NEG) Urine Ketones NEG (NEG) Urine Occult Blood NEG (NEG) Urine Nitrite NEG (NEG) Urine Bilirubin NEG (NEG) Urine Urobilinogen NEG (NEG) Urine Leukocyte Esterase TRACE (NEG) Urine WBC (Auto) 1-5 /hpf (0-5) Urine RBC (Auto) 0-4 /hpf (0-4) Urine Hyaline Casts (Auto) 0 /lpf (0-5) Urine Epithelial Cells (Auto) 0-5 /lpf (0-5) Urine Bacteria (Auto) NEG (NEG) Medications Administered Medications (Trade) Dose Ordered Sig/Rebecca Route Start Time Stop Time Status Last Admin Dose Admin Magnesium Oxide (Mag-Ox Tab) 400 mg NOW STAT PO 01/27/18 15:55 01/27/18 15:57 DC 01/27/18 16:04 400 MG Potassium Chloride (Klor-Con M10) 40 meq STK-MED ONCE .ROUTE 01/27/18 16:01 01/27/18 16:02 DC 01/27/18 16:04 40 MEQ ECG Per My Interpretation Indication: weakness Rate (beats per minute): 66 Rhythm: normal sinus Findings: 1st degree AV block, no acute ischemic change, no ectopy Change: no significant change Medical Decision Differential diagnosis includes atrial fibrillation, arrhythmia, electrolyte abnormality, dehydration, among others. The patient is a 73-year-old female who presents today stating that she feels like she has been in atrial fibrillation today. EKG shows a normal sinus rhythm with first-degree AV block, which is unchanged for the patient. Labs revealed no leukocytosis or anemia. Patient is slightly hypokalemic with potassium of 3.3 and magnesium is slightly low at 1.7. Urinalysis was not suggestive of infection. Troponin was negative. Patient was given oral doses of potassium and magnesium. She stated that she was feeling much better and would like to go home. She was advised to follow-up with her drafting clerk for a recheck. The patient was independently evaluated by Dr. Barksdale, ED attending physician, who agreed with my assessment and treatment plan. Based on the patient's presentation and work up, I feel the patient is stable for outpatient treatment. The patient was educated to return to the emergency department for any worsening of their current condition or new/concerning symptoms. She will follow up with her PCP and drafting clerk. Medication Reconcilliation Current Medication List: was personally reviewed by me Blood Pressure Screening Patient's blood pressure: Elevated blood pressure Blood pressure disposition: Elevated BP felt to be situational Impression Primary Impression: Heart palpitations Departure Information Dispostion Home / Self-Care Condition GOOD Referrals Tessie Pathak DO (PCP) Patient Instructions My [facility] Additional Instructions Your potassium and magnesium were slightly low today. These can be rechecked by your primary care provider. Make sure to rest and drink plenty of fluids. Contact your drafting clerk to schedule follow-up from today's visit. Return to the emergency department with any chest pain, shortness of breath, or worsening or new/concerning symptoms.
--- NOTE | 2018-01-27 13:42 | DIAGNOSTIC IMAGING REPORT ---
SINGLE VIEW CHEST CLINICAL HISTORY: Dizziness. Weakness. FINDINGS: An AP, portable, upright chest radiograph is compared to study dated 11/10/2017 and correlated with chest CT dated 06/06/2014. The examination is degraded by portable technique and patient rotation. The heart is top normal for projection and there is atherosclerotic calcification of the thoracic aorta. Chronic interstitial thickening is similar to previous. No airspace consolidation or large pleural effusion is seen. No pneumothorax is seen. The bony thorax is grossly intact. IMPRESSION: No acute cardiopulmonary abnormality. Electronically signed by: Kyle Huerta M.D. 01/27/2018 1:41 PM Dictated Date/Time: 01/27/2018 1:39 PM
[2018-01-27 13:56] LABS: ALKALINE PHOSPHATASE 96 U/L (45-117); ALT/SGPT 31 U/L (12-78); AST/SGOT 19 U/L (15-37); BLOOD UREA NITROGEN 18 mg/dl (7-18); CALCIUM 9.2 mg/dl (8.5-10.1); CARBON DIOXIDE 30 mmol/L (21-32); CREATININE 0.72 mg/dl (0.60-1.20); GLUCOSE 99 mg/dl (70-99); POTASSIUM 3.3 mmol/L (3.5-5.1); SODIUM 133 mmol/L (136-145); TOTAL PROTEIN 7.7 gm/dl (6.4-8.2)
[2018-01-27] MEDS ORDERED: POTASSIUM CHLORIDE 20 MEQ TABCR PO STA (15:55)
[2018-01-27] MEDS ORDERED: MAGNESIUM OXIDE 400 MG TAB PO STA (15:55)
[2018-01-27] MEDS ORDERED: POTASSIUM CHLORIDE 10 MEQ TABCR ONE (16:01)
[2018-01-27 16:07] VITALS: BP 137/88; PULSE 72; O2SAT 98
--- NOTE | 2018-01-28 01:38 | EMERGENCY ROOM VISIT NOTE ---
ED Visit Note First contact with patient: 13:01 I reviewed the patient's past medical history, medications, and visit nursing notes. I discussed the case with the physician junior assistant manager and agree with the findings and plan as documented in the physician assistants note.
== END 2018-01-27 16:09 | disposition home or self-care (01) ==
LOC: C.EDB 12:34 → C.EDD 16:09
DX: R00.2 Palpitations (principal); I10 Essential (primary) hypertension; K21.9 Gastro-esophageal reflux disease without esophagitis; Z79.01 Long term (current) use of anticoagulants; Z79.899 Other long term (current) drug therapy

== ENCOUNTER 2021-05-14 12:11 | Inpatient (IN) ==
[2021-05-14] MEDS ORDERED: ACETAMINOPHEN 500 MG TAB ONE (15:08)
[2021-05-14] MEDS ORDERED: fentaNYL citrate 100 MCG/2 ML VIAL IV PRN (15:33)
[2021-05-14] MEDS ORDERED: ONDANSETRON INJ 2 MG/ML 2 ML VIAL IV STA (15:33)
[2021-05-14] MEDS ORDERED: dexAMETHasone**PF** 10 MG/ML VIAL IV ONE (15:38)
--- NOTE | 2021-05-14 15:49 | Emergency Department Note ---
Impression & Plan Severe low back pain, Herniated lumbar intervertebral disc ED Provider Note INFORMANT: Patient and daughter ED PROVIDER(S): Phillip Teixeira MD CHIEF COMPLAINT: Back pain PLAN: Disposition: Admitted Condition: Good Outpatient prescription management: none Referral: None MEDICAL DECISION MAKING: Patient presented because of severe back pain that worsened secondary to lifting and caring for her ill . She has known degenerative disc disease with significant herniation. She is pending surgery. She was given Zofran and fentanyl for symptom control. IV Decadron was also given. I did consult with her spine surgeon, Dr. Little. Given her known disease and current problem he will admit the patient for further management. Patient was given her evening blood pressure medication. Triage Nursing notes reviewed and agree them. Vital Signs: reviewed and remarkable for hypertension Differential diagnosis: Musculoskeletal, disc herniation, fracture, metastatic disease, cord compression, discitis, sciatica, cauda equina, infection, aortic disease, renal colic, gastrointestinal, as well as other pathologies. Diagnostics interpreted by me: ECG: none Cardiac Monitoring: Cardiac monitoring ordered by me: The patient was placed on continuous cardiac monitoring and observed. It revealed a normal sinus rhythm at 81 beats per minute without ectopy or evidence of dysrhythmia. Imaging studies: Deferred HPI: The patient is a 76 year old female who presents to the Emergency Room with complaints of severe back pain. This started weeks ago but has exacerbated over the last few days and is in the lumbar region. It radiates down to both legs, laterally and anteriorly. The patient also notes the following associated symptoms, numbness in the same distribution as the pain. The patient has tried Tylenol for relieving factors. Current pain is rated as 8/10. Patient states th at she has been scheduled several times for surgery with Dr. Little but it got canceled secondary to the Covid pandemic. She was instructed to contact him when she gets to the ER. Pt denies LOC, headache, fevers, chills, diaphoresis, visual changes, neck pain, chest pain, breathing difficulties, nausea, vomiting, abdominal pain, melena, hematochezia, urinary symptoms, loss of bowel or bladder function, lymphadenopathy, rash, or other complaints. ROS: See above HPI for pertinent positives & negatives. A total of 10 systems reviewed and were otherwise negative. PAST MEDICAL HISTORY:See Below , degenerative disc disease PAST SURGICAL HISTORY:See Below, FAMILY HISTORY:See Below SOCIAL HISTORY:See Below, HOME MEDICATIONS:See Below ALLERGIES:See Below VITALS:See Below PHYSICAL EXAMINATION: GENERAL: Awake, alert, uncomfortable-appearing, in moderate distress HENT: Normocephalic, atraumatic. Oropharynx unremarkable. EYES: Normal conjunctiva. Sclera non-icteric. NECK: Inspection normal. Non-tender. Supple. No nuchal rigidity. FROM. No masses. RESPIRATORY: Clear to auscultation. No wheezes. No rales. Normal respiratory effort. CARDIAC: Normal rate. Normal rhythm. No murmurs. No rubs. Extremities warm and well perfused. Pulses equal. No JVD. GI: Soft, non-distended. No tenderness to palpation. No rebound or guarding. No masses. RECTAL: Deferred. MUSCULOSKELETAL: Atraumatic. Chest examination reveals no tenderness. The back is symmetrical on inspection without obvious abnormality. There is tenderness to palpation in the sciatic notch bilaterally. There is no CVA tenderness to palpation. No joint edema. LOWER EXTREMITIES: Calves are equal size bilaterally and non-tender. No edema. No discoloration. NEURO: Normal sensorium. No sensory or motor deficits noted. No saddle anesthesia. Positive straight leg raise. SKIN: No rash or jaundice noted. Phillip Teixeira MD Past Med/Surg History Medical History (Updated 05/14/21 @ 15:49 by Phillip Teixeira MD) AF (atrial fibrillation) (02/11/14) Follow with Dr Meng Dyslipidemia Per records GERD (gastroesophageal reflux disease) Well controlled and stable HTN (hypertension) Surgical History History of cardiac radiofrequency ablation for a fib and was successful Hx of bilateral cataract extraction Hx of colonoscopy Hx of knee surgery left knee, she states he did a freeze procedure with UOC S/P TKR (total knee replacement) left Family History Other Family history non-contributory Social History Smoking Status: Never smoker Second Hand Exposure: No; Hx Alcohol Use: No Hx Substance Use: No Preferred Language: Yakut Communication Ability: Effective Library Helper Required: No Beliefs That Will Affect Care: None marital status: Current Living Situation: Spouse Feels Safe at Home: Yes Assistive Devices: Denture - Upper, Denture - Lower and Glasses Allergies Allergies Allergy/AdvReac Type Severity Reaction Status Date / Time oxycodone Allergy Unknown adverse Verified 05/14/21 16:20 effects on blood pressure clonidine AdvReac Intermediate Unsure of Verified 05/14/21 16:20 reaction prednisone AdvReac Intermediate WEAKNESS Verified 05/14/21 16:20 lisinopril AdvReac Unknown cough Verified 05/14/21 16:20 morphine AdvReac Unknown ADVERSE Verified 05/14/21 16:20 EFFECTS OF BLOOD PRESSURE Home Meds Home Medications Medication Instructions Recorded Confirmed rivaroxaban 20 mg tablet (Xarelto) 20 mg PO QDD #0 11/10/17 05/14/21 albuterol sulfate 90 mcg/actuation 2 puff INHALATION Q4H PRN 05/03/18 05/14/21 aerosol inhaler (Ventolin HFA) calcium carbonate 600 mg calcium 600 mg PO QAM 05/03/18 05/14/21 (1,500 mg) tablet (Calcium) carvedilol 6.25 mg tablet 6.25 mg PO BID 05/03/18 05/14/21 chlorthalidone 25 mg tablet 25 mg PO QAM 05/03/18 05/14/21 cholecalciferol (vitamin D3) 25 1,000 unit PO BID 05/03/18 05/14/21 mcg (1,000 unit) capsule clonazepam 1 mg tablet 1 mg PO HS PRN 05/03/18 05/14/21 hydralazine 10 mg tablet 10 mg PO TID 05/03/18 05/14/21 amoxicillin 500 mg capsule 500 mg PO DAILY PRN 10/23/20 05/14/21 atorvastatin 10 mg tablet 10 mg PO HS 10/23/20 05/14/21 losartan 50 mg tablet 50 mg PO QAM 10/23/20 05/14/21 potassium chloride 10 mEq 10 meq PO QDL 10/23/20 05/14/21 tablet,extended release(part/cryst) valacyclovir 500 mg tablet 1,000 mg PO DAILY PRN 10/23/20 05/14/21 famotidine 40 mg tablet 40 mg PO HS 02/14/21 05/14/21 magnesium oxide 500 mg tablet 1,000 mg PO BIDM 05/14/21 05/14/21 sucralfate 1 gram tablet (Carafate) 1,000 mg PO AC 05/14/21 05/14/21 Results & Data (ED) Vital Signs Vital Signs - 24 hr 05/14/21 12:16 Temperature 36.7 C Temperature Source Skin Pulse Rate 81 Pulse Rhythm Regular Pulse Strength Normal Respiratory Rate 20 Respiratory Effort / Characteristics Non-Labored Spontaneous Respiratory Depth Normal Respiratory Pattern Regular Blood Pressure 138/72 Blood Pressure Mean 94 Pulse Oximetry 94 Oxygen Delivery Method Room Air Sepsis Recent Fever Within 48 Hours No Sepsis New/Unexplained Change in Mental Status N/A Sepsis Action Taken by Nursing No Action Required Laboratory Data Result diagrams: 05/14/21 16:00 05/14/21 16:00 Administered Medications Atorvastatin Calcium (Atorvastatin 10 Mg Tab) 10 mg PO PM YI Stop: 06/13/21 20:59 Last Admin: 05/14/21 21:28 Dose: 10 mg Documented by: [id number] Carvedilol (Carvedilol 6.25 Mg Tab) 6.25 mg PO BID YI Stop: 06/13/21 20:59 Last Admin: 05/14/21 21:28 Dose: 6.25 mg Documented by: [id number] Famotidine (Famotidine 40 Mg Tablet) 40 mg PO PM YI Stop: 06/13/21 20:59 Last Admin: 05/14/21 21:28 Dose: 40 mg Documented by: [id number] Fentanyl Citrate (Fentanyl Citrate 100 Mcg/2 Ml Vial) 50 mcg IV Q15M PRN PRN Reason: Pain Stop: 05/28/21 15:32 Last Admin: 05/14/21 16:30 Dose: 50 mcg Documented by: [id number] Hydralazine HCl (Hydralazine 10 Mg Tab) 10 mg PO TID YI Stop: 06/13/21 20:59 Last Admin: 05/14/21 21:29 Dose: 10 mg Documented by: [id number] Magnesium Oxide (Magnesium Oxide 400 Mg Tab) 400 mg PO BID YI Stop: 06/13/21 20:59 Last Admin: 05/14/21 21:29 Dose: 400 mg Documented by: [id number] Discontinued Medications Acetaminophen (Acetaminophen 500 Mg Tab) Confirm Administered Dose 1,000 mg .ROUTE .STK-MED ONE Stop: 05/14/21 15:09 Last Admin: 05/14/21 15:10 Dose: 1,000 mg Documented by: [id number] Carvedilol (Carvedilol 6.25 Mg Tab) 6.25 mg PO NOW STA Stop: 05/14/21 17:40 Last Admin: 05/14/21 18:36 Dose: 6.25 mg Documented by: [id number] Dexamethasone Sodium Phosphate (DexamethasonePf 10 Mg/Ml Vial) 10 mg IV NOW ONE Stop: 05/14/21 15:39 Last Admin: 05/14/21 16:30 Dose: 10 mg Documented by: [id number] Hydralazine HCl (Hydralazine 10 Mg Tab) 10 mg PO NOW STA Stop: 05/14/21 17:40 Last Admin: 05/14/21 18:35 Dose: 10 mg Documented by: [id number] Sodium Chloride (Nss 1000ml) 1,000 mls @ 75 mls/hr IV .[id number] YI Stop: 06/13/21 18:18 Last Admin: 05/14/21 19:46 Dose: Not Given Documented by: [id number] Losartan Potassium (Losartan Potassium 50 Mg Tab) 50 mg PO NOW STA Stop: 05/14/21 17:40 Last Admin: 05/14/21 18:35 Dose: 50 mg Documented by: [id number] Ondansetron HCl (Ondansetron Inj 2 Mg/Ml 2 Ml Vial) 4 mg IV NOW STA Stop: 05/14/21 15:34 Last Admin: 05/14/21 16:30 Dose: 4 mg Documented by: [id number] Potassium Chloride (Potassium Chloride Crtab 20 Meq Tabcr) 40 meq PO NOW STA Stop: 05/14/21 19:26 Last Admin: 05/14/21 20:27 Dose: 40 meq Documented by: [id number] Potassium Chloride (Potassium Chloride Crtab 20 Meq Tabcr) 20 meq PO NOW STA Stop: 05/14/21 19:49 Last Admin: 05/14/21 20:27 Dose: 20 meq Documented by: [id number] Discharge Plan Visit Data Chief Complaint: Back Injury/Pain Stated Complaint: BACK SPASMS & NUMBNESS IN BOTH LEGS TO KNEES ED Provider: Phillip Teixeira Discharge Problem: Severe low back pain, Herniated lumbar intervertebral disc Patient Disposition: Admitted As Inpatient Discharge Instructions Interventions: ED Discharge Assessment Last Done: 05/14/21 17:54
[2021-05-14 16:13] LABS: Basophils # (auto) 0.03 K/uL (0-0.2); Basophils % (auto) 0.4 %; Eosinophils # (auto) 0.38 K/uL (0-0.5); Eosinophils % (auto) 5.5 %; Hematocrit (blood only) 38.3 % (37-47); Hemoglobin 13.3 g/dL (12.0-16.0); Immature Granulocytes # (auto) 0.01 K/uL (0.00-0.02); Immature Granulocytes % (auto) 0.1 %; Lymphocytes % (auto) 37.3 %; Mean Corpuscular Hemoglobin 30.9 pg (25-34); Mean Corpuscular Hgb Conc 34.7 g/dL (32-36); Mean Corpuscular Volume 89.1 fL (80-100); Mean Platelet Volume 9.5 fL (7.4-10.4); Monocytes # (auto) 1.07 K/uL (0.11-0.59); Monocytes % (auto) 15.4 %; Neutrophils # (auto) 2.88 K/uL (1.4-6.5); Neutrophils % (auto) 41.3 %; Platelet Count 316 K/uL (130-400); RDW Coefficient of Variation 11.4 % (11.5-14.5); White Blood Count 6.97 K/uL (4.8-10.8)
[2021-05-14 16:32] LABS: Albumin Level 3.6 gm/dl (3.4-5.0); BUN Creatinine Ratio 16.5 (10-20); Creatinine Clr Calc Pharmacy 69.7 ml/min; Est GFR (African American) 94.6 ml/min; Est GFR (Non-African American) 81.6 ml/min; Potassium 3.4 mmol/L (3.5-5.1)
[2021-05-14 16:35] LABS: Albumin Globulin Ratio 1.1 (0.9-2); Bilirubin,Total 0.7 mg/dl (0.2-1); Globulin 3.3 gm/dl (2.5-4.0); Total Protein 6.9 gm/dl (6.4-8.2)
[2021-05-14] MEDS ORDERED: carvediloL 6.25 MG TAB PO STA (17:39)
[2021-05-14] MEDS ORDERED: hydrALAZINE 10 MG TAB PO STA (17:39)
[2021-05-14] MEDS ORDERED: LOSARTAN POTASSIUM 50 MG TAB PO STA (17:39)
[2021-05-14] MEDS ORDERED: NALOXONE HCL 0.4 MG/1 ML VIAL/CARP IV PRN (18:19)
[2021-05-14] MEDS ORDERED: LORazepam 0.5 MG TAB PO PRN (18:19)
[2021-05-14] MEDS ORDERED: diphenhydrAMINE Capsule 25 MG CAP PO PRN (18:19)
[2021-05-14] MEDS ORDERED: HYDROCODONE/ACETAMOPHEN 5/325MG TAB PO PRN (18:19)
[2021-05-14] MEDS ORDERED: LORazepam 0.5 MG/1 ML VIAL IV PRN (18:19)
[2021-05-14] MEDS ORDERED: METOCLOPRAMIDE HCL INJ 5 MG/ML 2 ML VIAL IV PRN (18:19)
[2021-05-14] MEDS ORDERED: ONDANSETRON INJ 2 MG/ML 2 ML VIAL IV PRN (18:19)
[2021-05-14] MEDS ORDERED: ACETAMINOPHEN 1,000 MG/100 ML VIAL IV PRN (18:19)
[2021-05-14] MEDS ORDERED: traMADol HCL 50 MG TABLET PO PRN (18:19)
[2021-05-14] MEDS ORDERED: PROMETHAZINE HCL 12.5 MG in SODIUM CHLORIDE 0.9% 50 ML IV PRN (18:19)
[2021-05-14] MEDS ORDERED: MAGNESIUM HYDROXIDE SUSP 30 ML UDC PO PRN (18:19)
[2021-05-14] MEDS ORDERED: hydrOXYzine HCl 25 MG TAB PO PRN (18:19)
[2021-05-14] MEDS ORDERED: SOD PHOSPHATE/SOD BIPHOSPHATE ENEMA 132 ML BTL PR PRN (18:19)
[2021-05-14] MEDS ORDERED: SODIUM CHLORIDE 0.9% 1000ML 1,000 ML IV SCH (18:19)
[2021-05-14] MEDS ORDERED: ACETAMINOPHEN 500 MG TAB PO PRN (18:19)
[2021-05-14] MEDS ORDERED: ALUMINUM/MAGNESIUM SUSP 30 ML UDC PO PRN (18:19)
[2021-05-14] MEDS ORDERED: HYDROmorphone INJ 0.5 MG/0.5 ML SYR IV PRN (18:19)
[2021-05-14] MEDS ORDERED: ONDANSETRON 4 MG OD TAB PO PRN (18:19)
[2021-05-14] MEDS ORDERED: HYDROmorphone INJ 1 MG/ML SYRINGE IV PRN (18:19)
[2021-05-14] MEDS ORDERED: POTASSIUM CHLORIDE CRTAB 20 MEQ TABCR PO STA ×2 (19:25→19:48)
[2021-05-14] MEDS ORDERED: clonazePAM 1 MG TAB PO PRN (19:27)
[2021-05-14] MEDS ORDERED: hydrALAZINE HCL 20 MG/ML VIAL IV PRN (19:29)
[2021-05-14 20:08] LABS: Appearance Urine Clear (Clear); Bilirubin Urine Negative (Negative); Blood Urine Negative (Negative); Color Urine Yellow; Glucose Urine UA Negative (Negative); Ketones Urine Negative (Negative); Leukocyte Esterase Urine Negative (Negative); Nitrite Urine Negative (Negative); Protein Urine Negative (Negative); Specific Gravity Urine 1.013 (1.000-1.030); Urobilinogen Urine Negative (Negative)
--- NOTE | 2021-05-14 20:30 | Consultation Report ---
DATE OF CONSULT: 05/14/2021. CHIEF COMPLAINT: Back pain. HISTORY OF PRESENT ILLNESS: This is a 76-year-old female with past medical history significant for hypertension, diastolic dysfunction, paroxysmal atrial fibrillation, GERD, restless legs syndrome, status post ablation of atrial fibrillation who presents with severe back pain. The patient has back pain for a long time, since January, it is getting worse. She was supposed to get back surgery, but cancelled many appointments. Recently, her had surgery in [place] and she has to walk a lot, which brought a lot of spasms to her back and she came to the ER today and there is plan for surgery tomorrow. Currently, pain is under control. Initially had some numbness and tingliness in the legs, but that is improved now. No incontinence of bowel and bladder.Resting comfortably. Denies any chest pain, no shortness of breath, no cough, no fever, no chills. Had some headache earlier. No dizziness, no blurred visions, no earache, no runny nose, no sore throat, no difficulty swallowing. Appetite is okay. No nausea, no abdominal pain. Normal bowel and bladder movements. ALLERGIES: OXYCODONE, CLONIDINE, PREDNISONE, LISINOPRIL, MORPHINE. PAST MEDICAL HISTORY: As mentioned above. PAST SURGICAL HISTORY: Colonoscopy, EGDs, atrial ablation, left knee arthroscopy, cataract surgery. MEDICATIONS: The patient is on albuterol 2 puffs inhalation q. 4 hours p.r.n., amoxicillin 500 mg p.o. daily p.r.n., atorvastatin 10 mg p.o. at bedtime, calcium carbonate 600 mg p.o. a.m., Coreg 6.25 mg p.o. b.i.d., chlorthalidone 25 mg p.o. a.m., vitamin D 1000 units p.o. b.i.d., Klonopin 1 mg p.o. at bedtime p.r.n., famotidine 40 mg p.o. at bedtime, hydralazine 10 mg p.o. t.i.d., losartan 50 mg p.o. a.m., magnesium oxide as directed, potassium chloride 10 mEq p.o. daily, Xarelto 20 mg p.o. daily, sucralfate 1 gram p.o. a.c., valacyclovir 1 g p.o. daily p.r.n. FAMILY HISTORY: Significant for sister skin cancer, breast cancer. Sister has colon cancer. Brother has hypertension. Mother had hypertension. Father had Lyme disease, father had stroke. SOCIAL HISTORY: , no smoking. Alcohol, 2 drinks a week. No drug use. REVIEW OF SYSTEMS: As per HPI. Rest of review of systems is negative. PHYSICAL EXAMINATION: GENERAL: The patient is of moderate build, not in acute distress. VITAL SIGNS: Temperature 36.6, pulse 72, respirations 16, blood pressure 181/91, oxygen 96% on room air. HEENT: Atraumatic. NECK: No JVD. No neck masses seen. CARDIOVASCULAR: S1 and S2 heard. Regular rate and rhythm. No murmur, no gallop. RESPIRATORY: Normal AP diameter. No accessory muscle use. No wheezing, no crackles. ABDOMEN: Soft, bowel sounds present, nontender, no distention. CENTRAL NERVOUS SYSTEM: Cranial nerves II through XII are grossly intact, nonfocal. EXTREMITIES: No edema, no erythema. LABORATORY DATA: WBC 6.9, hemoglobin 13.3, hematocrit 38.3, platelets 316. Sodium 137, potassium 3.4, chloride 102, bicarbonate 26, BUN 12, creatinine 0.7, serum glucose 93, calcium 9, total bilirubin 0.7, AST 17, ALT 20, alkaline phosphatase 69. SARS-CoV-2 PCR negative. ASSESSMENT AND PLAN: This is a 76-year-old female who presents with severe back pain. 1. Severe back pain. Patient had plan for back surgery in the past, but cancelled, Seems she was cleared for surgery in 02/2021. Currently, planned for surgery tomorrow. We will get an EKG and a chest x-ray. Labs are okay. If ekg and cxr ok patient should be at acceptable risk ton proceed with surgery.. Post surgical management as per Orthopedics. Pain control as per Orthopedics. 2. Hypertension. Continue home medication of losartan, hydrochlorothiazide, Coreg and chlorthalidone. We will monitor her blood pressure. 3. History of atrial fibrillation status post of ablation. Currently on rate control with Coreg. Xarelto is on hold, restart Xarelto as per Orthopedics. 4. History of chronic diastolic congestive heart failure. Monitor for any volume overload. The patient is on chlorthalidone.Also monitor potassium levels as patient is on chlorthalidone. 5. Restless legs syndrome on Klonopin p.r.n. 6. Hyperlipidemia on statin. 7. Deep venous thrombosis prophylaxis. DISPOSITION: As per Orthopedics. Job ID: [id number] MTDD
[2021-05-14] MEDS: FAMOTIDINE 40 MG TABLET PO SCH (21:28)
[2021-05-14] MEDS: ATORVASTATIN 10 MG TAB PO SCH (21:28)
[2021-05-14] MEDS: carvediloL 6.25 MG TAB PO SCH (21:28)
[2021-05-14] MEDS: MAGNESIUM OXIDE 400 MG TAB PO SCH (21:29)
[2021-05-14] MEDS: hydrALAZINE 10 MG TAB PO SCH (21:29)
[2021-05-15] MEDS ORDERED: POTASSIUM CHLORIDE 40 MEQ in SODIUM CHLORIDE 0.9% 1000ML 1,000 ML IV SCH (00:01)
[2021-05-15] MEDS ORDERED: ceFAZolin 2000MG 2,000 MG/15 ML SYR IV SCH (06:00)
[2021-05-15] MEDS: hydrALAZINE 10 MG TAB PO SCH ×3 (07:36→20:01)
[2021-05-15] MEDS: MAGNESIUM OXIDE 400 MG TAB PO SCH ×2 (07:36→19:59)
[2021-05-15] MEDS: carvediloL 6.25 MG TAB PO SCH ×2 (07:37→20:00)
[2021-05-15] MEDS: LOSARTAN POTASSIUM 50 MG TAB PO SCH (07:37)
--- NOTE | 2021-05-15 07:58 | History & Physical Report ---
Date of Service May 15, 2021 Assessment & Plan (1) Neurogenic claudication due to lumbar spinal stenosis: Plan: Assessment lumbar spinal stenosis with spondylolisthesis. Plan at this time patient has known severe spinal stenosis with incapacitating neurogenic cl audication. Pain is severe and she is unable to undergo activities of daily living. Socially recommending lumbar decompression and fusion L3-S1. Risk benefits pros cons alternatives were outlined in detail. Admission and Anticipated Discharge Date Admission Date: May 14, 2021 History of Present Illness Chief Complaint: Back and bilateral leg pain with weakness Primary Care Provider: Tessie Pathak DO This is a 68-year-old female well-known to us this is a study decline in status with known severe spinal stenosis. Is been progressive in nature. She now has severe pain bilateral buttocks extending down the left greater than right leg. Limits her ability to stand and ambulate any distance. Allergies Allergy/AdvReac Type Severity Reaction Status Date / Time oxycodone Allergy Unknown adverse Verified 05/14/21 16:20 effects on blood pressure clonidine AdvReac Intermediate Unsure of Verified 05/14/21 16:20 reaction prednisone AdvReac Intermediate WEAKNESS Verified 05/14/21 16:20 lisinopril AdvReac Unknown cough Verified 05/14/21 16:20 morphine AdvReac Unknown ADVERSE Verified 05/14/21 16:20 EFFECTS OF BLOOD PRESSURE Home Medications Medication Instructions Recorded Confirmed Type rivaroxaban 20 mg tablet (Xarelto) 20 mg PO QDD #0 11/10/17 05/14/21 History albuterol sulfate 90 mcg/actuation 2 puff INHALATION Q4H PRN 05/03/18 05/14/21 History aerosol inhaler (Ventolin HFA) calcium carbonate 600 mg calcium 600 mg PO QAM 05/03/18 05/14/21 History (1,500 mg) tablet (Calcium) carvedilol 6.25 mg tablet 6.25 mg PO BID 05/03/18 05/14/21 History chlorthalidone 25 mg tablet 25 mg PO QAM 05/03/18 05/14/21 History cholecalciferol (vitamin D3) 25 1,000 unit PO BID 05/03/18 05/14/21 History mcg (1,000 unit) capsule clonazepam 1 mg tablet 1 mg PO HS PRN 05/03/18 05/14/21 History hydralazine 10 mg tablet 10 mg PO TID 05/03/18 05/14/21 History amoxicillin 500 mg capsule 500 mg PO DAILY PRN 10/23/20 05/14/21 History atorvastatin 10 mg tablet 10 mg PO HS 10/23/20 05/14/21 History losartan 50 mg tablet 50 mg PO QAM 10/23/20 05/14/21 History potassium chloride 10 mEq 10 meq PO QDL 10/23/20 05/14/21 History tablet,extended release(part/cryst) valacyclovir 500 mg tablet 1,000 mg PO DAILY PRN 10/23/20 05/14/21 History famotidine 40 mg tablet 40 mg PO HS 02/14/21 05/14/21 History magnesium oxide 500 mg tablet 1,000 mg PO BIDM 05/14/21 05/14/21 History sucralfate 1 gram tablet (Carafate) 1,000 mg PO AC 05/14/21 05/14/21 History Past Med/Surg History Medical History (Updated 05/15/21 @ 07:57 by Enrico Little DO) AF (atrial fibrillation) (02/11/14) Follow with Dr Meng Dyslipidemia Per records GERD (gastroesophageal reflux disease) Well controlled and stable HTN (hypertension) Surgical History History of cardiac radiofrequency ablation for a fib and was successful Hx of bilateral cataract extraction Hx of colonoscopy Hx of knee surgery left knee, she states he did a freeze procedure with UOC S/P TKR (total knee replacement) left Family History Other Family history non-contributory Social History Smoking Status: Never smoker Second Hand Exposure: No; Hx Alcohol Use: No Hx Substance Use: No Preferred Language: Japanese Communication Ability: Effective Heart Doctor Required: No Beliefs That Will Affect Care: None marital status: Current Living Situation: Spouse Feels Safe at Home: Yes Assistive Devices: Denture - Upper, Denture - Lower and Glasses Physical Exam Physical Exam: On exam she progressed to lie supine at pain relief. She exhibits reasonable strength with plantar flexion dorsiflexion extensor hallucis longus quadriceps. Sensory is intact. Results & Data ([facility]) Vital Signs (Past 12 Hours) Vital Signs Temp Pulse Resp BP Pulse Ox 05/15/21 07:36 36.5 C 74 16 153/76 H 95 05/14/21 23:47 36.5 C 82 18 119/69 92 05/14/21 21:05 36.4 C L 74 16 138/75 94 Code Status & VTE Plan VTE Prophylaxis Plan VTE Prophylaxis will be ordered: Yes
--- NOTE | 2021-05-15 08:40 | Hospitalist Progress Note ---
Date of Service May 15, 2021 Assessment & Plan (1) Neurogenic claudication due to lumbar spinal stenosis: Plan: - Plan for surgery today per Dr. Little for continued chronic back pain which has acutely worsened. She has been medically cleared with EKG and chr - Pain management, bowel regimen and DVT ppx per the primary team - PT/OT consults after surgery - Follow CBC to monitor for acute blood loss (2) AF (atrial fibrillation): Plan: - Hx of such, s/p ablation, Continue rate control with Coreg - Holding xarelto, resume per ortho (3) HTN (hypertension): Plan: - Continnue losartan, NCTZ, coreg and cholothalidone. - BP slightly elevated this morning prior to med administration (4) GERD (gastroesophageal reflux disease): Plan: - Chronic, stable (5) Restless leg syndrome: Plan: - May continue klonopin prn (6) HLD (hyperlipidemia): Plan: - Cont statin therapy DVT ppx: - teds, scds, holding Xarelto CODE: Full code Dispo: From home, likely to remain in the hospital x 1-2 days Thank you for involving us in the care of Ms. Dumont. Please do not hesitate to call with questions or concerns. At this time medicine service will follow along. Admission and Anticipated Discharge Date Admission Date: May 14, 2021 Supervising Physician Co-Signing Physician Notes Patient was lying in bed, room air, NAD, no new acute events overnight. Patient reports chronic back pain. Patient denies headache/dizziness/chest pain/palpitation/other review of symptoms. This is a 76-year-old lady with past medical history of HLD, restless leg syndrome, neurogenic claudication due to lumbar spinal stenosis, severe low back pain, herniated lumbar intervertebral discs, migraine, GERD, hypertension, A. fib on Xarelto, was admitted for elective spine surgery on 05/15. For surgery today per orthopedics which is the primary team. After surgery, incentive spirometry/PT OT consult/CBC daily/BMP next morning. Resume Xarelto per primary team. Caution with antihypertensive medication post surgery as there may be drop in blood pressure. Continue to monitor. Upon examination: GENERAL: Alert and oriented x3. NAD, on RA. HEENT: No pallor, no icterus. Pupils equal, round and reactive to light. Oral mucosa moist. NECK: No JVD, no neck masses. HEART: S1 and S2 heard. Regular rate and rhythm. Systolic murmur over pulmonic and aortic area,, no gallop. RESPIRATORY SYSTEM: Normal AP diameter. No accessory muscle use. No wheezing, no crackles. ABDOMEN: Soft, bowel sounds present, nontender, no distention. CENTRAL NERVOUS SYSTEM: Alert and oriented x3. No facial droop. Speech is clear. Obeys simple commands. Moves extremities. EXTREMITIES: No edema, no erythema seen. I have seen and examined the patient and have discussed the case with the pr ovider above. I agree with the assessment and plan as stated. Results & Data Results & Data ([facility]) Vital Signs (Past 12 Hours) Vital Signs Temp Pulse Resp BP Pulse Ox 05/15/21 07:36 36.5 C 74 16 153/76 H 95 05/14/21 23:47 36.5 C 82 18 119/69 92 05/14/21 21:05 36.4 C L 74 16 138/75 94
[2021-05-15] MEDS: PANTOprazole 40 MG TAB PO SCH (08:55)
[2021-05-15] MEDS ORDERED: POTASSIUM CHLORIDE 10 MEQ TABCR PO SCH (09:00)
[2021-05-15] MEDS ORDERED: CHLORTHALIDONE 25 MG TAB PO SCH (09:00)
--- NOTE | 2021-05-15 09:12 | Anesthesiology Consultation ---
Date of Service May 15, 2021 History Surgery Operation Date: 05/15/21 11:50 Proposed Procedures p L3-S1 Decompression Fusion - Enrico Little DO Height/Weight Height: 5 ft 6 in Weight: 80 kg Allergies Allergy/AdvReac Type Severity Reaction Status Date / Time oxycodone Allergy Unknown adverse Verified 05/14/21 16:20 effects on blood pressure clonidine AdvReac Intermediate Unsure of Verified 05/14/21 16:20 reaction prednisone AdvReac Intermediate WEAKNESS Verified 05/14/21 16:20 lisinopril AdvReac Unknown cough Verified 05/14/21 16:20 morphine AdvReac Unknown ADVERSE Verified 05/14/21 16:20 EFFECTS OF BLOOD PRESSURE Medications Home Medications Medication Instructions Recorded Confirmed Last Taken rivaroxaban 20 mg tablet (Xarelto) 20 mg PO QDD #0 11/10/17 05/14/21 05/13/21 albuterol sulfate 90 mcg/actuation 2 puff INHALATION Q4H PRN 05/03/18 05/14/21 05/10/21 aerosol inhaler (Ventolin HFA) calcium carbonate 600 mg calcium 600 mg PO QAM 05/03/18 05/14/21 05/14/21 (1,500 mg) tablet (Calcium) carvedilol 6.25 mg tablet 6.25 mg PO BID 05/03/18 05/14/21 05/14/21 chlorthalidone 25 mg tablet 25 mg PO QAM 05/03/18 05/14/21 05/14/21 cholecalciferol (vitamin D3) 25 1,000 unit PO BID 05/03/18 05/14/21 05/14/21 mcg (1,000 unit) capsule clonazepam 1 mg tablet 1 mg PO HS PRN 05/03/18 05/14/21 05/13/21 hydralazine 10 mg tablet 10 mg PO TID 05/03/18 05/14/21 05/14/21 amoxicillin 500 mg capsule 500 mg PO DAILY PRN 10/23/20 05/14/21 Unknown atorvastatin 10 mg tablet 10 mg PO HS 10/23/20 05/14/21 05/13/21 losartan 50 mg tablet 50 mg PO QAM 10/23/20 05/14/21 05/14/21 potassium chloride 10 mEq 10 meq PO QDL 10/23/20 05/14/2121 tablet,extended release(part/cryst) valacyclovir 500 mg tablet 1,000 mg PO DAILY PRN 10/23/20 05/14/21 Unknown famotidine 40 mg tablet 40 mg PO HS 02/14/21 05/14/21 05/13/21 magnesium oxide 500 mg tablet 1,000 mg PO BIDM 05/14/21 05/14/21 05/14/21 sucralfate 1 gram tablet (Carafate) 1,000 mg PO AC 05/14/21 05/14/21 05/14/21 Active Medications Generic Name Dose Route Start Last Admin Trade Name Freq PRN Reason Stop Dose Admin Atorvastatin Calcium 10 mg 05/14/21 21:00 05/14/21 21:28 Atorvastatin 10 Mg Tab PO 06/13/21 20:59 10 mg PM YI Administration Carvedilol 6.25 mg 05/14/21 21:00 05/15/21 07:37 Carvedilol 6.25 Mg Tab PO 06/13/21 20:59 6.25 mg BID YI Administration Famotidine 40 mg 05/14/21 21:00 05/14/21 21:28 Famotidine 40 Mg Tablet PO 06/13/21 20:59 40 mg PM YI Administration Fentanyl Citrate 50 mcg 05/14/21 15:33 05/14/21 16:30 Fentanyl Citrate 100 Mcg/2 Ml Vial IV 05/28/21 15:32 50 mcg Q15M PRN Administration Pain Hydralazine HCl 10 mg 05/14/21 21:00 05/15/21 07:36 Hydralazine 10 Mg Tab PO 06/13/21 20:59 10 mg TID YI Administration Potassium Chloride 40 meq/ 1,020 mls @ 50 mls/hr 05/15/21 00:01 05/14/21 23:50 Sodium Chloride IV 06/14/21 00:00 50 mls/hr .[id number] YI Administration Losartan Potassium 50 mg 05/15/21 09:00 05/15/21 07:37 Losartan Potassium 50 Mg Tab PO 06/14/21 08:59 50 mg QAM YI Administration Magnesium Oxide 400 mg 05/14/21 21:00 05/15/21 07:36 Magnesium Oxide 400 Mg Tab PO 06/13/21 20:59 400 mg BID YI Administration Pantoprazole Sodium 40 mg 05/15/21 09:00 05/15/21 08:55 Pantoprazole 40 Mg Tab PO 06/14/21 08:59 40 mg QAM YI Administration NPO Date Last Intake of Fluids: 05/15/21 Time Last Intake of Fluids: 07:36 Last Intake of Fluids Comment: sip with meds Date Last Intake of Solids: 05/14/21 Past Medical History Medical History AF (atrial fibrillation) (02/11/14) Follow with Dr Meng Dyslipidemia Per records GERD (gastroesophageal reflux disease) Well controlled and stable HTN (hypertension) Past Family History Family History Other Family history non-contributory Past Surgical History Surgical History History of cardiac radiofrequency ablation for a fib and was successful Hx of bilateral cataract extraction Hx of colonoscopy Hx of knee surgery left knee, she states he did a freeze procedure with UOC S/P TKR (total knee replacement) left Social History Smoking Status: Never smoker Hx Alcohol Use: No Alcohol type: wine alcohol intake frequency: a few times a week Hx Substance Use: No substance use type: does not use Physical Exam Vital Signs Last Vital Signs Temp 36.5 C 05/15/21 07:36 Pulse 74 05/15/21 07:36 Resp 16 05/15/21 07:36 BP 153/76 H 05/15/21 07:36 Pulse Ox 95 05/15/21 07:36 Testing Laboratory Results 05/14/21 16:00 05/14/21 16:00 Urine Color Yellow 05/14/21 19:48 Urine Appearance Clear (Clear) 05/14/21 19:48 Urine pH 8.0 (4.5-7.5) H 05/14/21 19:48 Ur Specific [place] 1.013 (1.000-1.030) 05/14/21 19:48 Urine Protein Negative (Negative) 05/14/21 19:48 Urine Glucose (UA) Negative (Negative) 05/14/21 19:48 Urine Ketones Negative (Negative) 05/14/21 19:48 Urine Nitrite Negative (Negative) 05/14/21 19:48 Ur Leukocyte Esterase Negative (Negative) 05/14/21 19:48 Electrocardiogram Date: 02/15/21 Findings: + NSR @ (73) Chest X-Ray Date: 02/15/21 Findings: + NAD Echocardiogram Date: 04/15/20 EF: 64% LV Function: normal Valvular Disease: + no significant valvular disease mild diastolic dysfunction Stress Test Date: 07/16/17 Type: nuclear Findings: + WNL Other Testing Patient seen by cardiology 02/17/2021= seen for cardio preoperative evaluationscheduled to undergo spinal surgery. Patient had repeat ZIO monitor at last visit secondary to complaints of palpitationssince that time has no degree improvement in symptoms. No recent events. Stable cardiac symptoms. No sustained/recurrent A. fib.Remains anticoagulated on Xareltoacceptable to hold for 3 days in the perioperative setting. Continue carvedilol. Recent echo showed preserved LV function without significant valvular heart disease. Normal EKG today. "No further cardiac testing is warranted at this time. She is considered low to moderate risk for perioperative cardiac complications, the highest risk being recurrent A. fib in the postop setting." Patient is aware of cardiac and surgical risk and wishes to proceed due to significant back pain.
[2021-05-15] MEDS ORDERED: MIDAZOLAM HCL 1 MG/ML 2ML VIAL ONE (11:24)
[2021-05-15] MEDS ORDERED: fentaNYL citrate 100 MCG/2 ML VIAL ONE ×2 (11:25→13:14)
--- NOTE | 2021-05-15 12:09 | History & Physical Bridge Note ---
Date of Service May 15, 2021 History & Physical Bridge Note I have examined the patient, reviewed the History & Physical and in the interval since the performance of the History & Physical I have noted the following changes of clinical significance: no changes noted L3-S1 decompression fusion
[2021-05-15] MEDS ORDERED: ATROPINE SULFATE 0.1 MG/ML 10ML SYR IV PRN (12:22)
[2021-05-15] MEDS ORDERED: ePHEDrine sulfate 50 MG/ML AMP IV PRN (12:22)
[2021-05-15] MEDS ORDERED: fentaNYL citrate 100 MCG/2 ML VIAL IV PRN (12:22)
[2021-05-15] MEDS ORDERED: HYDROmorphone INJ 2 MG/ML SYR/VIAL IV PRN (12:22)
[2021-05-15] MEDS ORDERED: ONDANSETRON INJ 2 MG/ML 2 ML VIAL IV PRN ×2 (12:22→16:48)
[2021-05-15] MEDS ORDERED: BUPIVACAINE 0.5 % 5 MG/1 ML MPF 30ML VIAL ONE (12:28)
[2021-05-15] MEDS ORDERED: EPINEPHrine INJ 1 MG/ML AMP ONE (12:28)
[2021-05-15] MEDS ORDERED: PROPOFOL IV EMULSION 10 MG/ML 20 ML VIAL IV ONE (13:13)
[2021-05-15] MEDS ORDERED: ROCURONIUM BROMIDE 10 MG/ML 5 ML VIAL IV ONE (13:13)
[2021-05-15] MEDS ORDERED: DEXAMETHASONE SOD INJ 4 MG/ML VIAL ONE (13:13)
[2021-05-15] MEDS ORDERED: LIDOCAINE 2% 2 ML VIAL/AMP(20MG/ML) INFIL ONE (13:13)
[2021-05-15] MEDS ORDERED: GLYCOPYRROLATE 0.2 MG/ML VIAL ONE (13:13)
[2021-05-15] MEDS ORDERED: NEOSTIGMINE METHYLSULFATE 1 MG/ML 10ML VIAL ONE (13:13)
[2021-05-15] MEDS ORDERED: ONDANSETRON INJ 2 MG/ML 2 ML VIAL ONE (13:13)
[2021-05-15] MEDS ORDERED: FLOSEAL HEMOSTATIC MATRIX 10ML TOP ONE (13:18)
[2021-05-15] MEDS ORDERED: PHENYLEPHRINE 100MCG/ML 5ML SYR ONE (13:29)
[2021-05-15] MEDS ORDERED: PHENYLEPHRINE HCL 10 MG/ML VIAL ONE (14:44)
--- NOTE | 2021-05-15 15:00 | Operative Report ---
Post Operative Report Pre & Post Diagnosis Operation Date: 05/15/21 11:50 Pre-Op Diagnosis: Neurogenic Claudication Due to Lumbar Spinal Stenosis Post-Op Diagnosis: Neurogenic Claudication Due to Lumbar Spinal Stenosis I identified the patient and participated in the time-out.: Yes Procedure Operation Date: 05/15/21 11:50 Actual Procedures #1 lumbar decompression bilateral medial facetectomies and foraminotomies L3-4, L4-5 and L5-S1. #2 posterior spinal fusion L3-4, L4-5 L5-S1. #3 placement posterior segmental instrumentation L3-S1. #4 interbody fusion L3-4, L4-5 and L5-S1. #5 placement peek cage 12 x 22 mm at L3-L4, 13 x 22 mm at L4-5, and 10 x 22 mm L5-S1. 6 placement locally harvested morselized autograft in the posterior gutters. #7 placement infuse collagen sponge, master graft in the posterior gutters and I factor interbody space. Surgeon Enrico Little, Roofer [employer] Yulia Gonsaelz Estimated Blood Loss 250 Findings Consistent with Post-Op Diagnosis Specimens None Indications This is a 68-year-old female presents with above-mentioned diagnosis after failing course of nonoperative care she is here for the above-mentioned procedure. Description of Procedure Patient met with identified informed consent obtained. Patient was then taken to the operative suite underwent ablation placed in a prone position the [place] table top Ubaldo frame. All bony prominences well-padded eyes inspected to ensure no external pressure placed upon the bed at this point lumbar spine was prepped and draped in a sterile fashion. Sharp dissection with the assistance of Bovie cautery performed down to and exposing the lamina transverse processes of L3-L4-L5 and sacral ala bilaterally. From a caudal to cephalad fashion complete laminectomy of L5 L4 and L3 was performed including bilateral medial facetectomies and foraminotomies addressing severe spinal stenosis. Pedicle screws then placed in L3-L4-L5 and S1 levels bilaterally with assistance of fluoroscopy. By way of a transforaminal portion left pleat discectomy of L5-S1 was performed endplates curetted to subcortically bone and a 10 x 22 mm peek cage filled with I factor tapped in position. Then proceeded to L4-L5 and again by way of a transforaminal approach on the left complete discectomy performed endplates curetted to subcortical bleeding bone and a 13 x 22 mm peek cage filled with I factor tapped in position. Lastly approached L3-L4 again by way of a transforaminal approach on the left complete discectomy performed endplates curetted to subcortical bleeding bone and a 12 x 22 mm peek cage filled I factor tapped in position. The rods were then compressed locked in final position bilaterally. The transverse processes of L3-L4-L5 and sacral ala burred to subcortical bleeding bone. Infuse collagen sponge master graft local autograft was placed in the posterior lateral gutters. 15 round CHUCK drain inserted. The incision was then closed with 1 Vicryl fascia 2-0 Vicryl subcutaneously and 4 Monocryl for final skin closure. Steri-Strips dressings placed. Patient will continue PACU stable condition. Please note spinal cord monitoring was last that the procedure no changes noted. Lastly Yulia Gonsalez was present at the entire surgeon while the patient positioning complex portions of the surgery and final skin closure. I attest to the content of the Intraoperative Record and any orders documented therein. Any exceptions are noted below.
--- NOTE | 2021-05-15 15:23 | Fluoroscopy Report ---
FL lumbar spine 2-3V CLINICAL HISTORY: L3-S1 DECOMPRESSION AND FUSION COMPARISON STUDY: None. FLUOROSCOPY TIME: 30 seconds. FLUOROSCOPIC IMAGES: 3 FINDINGS: Fluoroscopy was provided during L3-L4, L4-L5 and L5-S1 discectomies with interbody spacer p lacement. Multilevel posterior decompression is noted. There is bilateral pedicle screw fusion from L 3 through S1. Hardware is intact. Linear radiodensities within the operative bed are noted. IMPRESSION: 1. Fluoroscopy provided during L3-S1 posterior decompression, discectomy and bilateral pedicle screw fusion. 2. Curvilinear radiodensities within the operative bed, as described above. The surgeon was aware of these findings at time of fluoroscopy. ACT 112: Negative or not required by law. Electronically signed by: Joey Hill M.D. 05/15/2021 3:22 PM
--- NOTE | 2021-05-15 15:54 | Anesthesiology Progress Note ---
Date of Service May 15, 2021 Anesthesia Post Procedure Vital Signs Vital Signs: Temp Pulse Pulse Pulse Resp BP BP 05/15/21 15:35 57 L 12 118/61 05/15/21 15:25 57 L 19 126/78 05/15/21 15:19 36.5 C 62 19 113/61 05/15/21 12:01 36.9 C 75 22 164/81 H 05/15/21 07:36 36.5 C 74 16 153/76 H 05/14/21 23:47 36.5 C 82 18 119/69 05/14/21 21:05 36.4 C L 74 16 138/75 05/14/21 18:39 36.6 C 72 16 181/91 H 05/14/21 18:25 36.8 C 72 16 181/91 H 05/14/21 17:30 62 19 186/95 H 05/14/21 17:15 60 19 182/96 H 05/14/21 17:00 62 23 176/89 H 05/14/21 16:45 70 21 188/101 H 05/14/21 16:39 05/14/21 16:30 67 19 188/104 H 05/14/21 16:15 70 17 05/14/21 16:01 67 14 169/104 H Pulse Ox 05/15/21 15:35 100 05/15/21 15:25 100 05/15/21 15:19 98 05/15/21 12:01 97 05/15/21 07:36 95 05/14/21 23:47 92 05/14/21 21:05 94 05/14/21 18:39 96 05/14/21 18:25 96 05/14/21 17:30 100 05/14/21 17:15 100 05/14/21 17:00 99 05/14/21 16:45 98 05/14/21 16:39 99 05/14/21 16:30 91 05/14/21 16:15 97 05/14/21 16:01 98 Pain Intensity Lower Back: Pain Intensity: 8 Transfer of Care Handoff Completed per policy Notes Mental Status: alert / awake / arousable and participated in evaluation Patient Amnestic to Procedure: Yes Nausea / Vomiting: adequately controlled Pain: adequately controlled Airway Patency, RR, SpO2: stable & adequate BP & HR: stable & adequate Hydration State: stable & adequate Anesthetic Complications: no major complications apparent and Pt Satisfied with anesthetic care
--- NOTE | 2021-05-15 16:09 | Anesthesiology Progress Note ---
Date of Service May 15, 2021 Anesthesia Post Procedure Vital Signs Vital Signs: Temp Pulse Pulse Pulse Resp BP BP 05/15/21 16:05 57 L 14 134/69 05/15/21 15:55 56 L 13 136/71 05/15/21 15:45 56 L 15 117/66 05/15/21 15:35 57 L 12 118/61 05/15/21 15:25 57 L 19 126/78 05/15/21 15:19 36.5 C 62 19 113/61 05/15/21 12:01 36.9 C 75 22 164/81 H 05/15/21 07:36 36.5 C 74 16 153/76 H 05/14/21 23:47 36.5 C 82 18 119/69 05/14/21 21:05 36.4 C L 74 16 138/75 05/14/21 18:39 36.6 C 72 16 181/91 H 05/14/21 18:25 36.8 C 72 16 181/91 H 05/14/21 17:30 62 19 186/95 H 05/14/21 17:15 60 19 182/96 H 05/14/21 17:00 62 23 176/89 H 05/14/21 16:45 70 21 188/101 H 05/14/21 16:39 05/14/21 16:30 67 19 188/104 H 05/14/21 16:15 70 17 Pulse Ox 05/15/21 16:05 99 05/15/21 15:55 96 05/15/21 15:45 98 05/15/21 15:35 100 05/15/21 15:25 100 05/15/21 15:19 98 05/15/21 12:01 97 05/15/21 07:36 95 05/14/21 23:47 92 05/14/21 21:05 94 05/14/21 18:39 96 05/14/21 18:25 96 05/14/21 17:30 100 05/14/21 17:15 100 05/14/21 17:00 99 05/14/21 16:45 98 05/14/21 16:39 99 05/14/21 16:30 91 05/14/21 16:15 97 Pain Intensity Lower Back: Pain Intensity: 2 Transfer of Care Handoff Completed per policy Notes Mental Status: alert / awake / arousable Patient Amnestic to Procedure: Yes Nausea / Vomiting: adequately controlled Pain: adequately controlled Airway Patency, RR, SpO2: stable & adequate BP & HR: stable & adequate Hydration State: stable & adequate Anesthetic Complications: no major complications apparent and Pt Satisfied with anesthetic care
[2021-05-15] MEDS ORDERED: NALOXONE HCL 0.4 MG/1 ML VIAL/CARP IV PRN (16:48)
[2021-05-15] MEDS ORDERED: bisacodyL 10 MG SUPP PR PRN (16:48)
[2021-05-15] MEDS ORDERED: LORazepam 0.5 MG/1 ML VIAL IV PRN (16:48)
[2021-05-15] MEDS ORDERED: MAGNESIUM HYDROXIDE SUSP 30 ML UDC PO PRN (16:48)
[2021-05-15] MEDS ORDERED: diphenhydrAMINE Capsule 25 MG CAP PO PRN (16:48)
[2021-05-15] MEDS ORDERED: PROMETHAZINE HCL 12.5 MG in SODIUM CHLORIDE 0.9% 50 ML IV PRN (16:48)
[2021-05-15] MEDS ORDERED: SOD PHOSPHATE/SOD BIPHOSPHATE ENEMA 132 ML BTL PR PRN (16:48)
[2021-05-15] MEDS ORDERED: METOCLOPRAMIDE HCL INJ 5 MG/ML 2 ML VIAL IV PRN (16:48)
[2021-05-15] MEDS ORDERED: FAMOTIDINE 20 MG TAB PO PRN (16:48)
[2021-05-15] MEDS ORDERED: DO NOT ADMINISTER FLU VACCINE PRN (16:48)
[2021-05-15] MEDS ORDERED: ALUMINUM/MAGNESIUM SUSP 30 ML UDC PO PRN (16:48)
[2021-05-15] MEDS ORDERED: DO NOT ADMINISTER PNEUMOCOCCAL VACCINE PRN (16:48)
[2021-05-15] MEDS ORDERED: ONDANSETRON 4 MG OD TAB PO PRN (16:48)
[2021-05-15] MEDS ORDERED: ACETAMINOPHEN 1,000 MG/100 ML VIAL IV PRN (16:48)
[2021-05-15] MEDS ORDERED: hydrOXYzine HCl 25 MG TAB PO PRN (16:48)
[2021-05-15] MEDS ORDERED: LORazepam 0.5 MG TAB PO PRN (16:48)
[2021-05-15] MEDS: SODIUM CHLORIDE 0.9% 1000ML 1,000 ML IV SCH (16:56)
[2021-05-15] MEDS ORDERED: NON-FORMULARY MEDICATION (Magnesium Oxide 500 mg Tablet) PO SCH (17:00)
[2021-05-15] MEDS: DOCUSATE SODIUM/SENNA 50/8.6MG TAB PO SCH (19:58)
[2021-05-15] MEDS: FAMOTIDINE 40 MG TABLET PO SCH (19:58)
[2021-05-15] MEDS: ATORVASTATIN 10 MG TAB PO SCH (19:59)
[2021-05-15] MEDS: ceFAZolin 2000MG 2,000 MG/15 ML SYR IV SCH (20:02)
[2021-05-16] MEDS: SODIUM CHLORIDE 0.9% 1000ML 1,000 ML IV SCH ×2 (02:46→13:34)
[2021-05-16] MEDS: POLYETHYLENE (MIRALAX) 17 GM PACK PO SCH ×3 (05:19→19:39)
[2021-05-16] MEDS: ceFAZolin 2000MG 2,000 MG/15 ML SYR IV SCH (05:19)
[2021-05-16] MEDS: ACETAMINOPHEN 500 MG TAB PO PRN ×2 (05:20→19:37)
[2021-05-16 06:48] LABS: Basophils # (auto) 0.01 K/uL (0-0.2); Basophils % (auto) 0.1 %; Hematocrit (blood only) 34.7 % (37-47); Hemoglobin 11.8 g/dL (12.0-16.0); Immature Granulocytes # (auto) 0.07 K/uL (0.00-0.02); Immature Granulocytes % (auto) 0.4 %; Lymphocytes # (auto) 1.01 K/uL (1.2-3.4); Lymphocytes % (auto) 5.6 %; Mean Corpuscular Hemoglobin 31.1 pg (25-34); Mean Corpuscular Volume 91.3 fL (80-100); Mean Platelet Volume 9.3 fL (7.4-10.4); Monocytes # (auto) 1.44 K/uL (0.11-0.59); Neutrophils # (auto) 15.42 K/uL (1.4-6.5); Neutrophils % (auto) 85.9 %; Platelet Count 337 K/uL (130-400); RDW Coefficient of Variation 11.6 % (11.5-14.5); RDW Standard Deviation 38.9 fL (36.4-46.3); White Blood Count 17.95 K/uL (4.8-10.8)
[2021-05-16 07:10] LABS: Calcium 8.7 mg/dl (8.5-10.1); Est GFR (African American) 64.8 ml/min; Est GFR (Non-African American) 55.9 ml/min; Potassium 3.7 mmol/L (3.5-5.1)
[2021-05-16] MEDS: carvediloL 6.25 MG TAB PO SCH ×2 (08:58→20:09)
[2021-05-16] MEDS: MAGNESIUM OXIDE 400 MG TAB PO SCH ×2 (08:59→20:07)
[2021-05-16] MEDS: hydrALAZINE 10 MG TAB PO SCH ×3 (08:59→20:09)
[2021-05-16] MEDS: LOSARTAN POTASSIUM 50 MG TAB PO SCH (08:59)
[2021-05-16] MEDS: PANTOprazole 40 MG TAB PO SCH (09:00)
[2021-05-16] MEDS: dexAMETHasone 6 MG in SYRINGE 0 ML IV SCH (11:48)
[2021-05-16] MEDS ORDERED: bisacodyL 10 MG SUPP PR PRN (15:45)
--- NOTE | 2021-05-16 16:02 | Orthopedic Progress Note ---
Date of Service May 16, 2021 Assessment & Plan (1) Neurogenic claudication due to lumbar spinal stenosis: Plan: Patient is status post multilevel lumbar decompression fusion. At this time we will continue physical therapy monitor CHUCK output assess response to therapy determine whether she is a candidate for discharge home versus rehab. Admission and Anticipated Discharge Date Admission Date: May 14, 2021 Physical Exam Physical Exam: Patient is comfortable is good strength testing. Results & Data ([facility]) Vital Signs (Past 12 Hours) Vital Signs Temp Pulse Resp BP Pulse Ox 05/16/21 15:45 36.6 C 75 20 135/77 95 05/16/21 07:22 36.7 C 67 18 131/70 98
--- NOTE | 2021-05-16 20:05 | Hospitalist Progress Note ---
Date of Service May 16, 2021 Assessment & Plan (1) Neurogenic claudication due to lumbar spinal stenosis: Plan: 76-year-old lady with past medical history of HLD, restless leg syndrome, neurogenic claudication due to lumbar spinal stenosis, severe low back pain, herniated lumbar intervertebral discs, migraine, GERD, hypertension, A. fib on Xarelto, was admitted for elective spine surgery on 05/15. She is being managed for the following: (1) Neurogenic claudication due to lumbar spinal stenosis: -Status post lumbar decompression and fusion 05/[address] Little. - Pain management, bowel regimen and DVT ppx per the primary team - PT/OT while inpatient, incentive spirometry #. Anemia Hemoglobin slightly down trended after surgery Patient asymptomatic, trend daily hemoglobin until stable (2) AF (atrial fibrillation): - Hx of such, s/p ablation, Continue rate control with Coreg - Holding xarelto, resume per ortho (3) HTN (hypertension): - Continnue losartan, NCTZ, coreg and cholothalidone. -Blood pressure fairly under control. (4) GERD (gastroesophageal reflux disease): - Chronic, stable (5) Restless leg syndrome: - May continue klonopin prn (6) HLD (hyperlipidemia): - Cont statin therapy DVT ppx: - teds, scds, Xarelto per orthopedics. CODE: Full code Admission and Anticipated Discharge Date Admission Date: May 14, 2021 Subjective Patient was sitting up in bed, ready to eat her lunch, no new acute events overnight, patient reporting improvement in her radicular symptoms. Patient reports pain at the low back surgery site under control. Patient denies fever/headache/chills/chest pain/other review of symptoms. Physical Exam Physical Exam: GENERAL: Alert and oriented x3. NAD, on RA. HEENT: No pallor, no icterus. Pupils equal, round and reactive to light. Oral mucosa moist. NECK: No JVD, no neck masses. HEART: S1 and S2 heard. Regular rate and rhythm. Systolic murmur over pulmonic and aortic area,, no gallop. RESPIRATORY SYSTEM: Normal AP diameter. No accessory muscle use. No wheezing, no crackles. ABDOMEN: Soft, bowel sounds present, nontender, no distention. CENTRAL NERVOUS SYSTEM: Alert and oriented x3. No facial droop. Speech is clear. Obeys simple commands. Moves extremities. EXTREMITIES: No edema, no erythema seen. Low back examination: Clean dressing without soakage present. Results & Data Results & Data ([facility]) Vital Signs (Past 12 Hours) Vital Signs Temp Pulse Resp BP Pulse Ox 05/16/21 15:45 36.6 C 75 20 135/77 95
[2021-05-16] MEDS: DOCUSATE SODIUM/SENNA 50/8.6MG TAB PO SCH (20:07)
[2021-05-16] MEDS: FAMOTIDINE 40 MG TABLET PO SCH (20:08)
[2021-05-16] MEDS: ATORVASTATIN 10 MG TAB PO SCH (20:08)
[2021-05-17] MEDS: POLYETHYLENE (MIRALAX) 17 GM PACK PO SCH (00:40)
[2021-05-17] MEDS: MAGNESIUM OXIDE 400 MG TAB PO SCH ×2 (07:33→20:20)
[2021-05-17] MEDS: hydrALAZINE 10 MG TAB PO SCH ×3 (07:34→20:19)
[2021-05-17] MEDS: carvediloL 6.25 MG TAB PO SCH ×2 (07:34→20:19)
[2021-05-17] MEDS: LOSARTAN POTASSIUM 50 MG TAB PO SCH (07:34)
[2021-05-17] MEDS: dexAMETHasone 6 MG in SYRINGE 0 ML IV SCH (07:34)
[2021-05-17] MEDS: PANTOprazole 40 MG TAB PO SCH (07:35)
[2021-05-17] MEDS: ACETAMINOPHEN 500 MG TAB PO PRN ×2 (07:39→17:23)
--- NOTE | 2021-05-17 08:31 | Hospitalist Progress Note ---
Date of Service May 17, 2021 Assessment & Plan (1) Neurogenic claudication due to lumbar spinal stenosis: Plan: 76 yo F w/ hx of HLD, restless leg syndrome, neurogenic claudication due to lumbar spinal stenosis, severe low back pain, herniated lumbar intervertebral discs, migraine, GERD, hypertension, A. fib on Xarelto, was admitted for elective spine surgery on 05/15. She is being managed for the following: Neurogenic claudication due to lumbar spinal stenosis: - Status post lumbar decompression and fusion 05/[address] Little. - Pain management, bowel regimen and DVT ppx per the primary team - PT/OT while inpatient, incentive spirometry Anemia Acute blood loss anemia, post-op expected vs. dilutional Hemoglobin slightly down trended after surgery Patient asymptomatic, trend daily hemoglobin until stable AF (atrial fibrillation) - Hx of such, s/p ablation, Continue rate control with Coreg - Holding xarelto, resume per ortho HTN (hypertension): - Continnue losartan, NCTZ, coreg and cholothalidone. -Blood well controlled GERD (gastroesophageal reflux disease): - Chronic, stable Restless leg syndrome: - May continue klonopin prn HLD (hyperlipidemia): - Cont statin therapy DVT ppx: - teds, scds, resume Xarelto per orthopedics. CODE: Full code Admission and Anticipated Discharge Date Admission Date: May 14, 2021 Subjective Pt seen in follow up of lumbar surgery Currently sitting up in chair in NAD She has no Mendoza catheter, voiding w/o difficulty, having BMs Ambulating with PT Patient reports pain at the low back surgery site under control. Patient denies fever/headache/chills/chest pain/shortness of breath, abd. pain, n/v. Review of Systems Review of Systems: All systems reviewed & are unremarkable except as noted in Subjective Physical Exam Physical Exam: GENERAL: Alert and oriented x3. NAD, on RA. HEENT: NC/AT, EOMI, PERRL. Oral mucosa moist. NECK: No JVD, no neck masses. HEART: S1 and S2 heard. Regular rate and rhythm. Systolic murmur over pulmonic and aortic area,, no gallop. RESPIRATORY SYSTEM: Normal AP diameter. No accessory muscle use. No wheezing, no crackles. ABDOMEN: Soft, bowel sounds present, nontender, no distention. BACK: CHUCK drain visualized, + serosang. drainage NEURO: Alert and oriented x3. No facial droop. Speech is clear.Moves extremities. EXTREMITIES: No edema, no erythema seen. Results & Data Results & Data ([facility]) Vital Signs (Past 12 Hours) Vital Signs Temp Pulse Resp BP Pulse Ox 05/17/21 07:20 36.6 C 67 18 112/62 96 05/16/21 23:20 36.8 C 96 H 16 116/72 96 Laboratory Results 05/17/21 05/17/21 05/16/21 Range/Units 08:38 08:38 09:53 WBC 12.84 H (4.8-10.8) K/uL RBC 3.66 L (4.2-5.4) M/uL Hgb 11.2 L (12.0-16.0) g/dL Hct 32.4 L (37-47) % MCV 88.5 (80-100) fL MCH 30.6 (25-34) pg MCHC 34.6 (32-36) g/dL RDW Std Deviation 37.2 (36.4-46.3) fL RDW Coeff of Barrett 11.4 L (11.5-14.5) % Plt Count 298 (130-400) K/uL MPV 9.4 (7.4-10.4) fL Sodium Pending Potassium Pending Chloride Pending Carbon Dioxide Pending Anion Gap Pending BUN Pending Creatinine Pending Est Cr Clr Drug Dosing Pending Est GFR ( Amer) Pending Est GFR (Non-Af Amer) Pending BUN/Creatinine Ratio Pending Glucose Pending Calcium Pending Magnesium Pending Procalcitonin < 0.05 (0-0.5) ng/ml Medications Administered Current Inpatient Medications Acetaminophen (Acetaminophen 500 Mg Tab) 1,000 mg PO Q8H PRN PRN Reason: MILD Pain Scale 1,2,3 & Pre PT Stop: 06/14/21 16:47 Last Admin: 05/17/21 07:39 Dose: 1,000 mg Documented by: Al Hydrox/Mg Hydrox/Simethicone (Aluminum/Magnesium Susp 30 Ml Udc) 30 ml PO Q6H PRN PRN Reason: Dyspepsia Stop: 06/14/21 16:47 Atorvastatin Calcium (Atorvastatin 10 Mg Tab) 10 mg PO PM YI Stop: 06/13/21 20:59 Last Admin: 05/16/21 20:08 Dose: 10 mg Documented by: Bisacodyl (Bisacodyl 10 Mg Supp) 10 mg ND DAILY PRN PRN Reason: Constipation Stop: 06/14/21 16:47 Carvedilol (Carvedilol 6.25 Mg Tab) 6.25 mg PO BID YI Stop: 06/13/21 20:59 Last Admin: 05/17/21 07:34 Dose: 6.25 mg Documented by: Clonazepam (Clonazepam 1 Mg Tab) 1 mg PO HS PRN PRN Reason: Restless Leg(S) Stop: 06/13/21 19:26 Diphenhydramine HCl (Diphenhydramine Capsule 25 Mg Cap) 25 mg PO Q6H PRN PRN Reason: Allergic Rhinitis/Insomnia Stop: 06/14/21 16:47 Famotidine (Famotidine 40 Mg Tablet) 40 mg PO PM YI Stop: 06/13/21 20:59 Last Admin: 05/16/21 20:08 Dose: 40 mg Documented by: Famotidine (Famotidine 20 Mg Tab) 20 mg PO Q12H PRN PRN Reason: Dyspepsia Stop: 06/14/21 16:47 Hydralazine HCl (Hydralazine 10 Mg Tab) 10 mg PO TID YI Stop: 06/13/21 20:59 Last Admin: 05/17/21 07:34 Dose: 10 mg Documented by: Hydralazine HCl (Hydralazine Hcl 20 Mg/Ml Vial) 5 mg IV Q6H PRN PRN Reason: Hypertension Stop: 06/13/21 19:28 Hydroxyzine HCl (Hydroxyzine Hcl 25 Mg Tab) 25 mg PO Q8H PRN PRN Reason: Anxiety Stop: 06/14/21 16:47 Promethazine HCl 12.5 mg/ (Sodium Chloride) 50.5 mls @ 202 mls/hr IV Q6H PRN PRN Reason: Nausea &/or Vomiting Stop: 06/14/21 16:47 Acetaminophen (Ofirmev) 1,000 mg in 100 mls @ 400 mls/hr IV Q8H PRN PRN Reason: Pain Rating 1-3 & Pre PT Stop: 05/18/21 16:47 Lorazepam (Ativan) 0.5 mg in 1 mls @ 1 mls/min IV Q8H PRN PRN Reason: Sedation/Anxiety Stop: 06/14/21 16:47 Dexamethasone 6 mg/ Syringe 1.5 mls @ 1 mls/min IV DAILY [facility] Stop: 05/18/21 09:02 Last Admin: 05/17/21 07:34 Dose: 1 mls/min Documented by: Influenza Virus Vaccine Quadrival (Do Not Administer Flu Vaccine) 1 ea N/A PRN PRN PRN Reason: Notification Stop: 06/14/21 16:47 Lorazepam (Lorazepam 0.5 Mg Tab) 0.5 mg PO Q8H PRN PRN Reason: Sedation/Anxiety Stop: 06/14/21 16:47 Losartan Potassium (Losartan Potassium 50 Mg Tab) 50 mg PO QAM [facility] Stop: 06/14/21 08:59 Last Admin: 05/17/21 07:34 Dose: 50 mg Documented by: Magnesium Hydroxide (Magnesium Hydroxide Susp 30 Ml Udc) 30 ml PO Q24H PRN PRN Reason: Constipation Stop: 06/14/21 16:47 Magnesium Oxide (Magnesium Oxide 400 Mg Tab) 400 mg PO BID [facility] Stop: 06/13/21 20:59 Last Admin: 05/17/21 07:33 Dose: 400 mg Documented by: Metoclopramide HCl (Metoclopramide Hcl Inj 5 Mg/Ml 2 Ml Vial) 10 mg IV Q6H PRN PRN Reason: Nausea &/or Vomiting Stop: 06/14/21 16:47 Naloxone HCl (Naloxone Hcl 0.4 Mg/1 Ml Vial/Carp) 0.1 mg IV Q5M PRN PRN Reason: Oversedation/Resp depression Stop: 06/14/21 16:47 Ondansetron HCl (Ondansetron Inj 2 Mg/Ml 2 Ml Vial) 4 mg IV Q6H PRN PRN Reason: Nausea &/or Vomiting Stop: 06/14/21 16:47 Ondansetron HCl (Ondansetron 4 Mg Od Tab) 4 mg PO Q6H PRN PRN Reason: Nausea Stop: 06/14/21 16:47 Pantoprazole Sodium (Pantoprazole 40 Mg Tab) 40 mg PO QAM [facility] Stop: 06/14/21 08:59 Last Admin: 05/17/21 07:35 Dose: 40 mg Documented by: Pneumococcal Polyvalent Vaccine (Do Not Administer Pneumococcal Vaccine) 1 ea N/A PRN PRN PRN Reason: Notification Stop: 06/14/21 16:47 Senna/Docusate Sodium (Docusate Sodium/Senna 50/8.6mg Tab) 2 tab PO HS YI Stop: 06/14/21 20:59 Last Admin: 05/16/21 20:07 Dose: 2 tab Documented by: Sodium Biphosphate/Sodium Phosphate (Sod Phosphate/Sod Biphosphate Enema 132 Ml Btl) 132 ml ND ONE PRN PRN Reason: Constipation Stop: 06/14/21 16:47
[2021-05-17 09:25] LABS: Hematocrit (blood only) 32.4 % (37-47); Hemoglobin 11.2 g/dL (12.0-16.0); Mean Corpuscular Hemoglobin 30.6 pg (25-34); Mean Corpuscular Hgb Conc 34.6 g/dL (32-36); Mean Corpuscular Volume 88.5 fL (80-100); Mean Platelet Volume 9.4 fL (7.4-10.4); Platelet Count 298 K/uL (130-400); RDW Coefficient of Variation 11.4 % (11.5-14.5); RDW Standard Deviation 37.2 fL (36.4-46.3); Red Blood Count 3.66 M/uL (4.2-5.4); White Blood Count 12.84 K/uL (4.8-10.8)
[2021-05-17 10:32] LABS: BUN Creatinine Ratio 25.5 (10-20); Calcium 8.8 mg/dl (8.5-10.1); Creatinine Clr Calc Pharmacy 74.9 ml/min; Est GFR (African American) 98.1 ml/min; Est GFR (Non-African American) 84.6 ml/min; Magnesium 1.8 mg/dl (1.8-2.4); Potassium 3.6 mmol/L (3.5-5.1)
[2021-05-17] MEDS ORDERED: traMADol HCL 50 MG TABLET PO PRN (11:06)
--- NOTE | 2021-05-17 11:34 | Orthopedic Progress Note ---
Date of Service May 17, 2021 Assessment & Plan (1) Neurogenic claudication due to lumbar spinal stenosis: Plan: Patient status post lumbar depression fusion. We will continue physical therapy assess her progress hopefully discharge home versus rehab. Admission and Anticipated Discharge Date Admission Date: May 14, 2021 Subjective Patient's back pain is controlled leg symptoms markedly improved Physical Exam Physical Exam: Patient has good strength testing appears comfortable. Results & Data ([facility]) Vital Signs (Past 12 Hours) Vital Signs Temp Pulse Resp BP Pulse Ox 05/17/21 07:20 36.6 C 67 18 112/62 96
[2021-05-17] MEDS: traMADol HCL 50 MG TABLET PO PRN ×2 (11:56→20:20)
[2021-05-17] MEDS: ATORVASTATIN 10 MG TAB PO SCH (20:18)
[2021-05-17] MEDS: FAMOTIDINE 40 MG TABLET PO SCH (20:19)
[2021-05-17] MEDS: DOCUSATE SODIUM/SENNA 50/8.6MG TAB PO SCH (20:21)
[2021-05-18] MEDS: ACETAMINOPHEN 500 MG TAB PO PRN ×2 (01:12→12:33)
[2021-05-18] MEDS: dexAMETHasone 6 MG in SYRINGE 0 ML IV SCH (08:14)
[2021-05-18] MEDS: traMADol HCL 50 MG TABLET PO PRN ×3 (08:23→21:35)
[2021-05-18 08:27] LABS: Hematocrit (blood only) 33.5 % (37-47); Hemoglobin 11.6 g/dL (12.0-16.0)
--- NOTE | 2021-05-18 08:33 | Hospitalist Progress Note ---
Date of Service May 18, 2021 Assessment & Plan (1) Neurogenic claudication due to lumbar spinal stenosis: Plan: 76 yo F w/ hx of HLD, restless leg syndrome, neurogenic claudication due to lumbar spinal stenosis, severe low back pain, herniated lumbar intervertebral discs, migraine, GERD, hypertension, A. fib on Xarelto, was admitted for elective spine surgery on 05/15. She is being managed for the following: Neurogenic claudication due to lumbar spinal stenosis: - Status post lumbar decompression and fusion 05/[address] Little. - Pain management, bowel regimen and DVT ppx per the primary team - PT/OT while inpatient, incentive spirometry Anemia Acute blood loss anemia, post-op expected vs. dilutional Hemoglobin slightly down trended after surgery Patient asymptomatic, trend daily hemoglobin until stable AF (atrial fibrillation) - Hx of such, s/p ablation, Continue rate control with Coreg - Holding xarelto, resume per ortho HTN (hypertension): - Continnue losartan, HCTZ, coreg and chlorthalidone. -BP well controlled GERD (gastroesophageal reflux disease): - Chronic, stable Restless leg syndrome: - May continue klonopin prn HLD (hyperlipidemia): - Cont statin therapy DVT ppx: - teds, scds, resumed Xarelto per orthopedics today. CODE: Full code Admission and Anticipated Discharge Date Admission Date: May 14, 2021 Subjective Pt seen in follow up of lumbar surgery Currently sitting up in chair in NAD Feeling well, ambulating with PT still has link drain Patient reports pain at the low back surgery site under control. Patient denies fever/headache/chills/chest pain/shortness of breath, abd. pain, n/v. Review of Systems Review of Systems: All systems reviewed & are unremarkable except as noted in Subjective Physical Exam Physical Exam: GENERAL: Alert and oriented x3. NAD, on RA. HEENT: NC/AT, EOMI, PERRL. Oral mucosa moist. NECK: No JVD, no neck masses. HEART: S1 and S2 heard. Regular rate and rhythm. Systolic murmur over pulmonic and aortic area, no gallop. RESPIRATORY SYSTEM: Normal AP diameter. No accessory muscle use. No wheezing, no crackles. ABDOMEN: Soft, bowel sounds present, nontender, no distention. BACK: LINK drain visualized, + serosang. drainage NEURO: Alert and oriented x3. No facial droop. Speech is clear.Moves extremities. EXTREMITIES: No edema, no erythema seen. Results & Data Results & Data ([facility]) Vital Signs (Past 12 Hours) Vital Signs Temp Pulse Resp BP Pulse Ox 05/17/21 22:41 36.6 C 66 18 152/75 H 95 Laboratory Results 05/18/21 Range/Units 08:10 Hgb 11.6 L (12.0-16.0) g/dL Hct 33.5 L (37-47) % Medications Administered Current Inpatient Medications Acetaminophen (Acetaminophen 500 Mg Tab) 1,000 mg PO Q8H PRN PRN Reason: MILD Pain Scale 1,2,3 & Pre PT Stop: 06/14/21 16:47 Last Admin: 05/18/21 01:12 Dose: 1,000 mg Documented by: Al Hydrox/Mg Hydrox/Simethicone (Aluminum/Magnesium Susp 30 Ml Udc) 30 ml PO Q6H PRN PRN Reason: Dyspepsia Stop: 06/14/21 16:47 Last Admin: 05/17/21 20:17 Dose: 30 ml Documented by: Atorvastatin Calcium (Atorvastatin 10 Mg Tab) 10 mg PO PM YI Stop: 06/13/21 20:59 Last Admin: 05/17/21 20:18 Dose: 10 mg Documented by: Bisacodyl (Bisacodyl 10 Mg Supp) 10 mg ID DAILY PRN PRN Reason: Constipation Stop: 06/14/21 16:47 Carvedilol (Carvedilol 6.25 Mg Tab) 6.25 mg PO BID YI Stop: 06/13/21 20:59 Last Admin: 05/17/21 20:19 Dose: 6.25 mg Documented by: Clonazepam (Clonazepam 1 Mg Tab) 1 mg PO HS PRN PRN Reason: Restless Leg(S) Stop: 06/13/21 19:26 Diphenhydramine HCl (Diphenhydramine Capsule 25 Mg Cap) 25 mg PO Q6H PRN PRN Reason: Allergic Rhinitis/Insomnia Stop: 06/14/21 16:47 Famotidine (Famotidine 40 Mg Tablet) 40 mg PO PM YI Stop: 06/13/21 20:59 Last Admin: 05/17/21 20:19 Dose: 40 mg Documented by: Famotidine (Famotidine 20 Mg Tab) 20 mg PO Q12H PRN PRN Reason: Dyspepsia Stop: 06/14/21 16:47 Hydralazine HCl (Hydralazine 10 Mg Tab) 10 mg PO TID [facility] Stop: 06/13/21 20:59 Last Admin: 05/17/21 20:19 Dose: 10 mg Documented by: Hydralazine HCl (Hydralazine Hcl 20 Mg/Ml Vial) 5 mg IV Q6H PRN PRN Reason: Hypertension Stop: 06/13/21 19:28 Hydroxyzine HCl (Hydroxyzine Hcl 25 Mg Tab) 25 mg PO Q8H PRN PRN Reason: Anxiety Stop: 06/14/21 16:47 Promethazine HCl 12.5 mg/ (Sodium Chloride) 50.5 mls @ 202 mls/hr IV Q6H PRN PRN Reason: Nausea &/or Vomiting Stop: 06/14/21 16:47 Acetaminophen (Ofirmev) 1,000 mg in 100 mls @ 400 mls/hr IV Q8H PRN PRN Reason: Pain Rating 1-3 & Pre PT Stop: 05/18/21 16:47 Lorazepam (Ativan) 0.5 mg in 1 mls @ 1 mls/min IV Q8H PRN PRN Reason: Sedation/Anxiety Stop: 06/14/21 16:47 Dexamethasone 6 mg/ Syringe 1.5 mls @ 1 mls/min IV DAILY [facility] Stop: 05/18/21 09:02 Last Admin: 05/18/21 08:14 Dose: 1 mls/min Documented by: Influenza Virus Vaccine Quadrival (Do Not Administer Flu Vaccine) 1 ea N/A PRN PRN PRN Reason: Notification Stop: 06/14/21 16:47 Lorazepam (Lorazepam 0.5 Mg Tab) 0.5 mg PO Q8H PRN PRN Reason: Sedation/Anxiety Stop: 06/14/21 16:47 Losartan Potassium (Losartan Potassium 50 Mg Tab) 50 mg PO QAM [facility] Stop: 06/14/21 08:59 Last Admin: 05/17/21 07:34 Dose: 50 mg Documented by: Magnesium Hydroxide (Magnesium Hydroxide Susp 30 Ml Udc) 30 ml PO Q24H PRN PRN Reason: Constipation Stop: 06/14/21 16:47 Magnesium Oxide (Magnesium Oxide 400 Mg Tab) 400 mg PO BID [facility] Stop: 06/13/21 20:59 Last Admin: 05/17/21 20:20 Dose: 400 mg Documented by: Metoclopramide HCl (Metoclopramide Hcl Inj 5 Mg/Ml 2 Ml Vial) 10 mg IV Q6H PRN PRN Reason: Nausea &/or Vomiting Stop: 06/14/21 16:47 Naloxone HCl (Naloxone Hcl 0.4 Mg/1 Ml Vial/Carp) 0.1 mg IV Q5M PRN PRN Reason: Oversedation/Resp depression Stop: 06/14/21 16:47 Ondansetron HCl (Ondansetron Inj 2 Mg/Ml 2 Ml Vial) 4 mg IV Q6H PRN PRN Reason: Nausea &/or Vomiting Stop: 06/14/21 16:47 Ondansetron HCl (Ondansetron 4 Mg Od Tab) 4 mg PO Q6H PRN PRN Reason: Nausea Stop: 06/14/21 16:47 Pantoprazole Sodium (Pantoprazole 40 Mg Tab) 40 mg PO QAM [facility] Stop: 06/14/21 08:59 Last Admin: 05/17/21 07:35 Dose: 40 mg Documented by: Pneumococcal Polyvalent Vaccine (Do Not Administer Pneumococcal Vaccine) 1 ea N/A PRN PRN PRN Reason: Notification Stop: 06/14/21 16:47 Senna/Docusate Sodium (Docusate Sodium/Senna 50/8.6mg Tab) 2 tab PO HS [facility] Stop: 06/14/21 20:59 Last Admin: 05/17/21 20:21 Dose: Not Given Documented by: Sodium Biphosphate/Sodium Phosphate (Sod Phosphate/Sod Biphosphate Enema 132 Ml Btl) 132 ml ID ONE PRN PRN Reason: Constipation Stop: 06/14/21 16:47 Tramadol HCl (Tramadol Hcl 50 Mg Tablet) 50 mg PO Q6H PRN PRN Reason: Moderate Pain Stop: 06/16/21 11:04 Last Admin: 05/18/21 08:23 Dose: 50 mg Documented by: Tramadol HCl (Tramadol Hcl 50 Mg Tablet) 100 mg PO Q6H PRN PRN Reason: Severe Pain Stop: 06/16/21 11:05
[2021-05-18] MEDS: LOSARTAN POTASSIUM 50 MG TAB PO SCH (09:26)
[2021-05-18] MEDS: hydrALAZINE 10 MG TAB PO SCH ×3 (09:26→21:25)
[2021-05-18] MEDS: MAGNESIUM OXIDE 400 MG TAB PO SCH ×2 (09:26→21:25)
[2021-05-18] MEDS: carvediloL 6.25 MG TAB PO SCH ×2 (09:27→21:24)
[2021-05-18] MEDS: PANTOprazole 40 MG TAB PO SCH (09:27)
--- NOTE | 2021-05-18 10:09 | Orthopedic Progress Note ---
Date of Service May 18, 2021 Assessment & Plan (1) Neurogenic claudication due to lumbar spinal stenosis: Plan: This time we will continue physical continue physical therapy monitor CHUCK operatively discharge home tomorrow. Admission and Anticipated Discharge Date Admission Date: May 14, 2021 Subjective Back pain controlled leg pain markedly improved Physical Exam Physical Exam: Patient's back pain controlled leg pain markedly improved Results & Data ([facility]) Vital Signs (Past 12 Hours) Vital Signs Temp Pulse Resp BP Pulse Ox 05/18/21 08:40 36.5 C 74 19 153/78 H 95 05/17/21 22:41 36.6 C 66 18 152/75 H 95
[2021-05-18] MEDS: RIVAROXABAN 20 MG TAB PO SCH (15:48)
[2021-05-18] MEDS: ATORVASTATIN 10 MG TAB PO SCH (21:23)
[2021-05-18] MEDS: DOCUSATE SODIUM/SENNA 50/8.6MG TAB PO SCH (21:24)
[2021-05-18] MEDS: FAMOTIDINE 40 MG TABLET PO SCH (21:25)
--- NOTE | 2021-05-19 07:06 | Hospitalist Progress Note ---
Date of Service May 19, 2021 Assessment & Plan (1) Neurogenic claudication due to lumbar spinal stenosis: Plan: 76 yo F w/ hx of HLD, restless leg syndrome, neurogenic claudication due to lumbar spinal stenosis, severe low back pain, herniated lumbar intervertebral discs, migraine, GERD, hypertension, A. fib on Xarelto, was admitted for elective spine surgery on 05/15. She is being managed for the following: Neurogenic claudication due to lumbar spinal stenosis: - Status post lumbar decompression and fusion 05/[address] Little. - Pain management, bowel regimen and DVT ppx per the primary team Xarelto was resumed - PT/OT while inpatient, incentive spirometry Anemia Acute blood loss anemia, post-op expected vs. dilutional Hemoglobin slightly down trended after surgery Hgb 12.0 today (05/09), stable Patient asymptomatic AF (atrial fibrillation) - Hx of such, s/p ablation, Continue rate control with Coreg - xarelto was resumed HTN (hypertension): - Continnue losartan, HCTZ, coreg and chlorthalidone. -BP well controlled GERD (gastroesophageal reflux disease): - Chronic, stable Restless leg syndrome: - May continue klonopin prn HLD (hyperlipidemia): - Cont statin therapy DVT ppx: - teds, scds, resumed Xarelto per orthopedics CODE: Full code Admission and Anticipated Discharge Date Admission Date: May 14, 2021 Subjective Pt seen in follow up of lumbar surgery Currently sitting up in chair in NAD Feeling well, ambulating with PT Patient denies fever/headache/chills/chest pain/shortness of breath, abd. pain, n/v. eating ok, having BMs Review of Systems Review of Systems: All systems reviewed & are unremarkable except as noted in Subjective Physical Exam Physical Exam: GENERAL: Alert and oriented x3. NAD, on RA. HEENT: NC/AT, EOMI, PERRL. Oral mucosa moist. NECK: No JVD, no neck masses. HEART: S1 and S2 heard. Regular rate and rhythm. +syst. murmur RESPIRATORY SYSTEM: Normal AP diameter. No accessory muscle use. No wheezing, no crackles. ABDOMEN: Soft, bowel sounds present, nontender, no distention. NEURO: Alert and oriented x3. No facial droop. Speech is clear.Moves extremities. EXTREMITIES: No edema, no erythema seen. Results & Data Results & Data ([facility]) Vital Signs (Past 12 Hours) Vital Signs Temp Pulse Pulse Resp BP Pulse Ox 05/18/21 23:05 36.7 C 65 16 147/74 H 96 05/18/21 21:38 70 167/80 H Laboratory Results 05/19/21 Range/Units 09:40 Hgb 12.0 (12.0-16.0) g/dL Hct 35.0 L (37-47) % Medications Administered Current Inpatient Medications Acetaminophen (Acetaminophen 500 Mg Tab) 1,000 mg PO Q8H PRN PRN Reason: MILD Pain Scale 1,2,3 & Pre PT Stop: 06/14/21 16:47 Last Admin: 05/18/21 12:33 Dose: 1,000 mg Documented by: Al Hydrox/Mg Hydrox/Simethicone (Aluminum/Magnesium Susp 30 Ml Udc) 30 ml PO Q6H PRN PRN Reason: Dyspepsia Stop: 06/14/21 16:47 Last Admin: 05/17/21 20:17 Dose: 30 ml Documented by: Atorvastatin Calcium (Atorvastatin 10 Mg Tab) 10 mg PO PM YI Stop: 06/13/21 20:59 Last Admin: 05/18/21 21:23 Dose: 10 mg Documented by: Bisacodyl (Bisacodyl 10 Mg Supp) 10 mg ID DAILY PRN PRN Reason: Constipation Stop: 06/14/21 16:47 Carvedilol (Carvedilol 6.25 Mg Tab) 6.25 mg PO BID YI Stop: 06/13/21 20:59 Last Admin: 05/18/21 21:24 Dose: 6.25 mg Documented by: Clonazepam (Clonazepam 1 Mg Tab) 1 mg PO HS PRN PRN Reason: Restless Leg(S) Stop: 06/13/21 19:26 Diphenhydramine HCl (Diphenhydramine Capsule 25 Mg Cap) 25 mg PO Q6H PRN PRN Reason: Allergic Rhinitis/Insomnia Stop: 06/14/21 16:47 Famotidine (Famotidine 40 Mg Tablet) 40 mg PO PM YI Stop: 06/13/21 20:59 Last Admin: 05/18/21 21:25 Dose: 40 mg Documented by: Famotidine (Famotidine 20 Mg Tab) 20 mg PO Q12H PRN PRN Reason: Dyspepsia Stop: 06/14/21 16:47 Hydralazine HCl (Hydralazine 10 Mg Tab) 10 mg PO TID [facility] Stop: 06/13/21 20:59 Last Admin: 05/18/21 21:25 Dose: 10 mg Documented by: Hydralazine HCl (Hydralazine Hcl 20 Mg/Ml Vial) 5 mg IV Q6H PRN PRN Reason: Hypertension Stop: 06/13/21 19:28 Hydroxyzine HCl (Hydroxyzine Hcl 25 Mg Tab) 25 mg PO Q8H PRN PRN Reason: Anxiety Stop: 06/14/21 16:47 Promethazine HCl 12.5 mg/ (Sodium Chloride) 50.5 mls @ 202 mls/hr IV Q6H PRN PRN Reason: Nausea &/or Vomiting Stop: 06/14/21 16:47 Lorazepam (Ativan) 0.5 mg in 1 mls @ 1 mls/min IV Q8H PRN PRN Reason: Sedation/Anxiety Stop: 06/14/21 16:47 Influenza Virus Vaccine Quadrival (Do Not Administer Flu Vaccine) 1 ea N/A PRN PRN PRN Reason: Notification Stop: 06/14/21 16:47 Lorazepam (Lorazepam 0.5 Mg Tab) 0.5 mg PO Q8H PRN PRN Reason: Sedation/Anxiety Stop: 06/14/21 16:47 Losartan Potassium (Losartan Potassium 50 Mg Tab) 50 mg PO QAM YI Stop: 06/14/21 08:59 Last Admin: 05/18/21 09:26 Dose: 50 mg Documented by: Magnesium Hydroxide (Magnesium Hydroxide Susp 30 Ml Udc) 30 ml PO Q24H PRN PRN Reason: Constipation Stop: 06/14/21 16:47 Magnesium Oxide (Magnesium Oxide 400 Mg Tab) 400 mg PO BID YI Stop: 06/13/21 20:59 Last Admin: 05/18/21 21:25 Dose: 400 mg Documented by: Metoclopramide HCl (Metoclopramide Hcl Inj 5 Mg/Ml 2 Ml Vial) 10 mg IV Q6H PRN PRN Reason: Nausea &/or Vomiting Stop: 06/14/21 16:47 Naloxone HCl (Naloxone Hcl 0.4 Mg/1 Ml Vial/Carp) 0.1 mg IV Q5M PRN PRN Reason: Oversedation/Resp depression Stop: 06/14/21 16:47 Ondansetron HCl (Ondansetron Inj 2 Mg/Ml 2 Ml Vial) 4 mg IV Q6H PRN PRN Reason: Nausea &/or Vomiting Stop: 06/14/21 16:47 Ondansetron HCl (Ondansetron 4 Mg Od Tab) 4 mg PO Q6H PRN PRN Reason: Nausea Stop: 06/14/21 16:47 Last Admin: 05/18/21 21:36 Dose: 4 mg Documented by: Pantoprazole Sodium (Pantoprazole 40 Mg Tab) [facility]: 06/14/21 08:59 Last Admin: 05/18/21 09:27 Dose: 40 mg Documented by: Pneumococcal Polyvalent Vaccine (Do Not Administer Pneumococcal Vaccine) 1 ea N/A PRN PRN PRN Reason: Notification Stop: 06/14/21 16:47 Rivaroxaban (Rivaroxaban 20 Mg Tab) 20 mg PO DAILY [facility] Stop: 06/17/21 14:14 Last Admin: 05/18/21 15:48 Dose: 20 mg Documented by: Senna/Docusate Sodium (Docusate Sodium/Senna 50/8.6mg Tab) 2 tab PO HS [facility] Stop: 06/14/21 20:59 Last Admin: 05/18/21 21:24 Dose: 2 tab Documented by: Sodium Biphosphate/Sodium Phosphate (Sod Phosphate/Sod Biphosphate Enema 132 Ml Btl) 132 ml ID ONE PRN PRN Reason: Constipation Stop: 06/14/21 16:47 Tramadol HCl (Tramadol Hcl 50 Mg Tablet) 50 mg PO Q6H PRN PRN Reason: Moderate Pain Stop: 06/16/21 11:04 Last Admin: 05/18/21 21:35 Dose: 50 mg Documented by: Tramadol HCl (Tramadol Hcl 50 Mg Tablet) 100 mg PO Q6H PRN PRN Reason: Severe Pain Stop: 06/16/21 11:05
[2021-05-19] MEDS ORDERED: RIVAROXABAN 20 MG TAB PO SCH (09:00)
[2021-05-19] MEDS: traMADol HCL 50 MG TABLET PO PRN (09:33)
[2021-05-19] MEDS: LOSARTAN POTASSIUM 50 MG TAB PO SCH (09:33)
[2021-05-19] MEDS: MAGNESIUM OXIDE 400 MG TAB PO SCH (09:33)
[2021-05-19] MEDS: PANTOprazole 40 MG TAB PO SCH (09:33)
[2021-05-19] MEDS: hydrALAZINE 10 MG TAB PO SCH (09:33)
[2021-05-19] MEDS: RIVAROXABAN 20 MG TAB PO SCH (09:33)
[2021-05-19] MEDS: carvediloL 6.25 MG TAB PO SCH (09:33)
--- NOTE | 2021-05-19 14:44 | Discharge Summary ---
Date of Service May 19, 2021 Admission HPI Per Admitting Provider This is a 68-year-old female well-known to us this is a study decline in status with known severe spinal stenosis. Is been progressive in nature. She now has severe pain bilateral buttocks extending down the left greater than right leg. Limits her ability to stand and ambulate any distance. Principal Diagnosis Lumbar spinal stenosis with neurogenic claudication Discharge Data Allergies Allergy/AdvReac Type Severity Reaction Status Date / Time oxycodone Allergy Unknown adverse Verified 05/14/21 16:20 effects on blood pressure clonidine AdvReac Intermediate Unsure of Verified 05/14/21 16:20 reaction prednisone AdvReac Intermediate WEAKNESS Verified 05/14/21 16:20 lisinopril AdvReac Unknown cough Verified 05/14/21 16:20 morphine AdvReac Unknown ADVERSE Verified 05/14/21 16:20 EFFECTS OF BLOOD PRESSURE Consultations 05/14/21 15:33 ED Decision to Admit Stat 05/14/21 18:19 Consult Internal Medicine Routine Procedures Performed Operation Date: 05/15/21 11:50 Actual Procedures p L3-S1 Decompression Fusion(Bilateral) - Enrico Little DO Ordered Studies 05/15/21 [place] lumbar spine 2-3V Routine Hospital Course (1) Neurogenic claudication due to lumbar spinal stenosis: Patient is admitted to hospital with significant back and leg pain underwent multilevel lumbar decompression fusion following day tolerates well. Postop day 1 she was up and ambulating with physical therapy progressed the postop day #2 on postop day 3 CHUCK drain decreased probably. Excellent strength testing. Was highly functional subsequent discharge home. Discharge orders instructions on the chart for further review. Total Time Total Time Spent Total Time Spent (In Minutes): 20 minutes Discharge Plan Discharge Items Patient Disposition: Home - Self-Care Reason For Visit: LUMBAR STENOSIS Discharge Diagnosis: Lumbar spinal stenosis with neurogenic claudication Activity: As commented below Non-emergency contact: Primary Care Provider Call non-emergency contact if: you have any medication questions Follow-up/Referrals: Tessie Pathak DO [Primary Care Provider] - Diet: Regular Addtl Attending Provider Instructions: ACTIVITY RECOMMENDATIONS: SELF CARE INSTRUCTIONS AFTER THORACIC/LUMBAR FUSIONS 1. You may walk to your tolerance. It is good exercise for your legs and back. Expect some back and intermittent leg aches and pains. 2. You may perform "counter-top" level activities (make a sandwich, yecenia with a project, etc.). 3. No bending or lifting of more than 10 pounds or back twisting of any nature (roll like a log when turning in bed). 4. You may ride in a car for 20-30 minutes at a time. No driving until after your first visit with your doctor. 5. Frequent changes of position and restricting sitting to 30 minutes at a time will help limit the amount of back spasms and stiffness you may experience. 6. You may discontinue the use of ambulatory aids (cane, crutches, etc.) once your strength and confidence allow. 7. You may fine grade operator the shower and let water strike your incision when you arrive home at least once daily. Do not take a tub bath, sit in a hot tub or go into a swimming pool until after your first recheck in the office. SPECIAL CARE INSTRUCTIONS: VERY IMPORTANT TO READ AND REVIEW A. Your surgical incision has been closed with a cosmetic suture under the skin that will dissolve in about 6 weeks. In 14 days, you can use a pair of clean scissors and cut the suture that is left outside of the skin at the ends of your incision. 1. The small skin tapes can be removed 7 days after surgery if they have not fallen off by that point. 2. You may keep the wound open to air as much as possible to promote healing after post-op day number 5 unless told otherwise by your doctor. 3. If you think the wound looks like it is becoming infected (redness or worsening drainage) and/or you are experiencing fever, chill or worsening back pain and muscle spasms, contact the office so that we may evaluate you as soon as possible. B. Complications are uncommon, but please contact us if you have any signs or symptoms of: 1. wound infection (fever higher than 102.5 degrees F, redness, separation of wound, drainage, or increasing pain from the incision) 2. blood clots in legs (pain, swelling, redness and warmth in legs) 3. urinary tract infection (fever higher than 102.5 degrees F, burning upon urination or increased frequency of urination) 4. nerve problems (inability to walk on your toes or heels, numbness, loss of bowel or bladder control) 5. any other symptoms that concern you C. Please call the office at if you have any concerns or questions about your operation or recovery. D. No smoking! Smoking drastically decreases the chance of a solid fusion. E. Do not take any anti-inflammatory medications (Indocin, Advil, Motrin, Aspirin, Naprosyn, etc.) as these may inhibit the chance of a solid fusion. Tylenol is okay to take for pain. MANAGING PAIN AFTER SPINAL SURGERY 1. Narcotic medication is intended for short-term use and will be provided for surgical pain. Surgical pain usually lasts for a period of 4-6 weeks. Narcotic medication includes Percocet, Vicodin, Darvocet, Tylenol #3 or Lortab. 2. Longer-term pain is more appropriately treated with non-narcotic medication such as Tylenol ES. 3. Muscle spasm is not appropriately treated with narcotics. Muscle relaxers such as Soma, Flexeril or Skelaxin can be used along with Tylenol ES. 4. Remember that we all live with some "aches and pains". This is not unusual or uncommon after an injury or as we get older. a. Back pain is expected and may include muscle spasms for 4 to 6 weeks after surgery. The pain should gradually improve. If the pain worsens for no apparent reason, please contact the office. b. Intermittent leg pain may also be experienced and should not be concerned about unless it worsens for no apparent reason. If so, please contact the office. 5. We will provide appropriate medication within the normal guidelines of their prescribed use. We will also be very cautious and aware of potential abuse and extended duration of patients' medication needs. a. Pain medications are for your comfort and to assist with sleep and rest so that the tissue can heal. They are not provided in order to return to normal activity and should not be used through the day. To do so or worsening pain at night can result from ongoing tissue damage and development of tolerance to the prescribed medicine. 6. Please allow 2-3 days to process refills. Prescriptions will not be mailed but must be picked up at the office. FOLLOW UP VISIT: Keep your scheduled follow-up appointment. Any questions, please call the office at . Pending Studies at Discharge: No Stand-Alone Forms: My [employer], Smoking Cessation Medications and DC Order Prescriptions: New tramadol 50 mg tablet 50 mg PO Q6H PRN (Reason: pain, moderate) Qty: 30 RF: 0 Continued Xarelto 20 mg Tablet 20 mg PO QDD Qty: 0 RF: 0 hydralazine 10 mg Tablet 10 mg PO TID RF: 0 chlorthalidone 25 mg Tablet 25 mg PO QAM RF: 0 carvedilol 6.25 mg Tablet 6.25 mg PO BID RF: 0 clonazepam 1 mg Tablet 1 mg PO HS PRN (Reason: Restless Leg(S)) RF: 0 albuterol sulfate [Ventolin HFA] 90 mcg/actuation Hfa Aerosol Inhaler 2 puff INHALATION Q4H PRN (Reason: Cough) RF: 0 cholecalciferol (vitamin D3) 1,000 unit Capsule 1,000 unit PO BID RF: 0 calcium carbonate [Calcium 600] 600 mg calcium (1,500 mg) Tablet 600 mg PO QAM RF: 0 losartan 50 mg Tablet 50 mg PO QAM RF: 0 amoxicillin 500 mg Capsule 500 mg PO DAILY PRN (Reason: dental) RF: 0 atorvastatin 10 mg tablet 10 mg PO HS RF: 0 valacyclovir 500 mg Tablet 1,000 mg PO DAILY PRN (Reason: Cold Sores) RF: 0 potassium chloride 10 mEq tablet,ER particles/crystals 10 meq PO QDL RF: 0 famotidine 40 mg Tablet 40 mg PO HS RF: 0 sucralfate [Carafate] 1 gram Tablet 1,000 mg PO AC RF: 0 magnesium oxide 500 mg Tablet 1,000 mg PO BIDM RF: 0 Discharge Orders: Discharge Order (Routine); Ordered 05/19/21 Ordered By: Enrico Chavira/Other Patient Handouts: After Back Surgery: Going Home Admission Data Admit Date/Time: 05/14/21 15:49 Attending Provider: Enrico Little Admit Provider: Enrico Little Primary Care Provider: Tessie Pathak Other Providers: Enrico Little ; Yolanda Bryan ; Ryland Ugalde Other Interventions: Discharge Summary Assessment (RN) Last Done: 05/19/21 12:20
== END 2021-05-19 13:50 | disposition home or self-care (01) | DRG 454 ==
LOC: ED 12:11 → 3N 15:49

== ENCOUNTER 2024-04-24 08:53 | Observation (INO) ==
--- NOTE | 2024-03-31 10:57 | PAT Medication Instructions ---
Medication Instructions Date of Service March 31, 2024 Home Medications albuterol sulfate 90 mcg/actuation aerosol inhaler (Ventolin HFA) 2 puff inhalation Q4H PRN Cough chlorthalidone 25 mg tablet 25 mg PO QAM cholecalciferol (vitamin D3) 25 mcg (1,000 unit) capsule 1,000 unit PO BID clonazepam 1 mg tablet 1 mg PO HS PRN Restless Leg(S) hydralazine 10 mg tablet 10 mg PO BID amoxicillin 500 mg capsule 2,000 mg PO DIRECTED PRN PRIOR TO DENTAL APPT. atorvastatin 10 mg tablet 10 mg PO HS losartan 50 mg tablet 50 mg PO QAM potassium chloride 10 mEq tablet,extended release(part/cryst) (Klor-Con M) 10 meq PO HS famotidine 40 mg tablet 40 mg PO HS PRN Heartburn fluticasone propionate 50 mcg/actuation nasal spray,suspension 2 spray intranasal DAILY PRN sinus congestion furosemide 20 mg tablet 20 mg PO QAM loratadine 10 mg tablet (Claritin) 10 mg PO DIRECTED PRN Congestion magnesium oxide 400 mg PO BID spironolactone 25 mg tablet 25 mg PO QAM valacyclovir 1 gram tablet (Valtrex) 2,000 mg PO Q12H PRN Cold Sores Lactobacillus acidophilus 10 billion cell capsule (Probiotic) 10,000 mmu cells PO QAM alendronate 70 mg tablet 70 mg PO WK calcium 600 mg (as carbonate)-vitamin D3 5 mcg (200 unit) tablet (Calcium 600 + D(3)) 1 tab PO QAM carvedilol 12.5 mg tablet 12.5 mg PO BID rivaroxaban 15 mg tablet (Xarelto) 15 mg PO PM MEDICATION INSTRUCTIONS: Continue as directed albuterol sulfate 90 mcg/actuation aerosol inhaler (Ventolin HFA) 2 puff inhalation Q4H PRN Cough (use if needed; BRING TO HOSPITAL) amoxicillin 500 mg capsule 2,000 mg PO DIRECTED PRN PRIOR TO DENTAL APPT. fluticasone propionate 50 mcg/actuation nasal spray,suspension 2 spray intranasal DAILY PRN sinus congestion alendronate 70 mg tablet 70 mg PO WK ASK your prescriber and surgeon rivaroxaban 15 mg tablet (Xarelto) 15 mg PO PM (for spinal anesthesia: must be off of Xarelto/rivaroxaban for at least 72 hours) DO NOT take the morning of surgery spironolactone 25 mg tablet 25 mg PO QAM furosemide 20 mg tablet 20 mg PO QAM losartan 50 mg tablet 50 mg PO QAM chlorthalidone 25 mg tablet 25 mg PO QAM calcium 600 mg (as carbonate)-vitamin D3 5 mcg (200 unit) tablet (Calcium 600 + D(3)) 1 tab PO QAM cholecalciferol (vitamin D3) 25 mcg (1,000 unit) capsule 1,000 unit PO BID loratadine 10 mg tablet (Claritin) 10 mg PO DIRECTED PRN Congestion Lactobacillus acidophilus 10 billion cell capsule (Probiotic) 10,000 mmu cells PO QAM magnesium oxide 400 mg PO BID valacyclovir 1 gram tablet (Valtrex) 2,000 mg PO Q12H PRN Cold Sores Take morning of surgery With a small sip of water, OTHERWISE NOTHING TO EAT OR DRINK AFTER MIDNIGHT: carvedilol 12.5 mg tablet 12.5 mg PO BID hydralazine 10 mg tablet 10 mg PO BID Take evening before surgery carvedilol 12.5 mg tablet 12.5 mg PO BID cholecalciferol (vitamin D3) 25 mcg (1,000 unit) capsule 1,000 unit PO BID atorvastatin 10 mg tablet 10 mg PO HS potassium chloride 10 mEq tablet,extended release(part/cryst) (Klor-Con M) 10 meq PO HS clonazepam 1 mg tablet 1 mg PO HS PRN Restless Leg(S) famotidine 40 mg tablet 40 mg PO HS PRN Heartburn hydralazine 10 mg tablet 10 mg PO BID magnesium oxide 400 mg PO BID valacyclovir 1 gram tablet (Valtrex) 2,000 mg PO Q12H PRN Cold Sores Other Notes If you have any questions please call us at [phone] or [phone] or [phone] or [phone]
--- NOTE | 2024-04-10 10:57 | Anesthesiology Consultation ---
Date of Service April 10, 2024 Assessment & Plan (1) Encounter for pre-operative examination: - Infectious disease screening: Per assessment on 04/10/24- tested Covid positive 04/03/24. Patient has remained asymptomatic. Preop Covid testing done 04/10/24 ([place]) came back negative. Patient aware to contact surgeon/PAT if development of Covid-related symptoms prior to surgery. If patient remains asymptomatic, okay to proceed with 04/24 DOS as scheduled without further preop Covid testing and/or precautions per protocol. - Outpatient joint assessment: Pt currently scheduled for inpatient pathway. If surgeon requests review for outpatient joint pathway, patient is not recommended candidate for outpatient joint program from anesthesia standpoint based on janet ilable information. - Hx difficult intubation: L3-S1 decompression/fusion (05/15/2021): EZ mask. DVL with MAC- no view. DVL with Cisneros 2- no view. MD DVL with Cisneros 2- no view > Grade 1 view with Glidescope#3, ETT 7.5 at [facility] - Cardiology visit (12/02/23): "Paroxysmal atrial fibrillation status post pulmonary vein isolation ablation.. Longstanding hypertension, difficult to control.. Dyslipidemia with intolerance to rosuvastatin, atorvastatin, and pravastatin, on ezetimibe as of 06/14/2022.. Volume status: Normovolemic.. Options of management discussed with patient and spouse. Recommend trial reduction in hydralazine dosing from 3 times per day to 2 times per day noting observed blood pressure, fatigue, mild fluid retention. Recommend evaluation for suspected sleep apnea with Sleep Medicine consultation placed." > Sleep Medicine evaluation not scheduled until after upcoming surgery [06/2024]. - Cardiology note (04/13/24): "Proctor Text received regarding anticoagulation hold, possible spinal/neuraxial anesthesia. Ok to hold Xarelto x 3 days" Chart Review Chart Review: Acceptable Risk for Surgery and Patient seen in Pre Admission Testing Teaching & Discussion Pre-Anesthesia Teaching/Discussion Notes: Instructed NPO after midnight before surgery,except medications with 15 cc of water. Medication instructions provided according to the PAT guidelines. History Surgery Operation Date: 04/24/24 12:50 Proposed Procedures p Right Total Knee Arthroplasty - Delfin Vinson, Height/Weight Height: 5 ft 6 in Weight: 80.9 kg Allergies Allergy/AdvReac Type Severity Reaction Status Date / Time clonidine AdvReac Intermediate Unknown Verified 04/09/24 15:01 lisinopril AdvReac Intermediate Cough Verified 04/09/24 15:01 morphine AdvReac Intermediate Adverse BP Verified 04/09/24 15:01 effects oxycodone AdvReac Intermediate Adverse BP Verified 04/09/24 15:01 effects prednisone AdvReac Intermediate Weakness Verified 04/09/24 15:01 Medications Home Medications Medication Instructions Recorded Confirmed Last Taken albuterol sulfate 90 mcg/actuation 2 puff inhalation Q4H PRN Cough 05/03/18 03/31/24 05/10/21 aerosol inhaler (Ventolin HFA) chlorthalidone 25 mg tablet 25 mg PO QAM 05/03/18 03/31/24 11/15/21 cholecalciferol (vitamin D3) 25 1,000 unit PO BID 05/03/18 03/31/24 11/15/21 mcg (1,000 unit) capsule clonazepam 1 mg tablet 1 mg PO HS PRN Restless Leg(S) 05/03/18 03/31/24 05/13/21 hydralazine 10 mg tablet 10 mg PO BID 05/03/18 03/31/24 11/15/21 amoxicillin 500 mg capsule 2,000 mg PO DIRECTED PRN PRIOR 10/23/20 03/31/24 Unknown TO DENTAL APPT. atorvastatin 10 mg tablet 10 mg PO HS 10/23/20 03/31/24 11/15/21 losartan 50 mg tablet 50 mg PO QAM 10/23/20 03/31/24 11/15/21 potassium chloride 10 mEq 10 meq PO HS 10/23/20 03/31/24 11/15/21 tablet,extended release(part/cryst) (Klor-Con M) famotidine 40 mg tablet 40 mg PO HS PRN Heartburn 02/14/21 03/31/24 05/13/21 fluticasone propionate 50 2 spray intranasal DAILY PRN sinus 11/16/21 03/31/24 11/15/21 mcg/actuation nasal congestion spray,suspension furosemide 20 mg tablet 20 mg PO QAM 11/16/21 03/31/24 Unknown loratadine 10 mg tablet (Claritin) 10 mg PO DIRECTED PRN Congestion 11/16/21 03/31/24 Unknown magnesium oxide 400 mg PO BID 11/16/21 03/31/24 11/15/21 spironolactone 25 mg tablet 25 mg PO QAM 11/16/21 03/31/24 Unknown valacyclovir 1 gram tablet 2,000 mg PO Q12H PRN Cold Sores 11/16/21 03/31/24 Unknown (Valtrex) Lactobacillus acidophilus 10 10,000 mmu cells PO QAM 03/31/24 03/31/24 Unknown billion cell capsule (Probiotic) alendronate 70 mg tablet 70 mg PO WK 03/31/24 03/31/24 Unknown calcium 600 mg (as 1 tab PO QAM 03/31/24 03/31/24 Unknown carbonate)-vitamin D3 5 mcg (200 unit) tablet (Calcium 600 + D(3)) carvedilol 12.5 mg tablet 12.5 mg PO BID 03/31/24 03/31/24 Unknown rivaroxaban 15 mg tablet (Xarelto) 15 mg PO PM 03/31/24 03/31/24 Unknown Past Medical History Medical History Chronic hyponatremia Baseline sodium low 130s per chart review Dyslipidemia Per records GERD (gastroesophageal reflux disease) History of atrial fibrillation Follows with Dr. Zambrano Taking Xarelto History of COVID-19 06/2022- mild cold symptoms > resolved Hypertension Osteoporosis Restless leg syndrome Suspected sleep apnea Per [facility] cardio records Sleep medicine evaluation scheduled 06/2024 Exercise / Class Metabolic Activity III < 4 Walking/Shop/Light housework Past Family History Family History Other Family history non-contributory No family history of adverse response to anesthesia Past Surgical History Surgical History History of cardiac radiofrequency ablation R/t a. fib History of left knee replacement Hx of bilateral cataract extraction Hx of colonoscopy Hx of knee surgery Left knee, "freeze procedure" with UOC S/P lumbar fusion L3-S1 decompression/fusion (05/15/2021): EZ mask. DVL with MAC- no view. DVL with Cisneros 2- no view. DVL with Cisneros 2- no view > Grade 1 view with Glidescope#3, ETT 7.5 at [facility] Past Anesthesia History No Family Hx of Anesthesia Complications and Other (Adverse BP response (per patient, felt related to perioperative morphine/oxycodone), Awareness with Left knee replacement) History of PONV No Hx of Motion Sickness and History of PONV (R/t morphine/oxycodone used perioperatively) Social History Smoking Status: Never smoker Do You Dip or Chew Tobacco: No Hx Alcohol Use: Yes Alcohol type: wine alcohol intake frequency: a few times a month Hx Substance Use: No substance use type: does not use Review of Systems Patient denies chest pain, shortness of breath, fever, chills, cough, wheezing, palpitations. Physical Exam Vital Signs BP 126/80 P 76 TEMP 98.0 SP02 96%RA RESP 18 Physical Full cervical extension range of motion. Full TMJ range of motion. TMD 2.5 finger breaths (small chin) Mallampati Score II Dentition: upper/lower partial Lungs: clear throughout to auscultation Cardiac: regular rate and rhythm, no murmurs noted Spine: normal Carotid arteries: negative bruit Extremities: no LE edema Lab Results Anesthesia Preop Results Results Anesthesia Widget: WBC 6.41 K/ul (4.8-10.8) 04/10/24 Hgb 13.1 g/dl (12.0-16.0) 04/10/24 Hct 37.5 % (37.0-47.0) 04/10/24 Plt 314 K/uL (130-400) 04/10/24 Na 131 mmol/L (136-145) L 04/10/24 K 4.9 mmol/L (3.5-5.1) 04/10/24 Cl 101 mmol/L (98-107) 04/10/24 CO2 27 mmol/L (21-32) 04/10/24 BUN 34 mg/dl (6-23) H 04/10/24 Creat 0.88 mg/dl (0.6-1.2) 04/10/24 Glucose Level 101 mg/dl (70-99(Fasting)) H 04/10/24 PT 11.9 Seconds (9.0-12.0) 04/10/24 PTT 33 Seconds (21-31) H 04/10/24 INR 1.1 (0.9-1.1) 04/10/24 COVID-19 PCR NEGATIVE (Negative) 04/10/24 Blood Type B Positive 04/10/24 Antibody Screen NEGATIVE 04/10/24 Testing Electrocardiogram Date: 12/24/23 Findings: + NSR @ (81) Chest X-Ray Date: 12/24/23 FINDINGS: No lines and tubes are seen. Calcified aortic knob is seen. The lungs are clear. No evidence of pleural effusion or pneumothorax. IMPRESSION: No acute chest disease. Echocardiogram Date: 10/16/23 LVEF 55-59%. LV wall motion is normal. Mildly increased concentric LV wall t hickness. Grade 2 diastolic dysfunction. Mild TR. A trivial posterior loculated pericardial effusion is present. Stress Test Date: 10/16/23 Type: nuclear Lexiscan nuclear myocardial perfusion scan is normal without evidence of inducible ischemia or myocardial scar. Gated SPECT images reveals normal myocardial thickening and wall motion. LVEF > 70%.
--- NOTE | 2024-04-23 06:47 | History & Physical Report ---
Date of Service April 23, 2024 History of Present Illness Chief Complaint: Osteoarthritis of the right knee. Primary Care Provider: DO Melchor Palacio Allergies Allergy/AdvReac Type Severity Reaction Status Date / Time clonidine AdvReac Intermediate Unknown Verified 04/09/24 15:01 lisinopril AdvReac Intermediate Cough Verified 04/09/24 15:01 morphine AdvReac Intermediate Adverse BP Verified 04/09/24 15:01 effects oxycodone AdvReac Intermediate Adverse BP Verified 04/09/24 15:01 effects prednisone AdvReac Intermediate Weakness Verified 04/09/24 15:01 Home Medications Medication Instructions Recorded Confirmed Type albuterol sulfate 90 mcg/actuation 2 puff inhalation Q4H PRN Cough 05/03/18 03/31/24 History aerosol inhaler (Ventolin HFA) chlorthalidone 25 mg tablet 25 mg PO QAM 05/03/18 03/31/24 History cholecalciferol (vitamin D3) 25 1,000 unit PO BID 05/03/18 03/31/24 History mcg (1,000 unit) capsule clonazepam 1 mg tablet 1 mg PO HS PRN Restless Leg(S) 05/03/18 03/31/24 History hydralazine 10 mg tablet 10 mg PO BID 05/03/18 03/31/24 History amoxicillin 500 mg capsule 2,000 mg PO DIRECTED PRN PRIOR 10/23/20 03/31/24 History TO DENTAL APPT. atorvastatin 10 mg tablet 10 mg PO HS 10/23/20 03/31/24 History losartan 50 mg tablet 50 mg PO QAM 10/23/20 03/31/24 History potassium chloride 10 mEq 10 meq PO HS 10/23/20 03/31/24 History tablet,extended release(part/cryst) (Klor-Con M) famotidine 40 mg tablet 40 mg PO HS PRN Heartburn 02/14/21 03/31/24 History fluticasone propionate 50 2 spray intranasal DAILY PRN sinus 11/16/21 03/31/24 History mcg/actuation nasal congestion spray,suspension furosemide 20 mg tablet 20 mg PO QAM 11/16/21 03/31/24 History loratadine 10 mg tablet (Claritin) 10 mg PO DIRECTED PRN Congestion 11/16/21 03/31/24 History magnesium oxide 400 mg PO BID 11/16/21 03/31/24 History spironolactone 25 mg tablet 25 mg PO QAM 11/16/21 03/31/24 History valacyclovir 1 gram tablet 2,000 mg PO Q12H PRN Cold Sores 11/16/21 03/31/24 History (Valtrex) Lactobacillus acidophilus 10 10,000 mmu cells PO QAM 03/31/24 03/31/24 History billion cell capsule (Probiotic) alendronate 70 mg tablet 70 mg PO WK 03/31/24 03/31/24 History calcium 600 mg (as 1 tab PO QAM 03/31/24 03/31/24 History carbonate)-vitamin D3 5 mcg (200 unit) tablet (Calcium 600 + D(3)) carvedilol 12.5 mg tablet 12.5 mg PO BID 03/31/24 03/31/24 History rivaroxaban 15 mg tablet (Xarelto) 15 mg PO PM 03/31/24 03/31/24 History Past Med/Surg History Problem List Right knee DJD Neurogenic claudication due to lumbar spinal stenosis Herniated lumbar intervertebral disc (Acute) Encounter for pre-operative examination Migraine (Chronic) Medical History Chronic hyponatremia Baseline sodium low 130s per chart review Dyslipidemia Per records GERD (gastroesophageal reflux disease) History of atrial fibrillation Follows with Dr. Zambrano Taking Xarelto History of COVID-19 06/2022- mild cold symptoms > resolved Hypertension Osteoporosis Restless leg syndrome Suspected sleep apnea Per [facility] cardio records Sleep medicine evaluation scheduled 06/2024 Surgical History History of cardiac radiofrequency ablation R/t a. fib History of left knee replacement Hx of bilateral cataract extraction Hx of colonoscopy Hx of knee surgery Left knee, "freeze procedure" with UOC S/P lumbar fusion L3-S1 decompression/fusion (05/15/2021): EZ mask. DVL with MAC- no view. DVL with Cisneros 2- no view. DVL with Cisneros 2- no view > Grade 1 view with Glidescope#3, ETT 7.5 at [facility] Family History Other Family history non-contributory No family history of adverse response to anesthesia Social History Smoking Status: Never smoker Second Hand Exposure: No; Do You Dip or Chew Tobacco: No; Tobacco Cessation Education Requested by Patient: No Hx Alcohol Use: Yes Alcohol type: wine Hx Substance Use: No Preferred Language: Fijian Communication Ability: Effective Apple Peeler Operator Required: No Beliefs That Will Affect Care: None marital status: Current Living Situation: Spouse Other Information That Helps Us Care for You: No Feels Safe at Home: Yes Safety Concerns: Feels Safe At This Time Assistive Devices: Denture - Upper, Denture - Lower and Glasses Review of Systems All systems reviewed & are unremarkable except as noted in HPI & below. Physical Exam . Results & Data Results & Data Laboratory Results . Diagnostic Findings . PG Care Time/CCT Total # of Minutes Spent Total Time Spent with Patient: Total time spent is greater than 50% in coordination of care (as documented) at patient's floor/unit and/or counseling patient: Coding
[~2024-04-24 08:53] MED LIST changes: -ACYC-57 PO; -AMLO2.5T PO; +BUPIVACAINE 0.25% PF 30 ML VIAL ONE; +BUPIVACAINE 0.5 % 5 MG/1 ML PF 10ML VIAL ONE; -CALC-393 PO; -CHOL1000 PO; -CRG625 PO; -FLEC150T PO; -HYDR-4715 PO; -HYG25 PO; -KLN1X PO; -MAGN400T6 PO; -MOME6000 NAE; -POTA20TA13 PO; -RANI150T85 PO; -VNTHFA/IN INH; -XRL20 PO
[2024-04-24] MEDS: GABAPENTIN 300 MG CAP PO SCH (09:43)
[2024-04-24] MEDS: LR 500ML BOLUS, THEN 15ML/HR IV SCH (09:43)
[2024-04-24] MEDS: ACETAMINOPHEN 500 MG TAB PO SCH (09:43)
[2024-04-24] MEDS: LR 60ML/HR IV SCH (09:43)
[2024-04-24] MEDS: FAMOTIDINE 20 MG TAB PO SCH (09:44)
--- OUTSIDE RECORDS SUMMARY | 2024-04-24 10:22 | External Medical Summary | Summary of Care ---
Author Name Unknown Organization [facility] Address [address] [place] [address] Phone [phone] Care Team Providers Care Undercoater Name Role Phone Tessie Pathak DO Primary Care Provider Reason for Visit * Reason Onset Date Comments Health Maintenance 04/15/2024 Encounter Details Date Type Department Care Team (Late st Contact Info) Description 04/15/2024 Telephone Family Practice [facility] [address] [place] [address] Tessie Pathak DO [address] [place] [address] Health Maintenance Allergies Active Allergy Reactions Criticality Noted Date Comments Atorvastatin Other (Please comment) 12/18/2021 Joint pain; myalgia Clonidine Medium 09/07/2018 Other reaction(s): 0 Hydrocodone Nausea/vomiting 11/22/2014 Lisinopril Cough 04/18/2015 Morphine Nausea/vomiting Medium 04/17/2018 Oxycodone Nausea/vomiting 11/22/2014 Prednisone Other (Please comment) 02/11/2014 Weakness documented as of this encounter (statuses as of 04/15/2024) Medications Medication Sig Dispensed Refills Start Date End Date Status CALCIUM 600 TABS 600 MG ORIndications:Menopa use 2 po daily 0 05/06/1998 Active VITAMIN D 1000 UNIT PO CAPSIndications:Valarie min D deficiency,Pain in limb 1 capsule twice a day 60 Cap 1 06/08/2010 Active MAGNESIUM 400 MG PO CAPS 1 tablet by mouth twice daily Active amoxicillin (AMOXIL) 500 MG Capsule Take 4 Capsules by mouth as needed. Before dentist appt. 02/11/2019 Active Loratadine 10 MG Oral Tablet (Claritin)Indication s:Sinus headache,Post-nasal drip Take 1 Tab by mouth daily. x1-2 wks then as needed-otc 30 Tab 5 09/02/2020 Active Acetaminophen 500 MG Oral Tablet (Tylenol) Take 2 Tablets by mouth every 8 hours as needed. Active Spacer/Aero-Holding Chambers Device Use with inhaler. 1 Each 08/07/2022 Active Carvedilol 12.5 MG Oral Tablet (Coreg)Indications:P aroxysmal atrial fibrillation (HCC) TAKE 1 TABLET BY MOUTH IN THE MORNING AND 1 TAB BEFORE BEDTIME WITH FOOD 180 Tablet 3 05/21/2023 Active Losartan Potassium 50 MG Oral Tablet (Cozaar)Indications: HTN, goal below 140/90 Take 1 Tab by mouth daily. 90 Tablet 3 07/10/2023 Active Furosemide 20 MG Oral Tablet (Lasix)Indications:H TN, goal below 140/90 TAKE 1 TABLET BY MOUTH ONCE DAILY IN THE MORNING 90 Tablet 3 07/09/2023 Active Spironolactone 25 MG Oral Tablet (Aldactone)Indicatio ns:HTN, goal below 140/90 TAKE 1 TABLET BY MOUTH ONCE DAILY IN THE MORNING 90 Tablet 3 08/05/2023 Active valACYclovir HCl 1 GM Oral Tablet (Valtrex) Take 2 Tabs by mouth every 12 hours. for cold sores 4 Tablet 11 08/15/2023 Active Omeprazole 40 MG Oral Capsule Delayed Release (PriLOSEC)Indication s:Gastroesophageal reflux disease with esophagitis without hemorrhage Take 1 Capsule by mouth in the morning. 1 hour before the first meal of the day. 30 Capsule 11 01/01/2024 Active Albuterol Sulfate HFA 108 (90 Base) MCG/ACT Inhalation Aerosol SolutionIndications: Viral URI with cough,Seasonal allergies Inhale 2 Puffs by mouth every 4 hours as needed for Allergies or Cough. 36 g 01/01/2024 Active Fluticasone Propionate 50 MCG/ACT Nasal Suspension (Flonase)Indications :Seasonal allergies Administer 2 Sprays into each nostril in the morning. 16 g 11 01/01/2024 Active Rivaroxaban 15 MG Oral Tablet (Xarelto) Take 1 Tablet by mouth daily with dinner. 90 Tablet 2 02/04/2024 Active clonazePAM 1 MG Oral Tablet (KlonoPIN)Indication s:Restless leg syndrome TAKE ONE TABLET BY MOUTH AT BEDTIME NEEDED 30 Tablet 5 02/17/2024 Active hydrALAZINE HCl 10 MG Oral Tablet (Apresoline)Indicati ons:HTN, goal below 130/80 Take 1 Tablet by mouth in the morning and 1 Tablet before bedtime. 180 Tablet 1 02/17/2024 Active Alendronate Sodium 70 MG Oral Tablet (Fosamax) Take 1 Tablet by mouth once a week. 12 Tablet 1 02/17/2024 Active documented as of this encounter (statuses as of 04/15/2024) Active Problems Problem Noted Date Diagnosed Date High risk for fracture due to osteoporosis by DE XA scan 05/13/2023 Protracted URI 08/07/2022 History of 2019 novel coronavirus disease (COVID -19) 08/07/2022 Chronic kidney disease, stage 3a 08/06/2022 Overview: Per CKD protocol Retinal hemorrhage of left eye 08/18/2021 Overview: Noted by Dr[facility] in 07/2021 History of lumbar laminectomy for spinal cord de compression 06/25/2021 Paroxysmal atrial fibrillation 08/25/2020 S/P ablation of atrial fibrillation 06/05/2018 Seasonal allergic rhinitis 10/24/2017 Diastolic dysfunction 10/04/2016 Knee joint replacement status 12/06/2014 Restless leg syndrome 06/05/2005 Esophageal reflux 06/05/2000 HTN, goal below 140/90 05/06/1998 documented as of this encounter (statuses as of 04/15/2024) Resolved Problems Problem Noted Date Diagnosed Date Resolved Date Hypokalemia 10/29/2017 10/13/2018 Postnasal drip 10/24/2017 04/24/2018 PSVT (paroxysmal supraventri cular tachycardia) 05/23/2016 10/13/2018 Atypical chest pain 04/18/2015 04/24/20 18 Cough due to DAI inhibitor 04/18/2015 1 06/24/2017 Atrial fibrillation 02/12/2014 06/09/20 19 Special screening for malign ant neoplasms, colon 11/06/2005 04/24/2018 Overview: Colonoscopy 10/22/05--(2) hyperplastic polyps, repeat 10 years GERD (gastroesophageal reflux disease) 06/05/2005 06/13/2007 OTHER 04/24/2004 03/25/2017 Overview: Sigmoidoscopy 2000 Rosacea 03/11/2002 06/09/2019 documented as of this encounter (statuses as of 04/15/2024) Immunizations Name Administration Dates Next Due COVID-19 mRNA, LNP-s, No Pre serve, 2-Dose Series (Moderna) 12/27/2021,08/20/2020,07/16/2020 COVID-19, mRNA, LNP-s, PF, B ooster, 100mcg/0.5mg (Moderna) 04/18/2021 Pneumococcal Conjugate Vacc, 13 Valent (Prevnar) 09/17/2014 Pneumococcal Polysaccharide PPV23 (Pneumovax) 06/29/2008 Season Influenza, Quad, PF, Adjuvanted, 65+ Yrs, IM (FLUAD) 03/16/2020 Seasonal Influenza Vac., MDV , IM, 0.5 mL (Fluzone) 03/16/2014,04/02/2013,03/18/2012,04/03,04/04/2010,03/11/2009,06/03/2008 ,04/02/2007,06/06/2006 Seasonal Influenza Virus Vac cine, Unspecified Formulation 03/27/2022,03/07/2021,03/16/2020,03/27,03/24/2018,03/18/2017,03/20/2016 ,03/28/2015,03/16/2014,04/02/2013,02/23,04/03/2011,04/04/2010, 9,06/03/2008,04/02/2007,06/06/2006,02/2005,04/26/2003 Seasonal Influenza, High Dos e, Trivalent, PF, IM (Fluzone HD) 03/16/2024 Seasonal Influenza, PF, 6 M & above, IM , (FluLaval or Fluzone) 03/27/2019,03/24/2018,03/18/2017 Seasonal Influenza, Quadriva lent Hd (Fluzone Hd) 03/14/2023,03/27/2022,03/07/2021 Seasonal Influenza, Quadriva lent, No Preserve, IM 03/20/2016,03/28/2015 TDAP (age 10 and older)(Boostrix) 11/13/2021,07/2015 Varicella Zoster Vaccine (Adult) 05/12/2013 Zoster Vaccine Recombinant (Shingrix) 05/09/2020 ,02/22/2020 documented as of this encounter Social History Tobacco Use Types Packs/Day Years Used Date Smoking Tobacco: Never Smokeless Tobacco: Never Alcohol Use Standard Drinks/Week Comments Not Currently 0 (1 standard drink = 0.6 oz pur e alcohol) 2 drinks a week if that AUDIT-C Answer Date Recorded Q1: How often do you have a drink containing alc ohol? 2-3 times a week 12/09/2020 Average Number of Drinks Not on file 021 Q3: How often do you have si x or more drinks on one occasion? Not asked 12/09/2020 PHQ-2 Answer Date Recorded PHQ Adult Total Score 0 12/09/2020 Hunger Vital Sign Answer Date Recorded Within the past 12 months, y ou worried that your food would run out before you got the money to buy more. Never true 12/21/19 22 Within the past 12 months, t he food you bought just didn't last and you didn't have money to get more. Never true 12/20/2021 Sex and Gender Information Value Date Recorded Sex Assigned at Female 03/13/2024 2:12 PM EDT Gender Identity Female 03/13/2024 2:12 PM EDT Sexual Orientation Not on file Job Start Date Occupation Industry Not on file Not on file Not on file documented as of this encounter Miscellaneous Notes * Telephone Encounter - Sheri PageROSIE - 04/15/2024 10:36 AM EDT Care Gaps Comprehensive Care Outreach Last Office/Telemedicine Visit: 02/11/2024 (in office), Visit date not found (telemedicine) Next Office Visit: Visit date not found Hemoglobin AIC Results: Lab Results Component Value Date/Time HEMOGLOBIN A1C - [facility] 5.6 08/17/2021 03:18 PM HEMOGLOBIN A1C - [facility] 5.2 02/08/2021 08:14 AM BP Readings from Last 1 Encounters: 02/11/24 112/64 Reviewed Health Maintenance below: Health Maintenance Topic Date Due Depression Screening 12/09/2021 Adult Wellness Visit 12/09/2021 COVID-19 Vaccine ( season) 2024 Albumin/Creatinine Ratio 03/07/2024 GFR 04/21/2024 CKD HGB USE SMARTSET 85490 05/24/2024 CKD PHOS USE SMARTSET 46301 06/06/2024 Ov 6 months jul labs Care Gap Outreach Action Taken: Left message documented in this encounter Plan of Treatment Upcoming Encounters Date Type Department Care Team (Late st Contact Info) Description 06/02/2024 10:00 AM EST Office Visit Cardiology, [facility] [address] [place] [address] Jose R Lyons PA-C [address] [place] [address] Scheduled Procedures Name Priority Associated Diagnoses Date/Ti me COLONOSCOPY FLEXIBLE PROXIMA L DIAGNOSTIC Recall History of colonic polyps Health Maintenance Due Date Last Done Comments Adult Wellness Visit 12/09/2021 12/09/2020 Depression Screening 12/09/2021 12/09/2020 COVID-19 Vaccine ( season) 2024 12/27/2021, 04/18/2021, 08/20/2020, Additional history exists Albumin/Creatinine Ratio 03/07/2024 03/07/2023 GFR 04/21/2024 10/21/2023, 04/2 10/2023, 06/06/2023, Additional history exists CKD HGB USE SMARTSET 75580 05/24/202405/24, 03/07/2023, 03/07/2023, Additional history exists CKD PHOS USE SMARTSET 19662 06/06/202405/24, 03/07/2023, 11/15/2014, Additional history exists Colonoscopy 01/28/2025 01/29/2020, 12/2019, 09/28/2014, Additional history exists DXA Scan 02/11/2026 02/12/2024, 12/23, 01/10/2022, Additional history exists DTap/Tdap Vaccines (3 - Td or Tdap) 11/14/2031 11/13/2021, 07/26/2015, 06/05/2005 Pneumococcal Vaccine: 65+ Years Completed 09/17/2014, 06/29/2008 RETIRED - COLONOSCOPY-EVERY 5 YRS AGES 18-100 Discontinued 01/29/2020, 01/29/2020, 09/28/2014, Additional history exists Zoster Vaccines Completed 05/09/2020, 01/24, 05/12/2013 VITAMIN D LEVEL ONCE IN A LIFETIME-USE SMARTSET# 33641 Completed 06/06/2023, 03/07/2021, 10/15/2018, Additional history exists Influenza Vaccine (FLU shot) Completed 03/16/2024, 03/14/2023, 03/27/2022, Additional history exists HPV (Gardasil) Vaccine Aged Out No lo nger eligible based on patient's age to complete this topic Hepatitis B Vaccine Aged Out No longe r eligible based on patient's age to complete this topic MENINGOCOCCAL (MENACTRA/MENVEO) Aged Out No longer eligible based on patient's age to complete this topic documented as of this encounter Medical Devices Implanted Type Area Explosive Ordnance Disposal Technician Device Identifier Shelf Expiration Date Model / Serial / Lot Lens Intraoc 24.5 - [id number] - [id number] Implanted:Qty: 1 on 08/04/2020 by Sam Puente MD at OR [facility] Left: Eye BAUSCH [employer] LOMB 09/21/2024 [id number] / [id number] / [id number] Lens Intraoc 24.5 - [id number] - [id number] Implanted:Qty: 1 on 08/18/2020 by Sam Puente MD at OR [facility] Right: Eye BAUSCH [employer] LOMB 05/23/2024 [id number] / [id number] / [id number] documented as of this encounter Advance Directives * Full Code (Latest Code Status on File) Date Activated Date Inactivated Comments 04/17/2018 3:33 PM 04/18/2018 2:43 PM This order reflects the patients wishes and were consensually agreed upon. Question Answer Comments Discussion of Advance Directives occurred with: Not Discussed Care Teams Undercoater Relationship Specialty Start Date End Date Tessie Pathak DO [address] [place] [address] PCP - General Family Medicine 02/22/11 documented as of this encounter
--- OUTSIDE RECORDS SUMMARY | 2024-04-24 10:22 | External Medical Summary | Summary of Care ---
Author Name Unknown Organization [facility] Address [address] [place] [address] Phone [phone] Care Team Providers Care Cyber Intel Planner Name Role Phone Tessie Pathak DO Primary Care Provider Reason for Visit * Reason Onset Date Comments Health Maintenance 04/15/2024 Encounter Details Date Type Department Care Team (Late st Contact Info) Description 04/15/2024 Telephone Family Practice [facility] [address] [place] [address] Tessie Pathak DO [address] [place] [address] Health Maintenance Allergies Active Allergy Reactions Criticality [...] MDV , IM, 0.5 mL (Fluzone) 03/16/2014,04/02/2013,03/18/2012,04/03,04/04/2010,03/11/2009,06/03/2008 ,04/02/2007,06/06/2006,05/02/2005,08/2002 Seasonal Influenza Virus Vac cine, Unspecified Formulation 03/27/2022,03/07/2021,03/16/2020,03/27,03/24/2018,03/18/2017,03/20/2016 ,03/28/2015,03/16/2014,04/02/2013,02/23,04/03/2011,04/04/2010, 9,06/03/2008,04/02/2007,06/06/2006,02/2005,04/26/2003 Seasonal Influenza, High Dos e, Trivalent, PF, IM (Fluzone HD) 03/16/2024 Seasonal Influenza, PF, 6 M & above, IM , (FluLaval or Fluzone) 03/27/2019,03/24/2018,03/18/2017 Seasonal Influenza, Quadriva lent Hd (Fluzone Hd) 03/14/2023,03/27/2022,03/07/2021 Seasonal Influenza, Quadriva lent, No Preserve, IM 03/20/2016,03/28/2015 TD, Preservative Free 06/05/2005 TDAP (age 10 and older)(Boostrix) 11/13/2021,07/2015 Varicella [...] as of this encounter Miscellaneous Notes * Addendum Note - Kristine Ramirez LPN - 04/15/2024 3:35 PM EDTAddended by: KRISTINE RAMIREZ on: 04/15/2024 03:35 PM Modules accepted: Orders * Telephone Encounter - Kristine Ramirez LPN - 04/15/2024 3:34 PM EDT Care Gaps Comprehensive Care Outreach Last [...] 03/07/2024 GFR 04/21/2024 CKD HGB USE SMARTSET 96384 05/24/2024 CKD PHOS USE SMARTSET 12759 06/06/2024 Spoke to patient. Declined ov Labs ordered for dec will walk in Having knee replacement next week Care Gap Outreach Action Taken: Spoke to patient * Telephone Encounter - Kristine Ramirez LPN - 04/15/2024 10:36 AM EDT Care Gaps [...] 12/09/2021 Adult Wellness Visit 12/09/2021 COVID-19 Vaccine () 02/23/2024 Albumin/Creatinine Ratio 03/07/2024 GFR 04/21/2024 CKD HGB USE SMARTSET 37103 05/24/2024 CKD PHOS USE SMARTSET 16751 06/06/2024 Ov 6 months jul labs Care Gap Outreach Action Taken: Left message documented in this encounter Plan of Treatment Upcoming Encounters Date Type Department Care Team (Late st Contact Info) Description 06/02/2024 10:00 AM EST Office Visit Cardiology, [facility] [address] [place] [address] Jose R Lyons PA-C [address] [place] [address] Scheduled Orders Name Type Priority Associated Diagnoses Orde r Schedule COMPREHENSIVE METABOLIC PANEL Lab Routine Chronic kidney disease, unspecified CKD stage Expected: 06/06/2024, Expires: 04/15/2025 ALBUMIN / CREATININE RATIO, URINE Lab Routine Chronic kidney disease, unspecified CKD stage Expected: 06/06/2024 (Approximate), Expires: 04/15/2025 PHOSPHORUS Lab Routine Chronic kidney disease, unspecified CKD stage Expected: 06/06/2024, Expires: 04/15/2025 CBC Lab Routine Chronic kidney disease, unspecified CKD stage Expected: 06/06/2024, Expires: 04/15/2025 Scheduled Procedures Name Priority Associated Diagnoses Date/Ti me COLONOSCOPY FLEXIBLE PROXIMA L DIAGNOSTIC Recall History of colonic polyps Health Maintenance Due Date Last Done Comments Adult Wellness Visit 12/09/2021 12/09/2020 Depression Screening 12/09/2021 12/09/2020 COVID-19 Vaccine ( season) 2024 12/27/2021, 04/18/2021, 08/20/2020, Additional history exists Albumin/Creatinine Ratio 03/07/2024 03/07/2023 GFR 04/21/2024 10/21/2023, 04/10/2023, 06/06/2023, Additional history exists CKD HGB USE SMARTSET 98712 05/24/202405/24, 03/07/2023, 03/07/2023, Additional history exists CKD PHOS USE SMARTSET 92852 06/06/202405/24, 03/07/2023, 11/15/2014, Additional history exists Colonoscopy [...] D LEVEL ONCE IN A LIFETIME-USE SMARTSET# 42204 Completed 06/06/2023, 03/07/2021, 10/15/2018, Additional history exists [...] this encounter Medical Devices Implanted Type Area Slubber Frame Changer Device Identifier Shelf Expiration Date Model / Serial / Lot Lens Intraoc 24.5 - [id number] - [id number] Implanted:Qty: 1 on 08/04/2020 by Sam Puente MD at OR [facility] Left: Eye BAUSCH [employer] LOMB 09/21/2024 [id number] / [id number] / [id number] Lens Intraoc 24.5 - [id number] - [id number] Implanted:Qty: 1 on 08/18/2020 by Sam Puente MD at OR [facility] Right: Eye BAUSCH & LOMB 05/23/2024 [id number] / [id number] / [id number] documented as of this encounter Visit Diagnoses Diagnosis Chronic kidney disease, unspecified CKD stage- Primary documented in this encounter Advance Directives * Full Code (Latest Code Status on File) Date Activated Date Inactivated Comments 04/17/2018 3:33 PM 04/18/2018 2:43 PM This order reflects the patients wishes and were consensually agreed upon. Question Answer Comments Discussion of Advance Directives occurred with: Not Discussed Care Teams Cyber Intel Planner Relationship Specialty Start Date End Date Tessie Pathak DO [address] [place] [address] PCP - General Family Medicine 02/22/11 documented as of this encounter
--- NOTE | 2024-04-24 10:38 | History & Physical Bridge Note ---
Date of Service April 24, 2024 History & Physical Bridge Note I have examined the patient, reviewed the History & Physical and in the interval since the performance of the History & Physical I have noted the following changes of clinical significance: no changes noted
[2024-04-24] MEDS: dexAMETHasone**PF** 10 MG/ML VIAL IV SCH (10:46)
[2024-04-24] MEDS ORDERED: ePHEDrine sulfate 50 MG/ML AMP IV PRN (10:58)
[2024-04-24] MEDS ORDERED: fentaNYL citrate PF 100 MCG/2 ML VIAL IV PRN (10:58)
[2024-04-24] MEDS ORDERED: ATROPINE SULFATE 0.1 MG/ML 10ML SYR IV PRN (10:58)
[2024-04-24] MEDS ORDERED: ONDANSETRON INJ 2 MG/ML 2 ML VIAL IV PRN ×2 (10:58→13:21)
[2024-04-24] MEDS ORDERED: MIDAZOLAM HCL 1 MG/ML 2ML VIAL ONE (11:18)
[2024-04-24] MEDS ORDERED: fentaNYL citrate PF 100 MCG/2 ML VIAL ONE (11:19)
[2024-04-24] MEDS ORDERED: PROPOFOL IV EMULSION 10 MG/ML 20 ML VIAL IV ONE (11:20)
[2024-04-24] MEDS ORDERED: ePHEDrine sulfate 50 MG/ML AMP ONE (11:23)
[2024-04-24] MEDS: TRANEXAMIC ACID 1,000 MG **IV Pre-op IV SCH (11:33)
[2024-04-24] MEDS: ceFAZolin 2000MG 2,000 MG/15 ML SYR IV SCH ×2 (11:47→20:28)
[2024-04-24] MEDS: ORTHO JOINT ANESTHETIC ONE (12:38)
[2024-04-24] MEDS: ROPIV 0.5% 246mg, Ketorolac 30mg, EPINEPHrine 0.5mg in NSS INFIL SCH (12:38)
[2024-04-24] MEDS: TRANEXAMIC ACID 1,000 MG **IV Intra-op IV SCH (12:45)
[2024-04-24] MEDS ORDERED: ONDANSETRON INJ 2 MG/ML 2 ML VIAL ONE (12:49)
--- NOTE | 2024-04-24 12:52 | Operative Report ---
PG Post Operative Report Pre & Post Diagnosis Operation Date: 04/24/24 11:00 Pre-Op Diagnosis: Right Knee Degnerative Joint Disease Post-Op Diagnosis: Right Knee Degnerative Joint Disease I identified the patient and participated in the time-out.: Yes Procedure Operation Date: 04/24/24 11:00 Actual Procedures p Right Total Knee Arthroplasty(Right) - Delfin Vinson DO Surgeon Delfin Vinson DO Fresh Work Inspector Lzia Haji PA-C Estimated Blood Loss 30 Findings Consistent with Post-Op Diagnosis Specimens Right femoral and tibial bone Description of Procedure Implants used: I used a Alexis Persona total knee arthroplasty system with a size 7 narrow PS femur, D tibia, 31 oval patella, and a size 12 CPS polyethylene bearing. All components were cemented in place with Biomet cement. Nicole arrived [facility] for the above procedure. She was seen in the preoperative holding area and the operative extremity was identified and signed. She was given a preoperative antibiotic, TXA, a spinal anesthetic and an adductor nerve block. She was taken back to the operating room and laid on the table in supine position. She was given basic sedation. The operative knee was then prepped and draped in sterile fashion. A timeout was done, and the patient and the operative extremity was properly identified. A midline incision was made directly over the patella. Dissection was taken down to the extensor mechanism. A subvastus arthrotomy was used. The medial retinaculum was released and the fat pad was mostly excised. The knee was flexed and the ACL, PCL, and meniscus were removed. A drill was sent down the center of the femoral canal followed by an intramedullary berto. Off that berto a distal femoral cutting block was placed. 9 mm was resected off the distal femur at 5 of valgus. A posterior referencing AP sizing guide was then placed on the distal femur. The femur measured to be a size 7. 2 drill holes were placed in 3 of external rotation. A 4-in-1 cutting block was then impacted into place. Anterior, posterior, and chamfer cuts were then made. The proximal tibia was then exposed. An external tibial alignment guide was placed. A tibial cut guide was then anchored in place and the proximal tibia was then resected. The posterior aspect of the knee was then opened up and any additional meniscus fragments and osteophytes were removed. The tibia measured to be a size D. The tibial plate was then placed in the appropriate rotation and the tibia was drilled and punched. Trial components were then placed. I used a size 12 CPS polyethylene insert. The knee was brought through a full range of motion and felt to be stable. The peg holes for the femoral component were then drilled. The patella was then everted and 9 mm was resected off the posterior aspect of the patella. The patella measured to be a size 31 oval. 3 peg holes were then drilled. A trial patella was placed. The knee was once again brought through a full range of motion and felt to be stable. Trial components were then removed. The surrounding soft tissues were injected with 100 cc of an orthopedic pain control cocktail. All components were then cemented into place with Biomet cement. The final polyethylene insert was then snapped into place. Once cement was dry the tourniquet was deflated. Hemostasis was obtained. A dilute betadyne lavage was then done for 3 minutes. The joint was then irrigated with normal saline solution. The subvastus arthrotomy was then closed with #1 Vicryl suture. The skin was closed with 2-0 Vicryl, 3-0V lock suture, and donita. A soft compressive dressing was placed. She was then transferred to a hospital bed and taken to the postanesthesia care unit in stable condition. She tolerated the procedure well. Liza Haji PA-C, was present for the entire procedure. He was critical for patient positioning, prepping, draping, retraction exposure, wound closure and application of sterile dressing. I attest to the content of the Intraoperative Record and any orders documented therein. Any exceptions are noted below.
[2024-04-24] MEDS ORDERED: MAGNESIUM HYDROXIDE SUSP 30 ML UDC PO PRN (13:21)
[2024-04-24] MEDS ORDERED: diphenhydrAMINE Capsule 25 MG CAP PO PRN (13:21)
[2024-04-24] MEDS ORDERED: ACETAMINOPHEN 1,000 MG/100 ML VIAL IV PRN (13:21)
[2024-04-24] MEDS ORDERED: NALOXONE HCL 0.4 MG/1 ML VIAL/CARP IV PRN (13:21)
[2024-04-24] MEDS ORDERED: oxyCODONE HCL IR 5 MG TAB (IMMEDIATE RELEASE) PO PRN (13:21)
[2024-04-24] MEDS ORDERED: bisacodyL 10 MG SUPP PR PRN (13:21)
[2024-04-24] MEDS ORDERED: HYDROmorphone INJ 1 MG/ML SYRINGE IV PRN (13:21)
[2024-04-24] MEDS ORDERED: HYDROmorphone INJ 0.5 MG/0.5 ML SYR IV PRN (13:21)
[2024-04-24] MEDS ORDERED: METOCLOPRAMIDE HCL INJ 5 MG/ML 2 ML VIAL IV PRN (13:21)
[2024-04-24] MEDS ORDERED: FAMOTIDINE 40 MG TABLET PO PRN (13:27)
[2024-04-24] MEDS ORDERED: ALBUTEROL HFA 8 GM INHALER INH PRN (13:27)
[2024-04-24] MEDS ORDERED: FLUTICASONE PROPIONATE NA SPR 16 GM BTL PRN (13:27)
[2024-04-24] MEDS ORDERED: LORATADINE 10 MG TAB PO PRN (13:27)
[2024-04-24] MEDS ORDERED: PHENYLEPHRINE 100MCG/ML 5ML SYR ONE (13:31)
--- NOTE | 2024-04-24 14:05 | Anesthesiology Progress Note ---
Date of Service April 24, 2024 Anesthesia Post Procedure Vital Signs Vital Signs: Temp Pulse Pulse Resp BP Pulse Ox O2 Del Method 04/24/24 13:55 64 20 126/76 97 Room Air 04/24/24 13:45 62 14 129/75 94 Room Air 04/24/24 13:35 60 16 121/62 98 Oxymask 04/24/24 13:24 36.1 C L 61 16 103/60 99 Oxymask 04/24/24 09:29 36.5 C 81 20 138/75 96 Room Air O2 Flow Rate 04/24/24 13:55 04/24/24 13:45 04/24/24 13:35 3 04/24/24 13:24 6 04/24/24 09:29 Transfer of Care Handoff Completed per policy Notes Mental Status: alert / awake / arousable Patient Amnestic to Procedure: Yes Nausea / Vomiting: adequately controlled Pain: adequately controlled Airway Patency, RR, SpO2: stable & adequate BP & HR: stable & adequate Hydration State: stable & adequate Neuraxial Anesthesia: was administered and sensory block is resolving Anesthetic Complications: no major complications apparent and Pt Satisfied with anesthetic care
[2024-04-24] MEDS: KETOROLAC TROMETHAMINE 15 MG/ML VIAL IV SCH (15:30)
--- NOTE | 2024-04-24 18:43 | XRay Report ---
EXAM: Radiographs of the Right Knee 2 Views INDICATION: Postop replacement. TECHNIQUE: Frontal and lateral views of the right knee. COMPARISON: 03/25/2024 FINDINGS: Bones/joints: Satisfactory appearance of total knee arthroplasty components. No fracture, subluxation or dislocation. Soft tissues: Expected soft tissue swelling and gas in the operative bed. IMPRESSION: Satisfactory appearance of right knee arthroplasty. Electronically signed by Asha Caruso 04-24-2024 6:43 PM
[2024-04-24] MEDS: SENNA 8.6 MG TAB PO SCH (20:27)
[2024-04-24] MEDS: DOCUSATE SODIUM 100 MG CAP PO SCH (20:27)
[2024-04-24] MEDS: MAGNESIUM OXIDE 400 MG TAB PO SCH (20:29)
[2024-04-24] MEDS: hydrALAZINE 10 MG TAB PO SCH (20:30)
[2024-04-24] MEDS: CHOLECALCIFEROL 25 MCG (1000 UNITS) TAB PO SCH (20:30)
[2024-04-24] MEDS: carvediloL 12.5 MG TAB PO SCH (20:30)
[2024-04-24] MEDS: POTASSIUM CHLORIDE 10 MEQ TABCR PO SCH (20:33)
[2024-04-24] MEDS: clonazePAM 1 MG TAB PO PRN (21:29)
[2024-04-24 23:00] VITALS: RESP 16
[2024-04-25 03:14] VITALS: O2SAT 95
[2024-04-25 07:46] VITALS: PULSE 76; TEMP 97.7
--- NOTE | 2024-04-25 08:18 | Orthopedic Progress Note ---
Date of Service April 25, 2024 Assessment & Plan (1) Status post right knee replacement: Overall she is doing very well. She is not having much pain in the right knee. She will be seen by physical therapy today for ambulation and range of motion exercises. She is on Xarelto for DVT prophylaxis. She the nursing staff can change her dressing after physical therapy. She can be discharged to home later today. She will follow-up with orthopedics in 2 weeks. Graham Rivera was seen and examined at bedside this morning. Overall she is doing very well. She is not having much pain in the right knee. She has been up and ambulating to the bathroom. She has no complaints.. Review of Systems All systems reviewed & are unremarkable except as noted in HPI & below. Physical Exam On physical exam of the right knee, the dressing is clean and dry. Her leg is out full extension. She has active dorsiflexion and plantarflexion of her right ankle.. Results & Data Results & Data Laboratory Results . Diagnostic Findings Postoperative x-rays of the right knee show the prosthesis to be in anatomic alignment without any evidence of fracture complication, or loosening.. PG Care Time/CCT Total # of Minutes Spent Total Time Spent with Patient: Total time spent is greater than 50% in coordination of care (as documented) at patient's floor/unit and/or counseling patient: Coding Level of Care Code 93640 Post Operative Follow-Up Diagnoses Status post right knee replacement Z96.651
--- NOTE | 2024-04-25 08:19 | Discharge Summary ---
Date of Service April 25, 2024 Principal Diagnosis Same as "Discharge Diagnosis" noted below under Discharge Instructions. Discharge Exam On physical exam of the right knee, the dressing is clean and dry. Her leg is out full extension. She has active dorsiflexion and plantarflexion of her right ankle.. Discharge Data Procedures Performed Operation Date: 04/24/24 11:00 Actual Procedures p Right Total Knee Arthroplasty(Right) - Delfin Vinson DO Ordered Studies 04/24/24 05:00 US - OR guided needle placemen Routine Hospital Course (1) Status post right knee replacement: On April 24, 2024 Nicole arrived at [facility] and underwent a right knee replacement without complication. She had a spinal anesthetic. Postoperatively she was started on Xarelto for DVT prophylaxis and transferred to the general orthopedic floors. Her hospital course was uneventful. On postop day #1, her vital signs were stable and her pain was well-controlled. She was able to participate well with physical therapy doing ambulation and range of motion exercises. She was then discharged to home. She will follow-up orthopedics in 2 weeks. PG Care Time/CCT Total # of Minutes Spent Total Time Spent with Patient: Total time spent is greater than 50% in coordination of care (as documented) at patient's floor/unit and/or counseling patient: Discharge Plan Discharge Items Patient Disposition: Home - Self-Care Reason For Visit: S/P RIGHT TOTAL KNEE ARTHROPLASTY Discharge Diagnosis: Right knee replacement Activity: Per Instructions section Non-emergency contact: Surgeon Call non-emergency contact if: your wound has increased redness and your wound has increased drainage Follow-up/Referrals: Tessie Pathak DO [Primary Care Provider] - Diet: Regular Addtl Attending Provider Instructions: Activity and Therapy Recommendations: * If you are using [facility] then therapy will be provided at your home until they feel you have accomplished all of your goals. * If you are using [facility] then Physical Therapy will be provided until they feel you are ready to start Outpatient Physical Therapy. * If you are not using home therapy then Outpatient Physical Therapy should start about 3-5 days from your day of surgery. Therapy will last about 6-10 weeks * It is important not to put a pillow under your knee when you are relaxing or sleeping. It is just as important to make sure you are getting your knee perfectly straight as it is to regain your knee bend. * You were shown a series of exercises in the hospital. Do these exercises three times each day including the exercises you were shown in physical therapy. * Get up and walk several times each day. For the first four weeks, try not to stand or walk for more than one hour at a time. If you do stand or walk for more than one hour, you will not hurt anything, but your leg will likely swell. * As you feel comfortable, you may change from the walker or crutches to a cane and then to independent walking. Medications: * Narcotic You will likely be sent home from the hospital with a prescription for the narcotic pain medication that worked best throughout your stay. * Cefadroxil -take the antibiotic twice a day for 10 days to help prevent infection. * Xarelto 10 mg for 2 weeks then resume your 20 mg daily dosing. * Other medications may be prescribed for specific circumstances. If you have any questions, please call the office at . * Resume previous home medications unless otherwise instructed TEDs/Elastic Stockings: The white elastic stockings help limit swelling and prevent blood clots from forming in your legs.~ The more you wear them, the more they work. Wear them for six weeks. Dressing Care: The dressing can be changed after physical therapy on postop day #1. Daily dry dressing changes for a few days, especially if the incision is still draining some. If the incision is not draining then you may leave the donita open to air. If there is a little bit of drainage or if the donita are getting stuck on your clothing then cover the incision with a dry dressing. The donita will be removed at your 2 week follow-up appointment. Showering: You may shower 5 days from the day of surgery as long as the incision is no longer draining. You may shower with the donita exposed. Let soapy water run over the donita and pat them dry. Do not scrub or soak the incision. Diet: You may resume your previous diet. Things To Watch For: * Drainage from the incision site that occurs more than one week after your surgery. * Increased redness at the incision site. * Fever above 102 degrees Fahrenheit. * Unusual chest pain or shortness of breath. * Call [facility] at with any of the above problems Follow-Up Visit: Follow-up with Dr. Vinson's PA (Delfin Gonzalez) 2-3 weeks after your day of surge ry. He will remove your donita and answer any questions. If you have any additional questions or concerns, Dr Vinson is usually in the office at the same time and will be available An appointment was probably scheduled when you signed-up for surgery in the office. If you have any questions call Office Instructions: More detailed instructions as well as Frequently Asked Questions were provided in a folder by our office when you signed-up for surgery. Please review these instructions when you get home. If you have any further questions or concerns, please feel free to call the office at [phone] Pending Studies at Discharge: No Stand-Alone Forms: [facility] Medications and DC Order Prescriptions: New oxycodone 5 mg Tablet 5 mg PO Q4H PRN (Reason: pain) Qty: 30 0RF cefadroxil 500 mg capsule 500 mg PO BID 10 Days Qty: 20 0RF Xarelto 10 mg tablet 10 mg PO DAILY 14 Days Qty: 14 0RF Continued (DME) Davida Max [facility] See Rx Instructions .MEDSUPPLY Qty: 1 0RF Rx Instructions: As directed (DME) lemuel [facility] See Rx Instructions .MEDSUPPLY Qty: 1 0RF Rx Instructions: As directed hydralazine 10 mg Tablet 10 mg PO BID clonazepam 1 mg Tablet 1 mg PO HS PRN (Reason: Restless Leg(S)) albuterol sulfate [Ventolin HFA] 90 mcg/actuation Hfa Aerosol Inhaler 2 puff INHALATION Q4H PRN (Reason: Cough) cholecalciferol (vitamin D3) 1,000 unit Capsule 1,000 unit PO BID losartan 50 mg Tablet 50 mg PO QAM amoxicillin 500 mg Capsule 2,000 mg PO DIRECTED PRN (Reason: PRIOR TO DENTAL APPT.) potassium chloride [Klor-Con M10] 10 mEq tablet,ER particles/crystals 10 meq PO HS Rx Instructions: STOPPED 11/15/21, REPLACED WITH SPIRONLACTONE famotidine 40 mg Tablet 40 mg PO HS PRN (Reason: Heartburn) valacyclovir [Valtrex] 1 gram Tablet 2,000 mg PO Q12H PRN (Reason: Cold Sores) spironolactone 25 mg tablet 25 mg PO QAM Rx Instructions: WILL START 11/16/21. furosemide 20 mg tablet 20 mg PO QAM fluticasone propionate [Flonase] 50 mcg/actuation [place],Suspension 2 spray INTRANASAL DAILY PRN (Reason: sinus congestion) loratadine [Claritin] 10 mg Tablet 10 mg PO DIRECTED PRN (Reason: Congestion) Rx Instructions: TAKE 1-2 X WEEK, NEEDED. magnesium oxide 400 mg magnesium Tablet 400 mg PO BID calcium carbonate-vitamin D3 [Calcium 600 + D(3)] 600 mg-5 mcg (200 unit) Tablet 1 tab PO QAM alendronate 70 mg Tablet 70 mg PO WK Probiotic 10 billion cell Capsule 10,000 mmu cells PO QAM carvedilol 12.5 mg Tablet 12.5 mg PO BID Rx Instructions: must administer with a meal/food Held Xarelto 15 mg Tablet 15 mg PO PM Hold Instructions: Resume on 05/09/24. Rx Instructions: must administer with evening meal Discharge Orders: Discharge Order (Routine); Ordered 04/25/24 Ordered By: Delfin Vinson Admission Data Admit Date/Time: 04/24/24 13:21 Attending Provider: Delfin Vinson Admit Provider: Delfin Vinson Primary Care Provider: Tessie Pathak
[2024-04-25] MEDS: CALCIUM 600MG + VIT D 400 IU TAB PO SCH (09:44)
[2024-04-25] MEDS: dexAMETHasone 4 MG TAB PO SCH (09:44)
[2024-04-25] MEDS: FUROSEMIDE 20 MG TAB PO SCH (09:44)
[2024-04-25] MEDS: SPIRONOLACTONE 25 MG TAB PO SCH (09:45)
[2024-04-25] MEDS: ADVANCED PROBIOTIC 625 MG CAPSULE PO SCH (09:45)
[2024-04-25] MEDS: MULTIVITAMIN TAB PO SCH (09:45)
[2024-04-25] MEDS: LOSARTAN POTASSIUM 50 MG TAB PO SCH (09:45)
[2024-04-25] MEDS: RIVAROXABAN 10 MG TABLET PO SCH (09:46)
[2024-04-25 11:00] VITALS: BP 126/70
[2024-04-27] MEDS ORDERED: ALENDRONATE SODIUM 70 MG TAB PO SCH (06:00)
== END 2024-04-25 12:07 | disposition home or self-care (01) ==
LOC: 3E 08:53 → ASU 08:53